=== PATIENT | female | born 1940 | race Caucasian/White ===

== ENCOUNTER 2025-06-18 18:56 | Inpatient (IN) | payer MEDICARE, BC, SELFPAY ==
--- OUTSIDE RECORDS SUMMARY | 2025-06-15 13:13 | XMS_ITS | Encounter Summary ---
Author Organization [facility] Address [address] [place] [address] Care Team Providers Care [employer] Portal Developer Name Role Phone Nieves Bella MD Primary Care Pr ovider Reason for Visit * Reason Comments Altered Mental Status Encounter Details Date Type Department Care Team (Late st Contact Info) Description 06/15/2025 1:13 PM EST - 06/15/2025 9:31 PM EST Emergency [facility] Emergency Department [address] [place] [address] Gato Harrison MD [address] [place] [address] [phone] Vivian Lake MD [address] [place] [address] [phone] Altered mental status, unspecified altered mental status type (Primary Dx) Discharge Disposition: Prison Facility (03) Social History Tobacco Use Types Packs/Day Years Used Date Smoking Tobacco: Never Smokeless Tobacco: Never Alcohol Use Standard Drinks/Week Comments Never 0 (1 standard drink = 0.6 oz pur e alcohol) Hunger Vital Sign Answer Date Recorded Within the past 12 months, y ou worried that your food would run out before you got the money to buy more. Never true 05/06/20 25 Within the past 12 months, t he food you bought just didn't last and you didn't have money to get more. Never true 05/06/2025 [facility] Utilities Answer Date Recorded In the past 12 months has th e electric, gas, oil, or water company threatened to shut off services in your home? No 05/06/2025 Transportation Answer Date Recorded In the past 12 months, has l ack of reliable transportation kept you from medical appointments, meetings, work or from getting things needed for daily living? No 05/06/2025 Housing Answer Date Recorded Housing Risk Low 2 05/06/2025 Housing Risk Medium Not on file 05/06/2025 Housing Risk High Not on file 05/06/2025 What is your living situation today? LSSTEADY 05/06/2025 Comments No Sex and Gender Information Value Date Recorded Sex Assigned at Female 09/17/2023 11:05 AM EST Legal Sex Female 2:10 PM EDT Gender Identity Female 09/17/2023 11:20 AM EST Sexual Orientation Straight 09/17/2023 11 :20 AM EST documented as of this encounter Last Filed Vital Signs Vital Sign Reading Time Taken Comments Blood Pressure 144/66 06/15/2025 9:10 PM EST Pulse 69 06/15/2025 9:10 PM EST Temperature 36.6 C (97.8 F) 06/15/2025 9:10 PM EST Respiratory Rate 14 06/15/2025 9:10 PM EST Oxygen Saturation 99% 06/15/2025 9:10 PM EST Inhaled Oxygen Concentration - - Weight - - Height - - Body Mass Index - - documented in this encounter Discharge Instructions * Discharge Instructions* Vivian Lake MD - 06/15/2025 8:36 PM EST You were seen in the emergency department because of agitation and aggressive behavior. There was concern that you had a urinary tract infection but our test here show you do not have a urinary tractinfection. You were given olanzapine 5 mg to help you calm down and allowed you to cooperate much more freely. Follow- up with your rehab facility as discussed. Continue with your current medications. Consider olanzapine 5 mg p.o. for agitation. documented in this encounter Medications at Time of Discharge aspirin 81 mg capsule Take 1 tablet by mouth every 24 hours. atorvastatin (LIPITOR) 40 mg tablet Take 1 tablet by mouth once a day. carbidopa-levodop a (SINEMET) 25-100 mg tablet Take 2 tablets by mouth 3 times a day. carbidopa-levodop a ER/CR (SINEMET ER/CR) 25-100 mg tablet Take 1 tablet by mouth daily. 04/14/2025 cyanocobalamin (VITAMIN B12) 1,000 mcg tablet Take 500 mcg by mouth daily. 03/31/2025 famotidine (PEPCID) 20 mg tablet Take 20 mg by mouth daily. 03/31/2025 gabapentin (NEURONTIN) 100 mg capsule Take 100 mg by mouth 3 times daily. 05/04/2025 levETIRAcetam (KEPPRA) 500 mg tablet Take 500 mg by mouth 2 times daily. 03/31/2025 levothyroxine (SYNTHROID, LEVOTHROID) 50 mcg tablet Take 1 tablet by mouth once a day. meloxicam (MOBIC) 15 mg tablet Take 15 mg by mouth daily. 05/01/2025 metoprolol succinate 25 mg capsule,sprinkle, ER 24hr 12.5 capsules every 24 hours. olmesartan (BENICAR) 20 mg tablet SMARTSI Tablet(s) By Mouth Daily omeprazole (PriLOSEC) 20 mg capsuleIndication s:Laryngopharynge al reflux (LPR) TAKE 1 CAPSULE BY MOUTH EVERY DAY 30 capsule 1 12/16/2024 Oyster Shell Calcium-Vit D3 500 mg-10 mcg (400 unit) tablet SMARTSI Tablet(s) By Mouth Twice Daily 03/31/2025 predniSONE (DELTASONE) 2.5 mg tablet Take 5 mg by mouth daily. 04/27/2025 venlafaxine XR (EFFEXOR XR) 150 mg capsule Take 1 capsule by mouth once a day. documented as of this encounter Miscellaneous Notes * ED Continuation of Care - Vivian Lake MD - 06/15/2025 8:37 PM EST ED Continuation of Care 06/15/25 8:37 PM Sign out from Dr. Gato Harrison Md Patient was left pending urinalysis for possible urinary tract infection. Patient's urinalysis showed no sign of infection. I spoke with the patient's nurse at her rehab facility and discussed the workup and how she had presented here. She had presented with agitation and aggression but calm and after a small amount of sertraline here. Patient here is now calm cooperative and willing to go back and wants to work towards finishing her hip so she can go home. RON Tequila Dalton : 1940 CSN: [id number] * Emergency Department Information Exchange - ONELIA - Onelia Interface - 06/15/2025 1:06 PM EST [facility] NOTIFICATION 06/15/2025 13:06 TEQUILA DALTON : 1940 [facility]'s patient encounter information: MRN:?[id number] Account Number:?[id number] Billing Account Number:?[id number] Criteria Met High-Utilizers: 6 ED Visits in 6 Months Security and Safety No Security Events were found. ED Care Guidelines There are currently no ED Care Guidelines for this patient. Please check your facility's medical records system. Prescription Drug Data No Prescription Drug Data was found. E.D. Visit Count (12 mo.) Facility Visits [facility] 5 [facility] 2 Total 7 Note: Visits indicate total known visits. Recent Emergency Department Visit Summary Date Facility [facility] State Type Diagnoses or Chief Complaint Jun 15, 2025 [facility] [place] 20[place] [facility] [place] Unspecified fall, initial encounter Contusion of right elbow, initial encounter Fall Arm Injury May 05, 2025 [facility] Emergency Unspecified fall, initial encounter Radiculopathy, lumbar region Syncope and collapse Fall Fall; Back Pain, Leg Pain [facility] [place] [facility] Sciatica, right side Back Pain Body pain Feb 26, 2025 [facility] Emergency Lesion of sciatic nerve, left lower limb Flank Pain Abdominal Pain Feb 25, 2025 [facility] Emergency Urinary tract infection, site not specified Altered Mental Status Confusion Jul 19, 2024 [facility] Emergency Tremors Recent Inpatient Visit Summary Date Facility [facility] Type Diagnoses or Chief Complaint May 05, 2025 [facility] Internal Medicine Unspecified fall, initial encounter Syncope and collapse Radiculopathy, lumbar region Care Team Provider Specialty Phone Fax Service Dates NIEVES BELLA MD Internal Medicine Current FELIX HDZ MD Internal Medicine Current KARL RUTH D.O. Family Medicine [facility] [place] This patient has registered at the [facility] Emergency Department For more information visit: [email or web address] PLEASE NOTE: 1. Any care recommendations and other clinical information are provided as guidelines or for historical purposes only, and providers should exercise their own clinical judgment when providing care. 2. You may only use this information for purposes of treatment, payment or health care operations activities, and subject to the limitations of applicable [employer] Policies. 3. You should consult directly with the organization that provided a care guideline or other clinical history with any questions about additional information or accuracy or completeness of information provided. ? 2024 [employer] documented in this encounter Plan of Treatment Not on file documented as of this encounter Procedures * Due to [place] state law, this organization might not be sharing negative HIV tests. Procedure Name Priority Date/Time Associated Diagnosis Comments URINALYSIS W/REFLEX TO MICROSCOPIC & CULTURE Routine 06/15/2025 7:34 PM EST MICROSCOPIC URINALYSIS ONLY Routine 06/15/2025 7:34 PM EST UA/CULTURE REFLEX Routine 06/15/2025 7:3 4 PM EST CBC AUTO DIFFERENTIAL STAT 06/15/2025 2:46 PM EST COMPREHENSIVE METABOLIC PANEL STAT 06/15/2025 2:46 PM EST documented in this encounter Results * Due to [place] state law, this organization might not be sharing negative HIV tests. * (ABNORMAL) Microscopic Urinalysis Only (06/15/2025 7:34 PM EST) WBC, Urine 0 0 - 2 /HPF [facility] 06/15/2025 8:01 PM EST [facility] RBC, Urine 2 0 - 2 /HPF [facility] 06/15/2025 8:01 PM EST [facility] Bacteria, Urine Rare(A) None /HPF /HPF [facility] 06/15/2025 8:01 PM EST [facility] Hyaline Casts, Urine 0 0 - 2 /LPF [facility] 06/15/2025 8:01 PM EST [facility] Squamous Epithelial Cells, Urine 0 /HPF [facility] 06/15/2025 8:01 PM EST [facility] Urine Urine specimen collection, clean catch / Unknown Non-Blood Collection / Unknown 06/15/2025 7:34 PM EST 06/15/2025 7:47 PM EST us Gato Harrison MD LAB URINE ORDERABLES Final Res ult [facility] [address] [place] [id number], [place] * (ABNORMAL) Urinalysis W/Reflex to Microscopic & Culture (06/15/2025 7:34 PM EST) Color, Urine Light Yellow Colorless, Light Yellow, Yellow, Dark Yellow 06/15/2025 7:51 PM EST [facility] Clarity, Urine Clear Clear 06/15/2025 7:51 PM EST [facility] Specific [place], Urine 1.015 <1.030 06/15/2025 7:51 PM EST [facility] pH, Urine 7.5 5.0 - 8.0 06/15/2025 7:51 PM EST [facility] Protein, Urine Negative Negative 06/15/2025 7:51 PM EST [facility] Glucose, Urine Negative Negative 06/15/2025 7:51 PM EST [facility] Ketones, Urine Negative Negative 06/15/2025 7:51 PM EST [facility] Bilirubin, Urine Negative Negative 06/15/2025 7:51 PM EST [facility] Blood, Urine Trace(A) Negative 06/15/2025 7:51 PM EST [facility] Nitrite, Urine Negative Negative 06/15/2025 7:51 PM EST [facility] Urobilinogen , Urine Normal Normal 06/15/2025 7:51 PM EST [facility] Leukocyte Esterase, Urine Negative Negative 06/15/2025 7:51 PM EST [facility] Urine Urine specimen collection, clean catch / Unknown Non-Blood Collection / Unknown 06/15/2025 7:34 PM EST 06/15/2025 7:47 PM EST [facility] - 06/15/2025 7:51 PM EST Some urinalysis results will not meet the criteria for reflex urine culture although certain urine values may be abnormal. Additional testing can be ordered by the provider if clinically warranted. us Gato Harrison MD LAB URINE ORDERABLES Final Res ult [facility] [address] [place] [address], [place] * (ABNORMAL) CMP - Comprehensive Metabolic Panel (06/15/2025 2:46 PM EST) NA 141 135 - 145 mmol/L 06/15/2025 3:40 PM EST [facility] K 3.3(L) 3.5 - 5.3 mmol/L 06/15/2025 3:40 PM EST [facility] Cl 100 97 - 110 mmol/L 06/15/2025 3:40 PM EST [facility] CO2 29 22 - 32 mmol/L 06/15/2025 3:40 PM EST [facility] Anion Gap 12 5 - 15 06/15/2025 3:40 PM EST [facility] Glucose 142(H) 65 - 99 mg/dL 06/15/2025 3:40 PM EST [facility] Creatinine 0.83 0.50 - 1.20 mg/dL 06/15/2025 3:40 PM EST [facility] Calcium 10.0 8.6 - 10.5 mg/dL 06/15/2025 3:40 PM EST [facility] Total Protein 6.9 6.0 - 8.0 g/dL 06/15/2025 3:40 PM EST [facility] Albumin 4.4 3.5 - 5.2 g/dL 06/15/2025 3:40 PM EST [facility] Bilirubin, Total 0.5 0.2 - 1.2 mg/dL 06/15/2025 3:40 PM EST [facility] Alkaline Phosphatase 77 35 - 129 U/L 06/15/2025 3:40 PM EST [facility] AST 24 10 - 40 U/L 06/15/2025 3:40 PM EST [facility] ALT 15 10 - 40 U/L 06/15/2025 3:40 PM EST [facility] BUN 25(H) 7 - 23 mg/dL 06/15/2025 3:40 PM EST [facility] eGFR 69 >=60 mL/min/1 .73m2 06/15/2025 3:40 PM EST [facility] Comment:The estimated glomer ular filtration rate (eGFR) is calculated using a new formula developed by the NKF-ASN task force to eliminate race-based correction factors. The new formula uses serum/plasma creatinine, age, and gender to determine eGFR. A value below 60mls/min might indicate kidney disease and will be flagged. For additional information, see [place] et al, Am J Kidney Dis. 2021;79(2):268- 288, A Unifying Approach for GFR estimation: Recommendations of the NKF-ASN Task Force on Reassessing the Inclusion of Race in Diagnosing Kidney Disease . Globulin, Total 2.5 2.1 - 4.2 g/dL 06/15/2025 3:40 PM EST [facility] A/G Ratio 1.8 1.5 - 3.0 06/15/2025 3:40 PM EST [facility] Blood Structure of peripheral vein / Unknown Venipuncture / Unknown 06/15/2025 2:46 PM EST 06/15/2025 3:06 PM EST us Gato Harrison MD LAB BLOOD ORDERABLES Final Res ult [facility] [address] [place] [address], [place] * (ABNORMAL) CBC Auto Differential (06/15/2025 2:46 PM EST) [facility] WBC 8.7 3.8 - 10.8 10*3/uL 06/15/2025 3:11 PM EST [facility] RBC 4.20 3.80 - 5.10 10*6/uL 06/15/2025 3:11 PM EST [facility] Hemoglobin 12.6 11.7 - 15.5 g/dL 06/15/2025 3:11 PM EST [facility] Hematocrit 37.7 35.0 - 45.0 % 06/15/2025 3:11 PM EST [facility] MCV 89.8 80.0 - 100.0 fL 06/15/2025 3:11 PM EST [facility] MCH 30.0 27.0 - 33.0 pg 06/15/2025 3:11 PM EST [facility] MCHC 33.4 32.0 - 36.0 g/dL 06/15/2025 3:11 PM EST [facility] RDW 14.4 11.0 - 15.0 % 06/15/2025 3:11 PM EST [facility] Platelets 232 140 - 400 10*3/uL 06/15/2025 3:11 PM EST [facility] MPV 11.1 7.5 - 12.5 fL 06/15/2025 3:11 PM EST [facility] Neutrophil % 85.0 % 06/15/2025 3:11 PM EST [facility] Immature Grans % 0.2 0.0 - 0.9 % 06/15/2025 3:11 PM EST [facility] Lymphocyte % 9.4 % 06/15/2025 3:11 PM EST [facility] Monocyte % 5.1 % 06/15/2025 3:11 PM EST [facility] Eosinophil % 0.1 % 06/15/2025 3:11 PM EST [facility] Basophil % 0.2 % 06/15/2025 3:11 PM EST [facility] Neutrophil # 7.36 1.50 - 7.80 10*3/uL 06/15/2025 3:11 PM EST [facility] Immature Grans # <0.03 <=0.03 10*3/uL 06/15/2025 3:11 PM EST [facility] Lymphocyte # 0.80(L) 0.85 - 3.90 10*3/uL 06/15/2025 3:11 PM EST [facility] Monocyte # 0.40 0.20 - 0.95 10*3/uL 06/15/2025 3:11 PM EST [facility] Eosinophil # <0.03 0.02 - 0.50 10*3/uL 06/15/2025 3:11 PM EST [facility] Basophil # <0.03 0.00 - 0.20 10*3/uL 06/15/2025 3:11 PM EST [facility] nRBC % 0.0 /100 WBCs 06/15/2025 3:11 PM EST [facility] nRBC # <0.01 <0.01 10*3/uL 06/15/2025 3:11 PM EST [facility] Blood Structure of peripheral vein / Unknown Venipuncture / Unknown 06/15/2025 2:46 PM EST 06/15/2025 3:06 PM EST Gato Harrison MD LAB BLOOD ORDERABLES Final Res ult [facility] [address] [place] [address], documented in this encounter Visit Diagnoses Diagnosis Altered mental status, unspecified altered mental status type- Primary documented in this encounter Administered Medications Inactive Administered Medications - up to 3 most recent administrations Medication Order MAR Action Action Date Dose Rate Site carbidopa-levodopa (SINEMET) 25-100 mg tablet 2 tablet 2 tablet, oral, 3 times daily, First dose on Sun06/15/25 at 1455, Until Discontinued carbidopa-levodopa ER/CR (SINEMET ER/CR) 25-100 mg 1 tablet 1 tablet, oral, Nightly, First dose on Sun06/15/25 at 2100, Until Discontinued, Do not crush or chew. Given 06/15/2025 9:05 PM EST 1 tablet OLANZapine (ZyPREXA) injection 5 mg 5 mg, intramuscular, Once, On Sun06/15/25 at 1340, 1 dose, Reconstitute with 2.1 mL of sterile water for injection. Concentration = 5 mg/mL. Given 06/15/2025 1:47 PM EST 5 mg Left Ventrogluteal OLANZapine (ZyPREXA) injection 5 mg 5 mg, intramuscular, Once, On Sun06/15/25 at 1420, 1 dose, Reconstitute with 2.1 mL of sterile water for injection. Concentration = 5 mg/mL. Given 06/15/2025 2:28 PM EST 5 mg Other sterile water injection Pyxis Override Pull Starting on Sun06/15/25 at 1340, 1 dose, Until Sun06/15/25 at 1345, Created by cabinet override Given 06/15/2025 1:45 PM EST documented in this encounter Active and Recently Administered Medications Times are shown in EST. Scheduled Medication Order 06/13/2025 06/14/2025 06/15/2025 carbidopa-levodopa (SINEMET) 25-100 mg tablet 2 tablet 2 tablet, oral, 3 times daily, First dose on Sun06/15/25 at 1455, Until Discontinued 1746 (Not Given - Pr ovider: Tammy Khan RN - Reason: Patient/family refused)2100 (Due) carbidopa-levodopa ER/CR (SINEMET ER/CR) 25-100 mg 1 tablet 1 tablet, oral, Nightly, First dose on Sun06/15/25 at 2100, Until Discontinued, Do not crush or chew. 2104 (Given - Provid er: Priti Batista RN) OLANZapine (ZyPREXA) injection 5 mg (COMPLETED) 5 mg, intramuscular, Once, On Sun06/15/25 at 1340, 1 dose, Reconstitute with 2.1 mL of sterile water for injection. Concentration = 5 mg/mL. 1347 (Given - Provid er: Sonia Cat RN - Comment: Given by Denice LEIVA) OLANZapine (ZyPREXA) injection 5 mg (COMPLETED) 5 mg, intramuscular, Once, On Sun06/15/25 at 1420, 1 dose, Reconstitute with 2.1 mL of sterile water for injection. Concentration = 5 mg/mL. 1428 (Given - Provid er: Sonia Cat RN - Comment: R dorsigluteal muscle.) No Frequency Medication Order 06/13/2025 06/14/2025 06/15/2025 sterile water injection Pyxis Override Pull (COMPLETED) Starting on Sun06/15/25 at 1340, 1 dose, Until Sun06/15/25 at 1345, Created by cabinet override 1345 (Given - Provid er: Tammy Khan RN) documented in this encounter Care Teams [employer] Portal Developer Relationship Specialty Start Date End Date Nieves Bella MD [address] [place] [id number] PCP - General Internal Medicine 09/17/23 documented as of this encounter
--- OUTSIDE RECORDS SUMMARY | 2025-06-16 19:24 | XMS_ITS | Encounter Summary ---
Author Organization [facility] Address [address] [place] [address] Care Team Providers Care Fur Stylist Name Role Phone Nieves Bella MD Primary Care Pr ovider Reason for Visit * Reason Comments Mental Health Problem Encounter Details Date Type Department Care Team (Late st Contact Info) Description 06/16/2025 7:24 PM EST - 06/18/2025 5:13 PM EST Emergency [facility] Emergency Department [address] [place] [address] Trent Warner MD [address] [place] [id number] Collette Brantley DO [address] [place] [phone] Billy Edouard DO [address] [place] [address] Niya Mace MD [address] [place] [phone] Jad Echols MD [address] [place] [address] [phone] Torrey Contreras MD [address] [place] [address] [phone] Discharge Disposition: Short Term/Acute Care [facility] (02) Social History Tobacco Use Types Packs/Day Years [...] money to get more. Never true 05/06/2025 [facility] Utilities Answer Date Recorded In the [...] Sign Reading Time Taken Comments Blood Pressure 146/61 06/18/2025 5:07 PM EST Pulse 65 06/18/2025 5:07 PM EST Temperature 36.8 C (98.2 F) 06/18/2025 5:07 PM EST Respiratory Rate 18 06/18/2025 5:07 PM EST Oxygen Saturation 100% 06/18/2025 5:07 PM EST Inhaled Oxygen Concentration - - Weight 47.6 kg (105 lb) 06/16/2025 8:05 PM EST Height 149.9 cm (4' 11 ) 06/16/2025 8:05 PM EST Body Mass Index 21.21 06/16/2025 8:05 PM EST documented in this encounter Medications at Time of Discharge amLODIPine (NORVASC) 5 mg tablet Take 0.5 tablets (2.5 mg total) by mouth once a day. 15 tablet 05/08/2025 aspirin 81 mg capsule Take 1 tablet [...] a day. documented as of this encounter ED Notes * Trent Warner MD - 06/16/2025 7:23 PM EST 84 y.o. female with presenting to the ED for evaluation of mental status changes Chief Complaint Patient presents with Mental Health Problem 84-year-old female patient who presents with agitation, aggressive behavior, was seen at the ER yesterday, for similar, discharged on as needed dosing of Zyprexa, but stated paranoia, concerned aboutbeing poisoned, would not take the medication, so she was referred to the emergency department for additional evaluation. The patient herself declares no complaints. History provided by: Patient and EMS personnel History limited by: Dementia Past Medical History: Diagnosis Date Brain aneurysm (HCC) Hypertension Myocardial infarction Parkinson disease Past Surgical History: Procedure Laterality Date BACK SURGERY CARDIAC SURGERY No family history on file. Social History Tobacco Use Smoking status: Never Smokeless tobacco: Never Vaping Use Vaping status: Never Used Substance Use Topics Alcohol use: Never Drug use: Never Vitals: 06/16/25 19306/16/252004 BP: 133/57 BP Location: Left arm Patient Position: Lying Pulse: 67 Resp: 16 Temp: 37 ??C (98.6 ??F) TempSrc: Oral SpO2: 98% Weight: 47.6 kg (105 lb) Height: 1.499 m (4' 11 ) Physical Exam Vitals and nursing note reviewed. Constitutional: Appearance: Normal appearance. Comments: Somnolent, does awaken to voice HENT: Head: Normocephalic and atraumatic. Right Ear: External ear normal. Left Ear: External ear normal. Nose: Nose normal. Mouth/Throat: Mouth: Mucous membranes are dry. Pharynx: Oropharynx is clear. Eyes: Extraocular Movements: Extraocular movements intact. Conjunctiva/sclera: Conjunctivae normal. Pupils: Pupils are equal, round, and reactive to light. Cardiovascular: Rate and Rhythm: Normal rate and regular rhythm. Pulses: Normal pulses. Heart sounds: Normal heart sounds. Pulmonary: Effort: Pulmonary effort is normal. No respiratory distress. Breath sounds: Normal breath sounds. No wheezing, rhonchi or rales. Abdominal: General: Abdomen is flat. There is no distension. Tenderness: There is no abdominal tenderness. Musculoskeletal: General: No swelling or tenderness. Normal range of motion. Cervical back: Normal range of motion and neck supple. Skin: General: Skin is warm and dry. Capillary Refill: Capillary refill takes less than 2 seconds. Coloration: Skin is not jaundiced. Neurological: Mental Status: Mental status is at baseline. Psychiatric: Behavior: Behavior normal. Labs Reviewed CBC AUTO DIFFERENTIAL - Abnormal Result Value WBC 9.0 RBC 4.06 Hemoglobin 12.3 Hematocrit 37.3 MCV 91.9 MCH 30.3 MCHC 33.0 RDW 14.4 Platelets 236 MPV 11.0 Neutrophil % 85.3 Immature Grans % 0.2 Lymphocyte % 8.9 Monocyte % 5.4 Eosinophil % 0.0 Basophil % 0.2 Neutrophil # 7.68 Immature Grans # <0.03 Lymphocyte # 0.80 (*) Monocyte # 0.50 Eosinophil # <0.03 Basophil # <0.03 nRBC % 0.0 nRBC # <0.01 BASIC METABOLIC PANEL - Abnormal NA 142 K 4.0 Cl 103 CO2 30 BUN 30 (*) Creatinine 1.55 (*) Glucose 160 (*) Calcium 9.9 Anion Gap 9 eGFR 33 (*) RAPID COVID-19 RNA FOR SURVEILLANCE (ED ONLY) - Normal PCR, SARS CoV-2 RNA Not Detected Narrative: This test was developed, validated and its performance characteristics determined by [facility]. This test has not been cleared or approved by the U.S. Food and Drug Administration (FDA). FDA Policy for Diagnostic Tests for Coronavirus Disease-2019 during the Public Health Emergency issuedOctober 20, 2019, is followed. URINALYSIS W/REFLEX TO MICROSCOPIC & CULTURE Narrative: The following orders were created for panel order Urinalysis W/Reflex to Microscopic & Culture. Procedure Abnormality Status --------- ------ Urinalysis W/Reflex to M...[[id number]] Please view results for these tests on the individual orders. UA/CULTURE REFLEX CT Head WO Contrast Final Result No acute intracranial abnormality. If this radiology report contains a blank impression section, it is an incomplete radiology report.Please contact the interpreting radiologist or applicable radiology division as soon as possible toobtain the completed interpretation. Workstation ID: [id number] Medications lactated Ringer's (LR) bolus 1,000 mL (0 mL intravenous Stopped 06/16/252236) OLANZapine (ZyPREXA) injection 5 mg (5 mg intramuscular Given 06/16/25 3713) Assessment and Plan: 84-year-old female patient presenting with behavioral changes, was seen yesterday at this ER, sent home on Zyprexa but based on paranoia, delusions, did not take any the medications, in the emergency department today she is initially quite somnolent, but then when attempting to move became agitated. Received Zyprexa. Labs remarkable for a doubling of her creatinine, as it seems that she has actually been withholding liquid from herself because she feels that she is being poisoned at her current living facility. Given this, she will certainly benefit from likely inpatient level of care, awaiting urinalysis, providing IV hydration therapy, plan to consult [facility] and she willlikely be a geriatric psychiatric bed search. Trent Warner MD 06/16/25 9895 documented in this encounter Miscellaneous Notes * ED Continuation of Care - Trent Warner MD - 06/18/2025 12:30 PM EST ED Continuation of Care 06/18/2025 12:30 PM Sign out from Dr. Jad Echols Md Handoff Patient awaiting [facility] / placement. BMP resolved PAPI, EKG with TWI but nothing actionable. Medically clear Shift Events ED Course as of 06/18/25 1230 Lauren Jun 18, 2025 1222 Reviewed EKG - nonspecific twi inferiorly; no ischemia [JH] ED Course User Index [JH] Trent Warner MD Assessment and Plan: Medically clear for psych admit Tequila Hernandez : 1940 [facility]: [id number] * Plan of Care - AMILCAR Bae - 06/18/2025 10:18 AM EST SALES VICE PRESIDENT participated in Emergency Department/Behavioral Health rounds with [facility] team members via video conferencing. Present on the call were representatives from [facility], [facility], [facility], and [facility] care coordination and leadership. Pt's plan of care was discussed and the following is a clinical update: GPU bed search is ongoing. Shira is reviewing. Per [facility], pt's risk level in the community is mild and risk level in the hospital is negligible. SALES VICE PRESIDENT will remain available for pt support and coordination of pt's plan of care. AMILCAR Bae * ED Continuation of Care - Jad Echols MD - 06/18/2025 5:41 AM EST ED Continuation of Care 06/18/2025 5:41 AM Sign out from Dr. Niya Mace Md Assessment and Plan: This patient has had a somewhat twiddling course here in the emergency room over the arc of the day and evening shift today. The patient was given olanzapine last night and has been recurrently somnolent since that time period. The patient had relatively little oral intake overthe course of the day and evening shifts and had changes in her urine output. The patient has been putting out a small amount of much darker and more concentrated urine. She was given a liter bolus on the evening shift by Dr. Mace, but this did not improve her urine output or sensorium. I askedthat the nurses obtain a repeat BMP on the patient and provided some additional IV fluid hydration here in the emergency room, along with maintenance fluids. Nursing will also perform bladder scan toensure that the patient does not have any urine retention issues. I have ordered a repeat urine to be sent for further evaluation to ensure he does not have a burgeoning urinary tract infection that requires treatment, although her urine yesterday was relatively normal. The patient continues at this time to be a hold for [facility] psych placement. I will discuss the changes in sensorium with the daytime provider for further disposition planning. Tequila Bragaros : 1940 CSN: [id number] * ED Continuation of Care - Billy Edouard DO - 06/17/2025 4:21 PM EST ED Continuation of Care 06/17/25 4:21 PM Sign out from Dr. Collette Brantley DO MDM Patient received on sign out, awaiting crisis [facility] psych placement for behavioral health issues. Patient has already been medically cleared. Patient is currently on section 12 hold. No other acute issues signed over to me and nothing else pending at this time. No acute issues brought to my attention while under my care. Remainder of care and final disposition signed over to ED colleague Tequila M Sha : 1940 CSN: [id number] * ED Continuation of Care - Niya Mace MD - 06/17/2025 3:52 PM EST ED Continuation of Care 06/17/25 3:52 PM Sign out [address] Dr. Billy Edouard Do. 84-year-old female with history of Parkinson's, [facility], she has had increased confusion and aggressive behavior. Shealso has paranoia about being poisoned. Typically, she lives at home with her son. She is on a section 12. At time of signout, [facility] evaluation is pending. MDM 1530: Patient has been evaluated by Dorothy from [facility], who recommends [facility] admission. Patient has had no p.o. intake during my shift and very little activity. Nurse has noted that the urine is dark. Urine output is decreased. Will treat with a liter of lactated Ringer's and attempt toambulate patient. Patient signed out to Dr. Echols at 2315. Tequila López Sha : 1940 CSN: [id number] * Emergency Department Information Exchange - [facility] [place] [facility] - 06/16/2025 7:24 PM EST [facility] NOTIFICATION 06/16/2025 19:23 TEQUILA HERNANDEZ : 1940 [facility]'s patient encounter information: MRN:[id number] Account Number:?[id number] Billing Account Number:?[id number] Criteria Met High-Utilizers: 6 ED Visits in 6 Months Security and Safety No Security Events were found. ED Care Guidelines There are currently no ED Care Guidelines for this patient. Please check your facility's medical records system. Prescription Drug Data No Prescription Drug Data was found. E.D. Visit Count (12 mo.) Facility Visits [facility] 5 [facility] 3 Total 8 Note: Visits indicate total known visits. Recent Emergency Department Visit Summary Date Facility [facility] State Type Diagnoses or Chief Complaint Jun 16, 2025 [facility] [place] Emergency Altered Mental Status Jun 15, 2025 [facility] [place] Emergency Altered mental status, unspecified Altered Mental Status May 26, 2025 [facility]. [place] Emergency Unspecified fall, initial encounter Contusion of right elbow, initial encounter Fall Arm Injury May 05, 2025 [facility] Emergency Unspecified fall, initial encounter Radiculopathy, lumbar region Syncope and collapse Fall Fall; Back Pain, Leg Pain May 03, 2025 [facility] Emergency Sciatica, right side Back Pain Body pain Feb 26, 2025 [facility] Emergency Lesion of sciatic nerve, left lower limb Flank Pain Abdominal Pain Feb 25, 2025 [facility] Emergency Urinary tract infection, site not specified Altered Mental Status Confusion Jul 19, 2024 [facility] Emergency Tremors Recent Inpatient Visit Summary Date Facility [facility] State Type Diagnoses or Chief Complaint May 05, 2025 [facility] Internal Medicine Unspecified fall, initial encounter Syncope and collapse Radiculopathy, lumbar region Care Team Provider Specialty Phone Fax Service Dates NIEVES BELLA MD Internal Medicine Current FELIX HDZ MD Internal Medicine Current KARL RUTH D.O. Family Medicine Current [facility] This patient has registered at the [facility] Emergency Department For more information visit: [email or web address] PLEASE NOTE: 1. Any care recommendations and other clinical information are provided as guidelines or for historical purposes only, and providers should exercise their own clinical judgment when providing care. 2. You may only use this information for purposes of treatment, payment or health care operations activities, and subject to the limitations of applicable [employer] Policies. 3. You should consult directly with the organization that provided a care guideline or other clinical history with any questions about additional information or accuracy or completeness of information provided. ? 2024 [email or web address] documented in this encounter Plan of Treatment Not on file documented as of this encounter Procedures * Due to [place] state law, this organization might not be sharing negative HIV tests. Procedure Name Priority Date/Time Associated Diagnosis Comments URINALYSIS W/REFLEX TO MICROSCOPIC & CULTURE STAT 06/18/2025 6:15 AM EST MICROSCOPIC URINALYSIS ONLY STAT 06/18/2025 6:15 AM EST UA/CULTURE REFLEX STAT 06/18/2025 6:1 5 AM EST BASIC METABOLIC PANEL STAT 06/18/2025 5:04 AM EST BASIC METABOLIC PANEL STAT 06/17/2025 7:32 AM EST URINALYSIS W/REFLEX TO MICROSCOPIC & CULTURE Routine 06/17/2025 12:58 AM EST MICROSCOPIC URINALYSIS ONLY Routine 06/17/2025 12:58 AM EST UA/CULTURE REFLEX Routine 06/17/2025 12: [address] HEAD WO CONTRAST STAT 06/16/2025 8 :59 PM EST RAPID COVID-19 RNA FOR SURVEILLANCE (ED ONLY) STAT 06/16/2025 8:41 PM EST CBC AUTO DIFFERENTIAL STAT 06/16/2025 8:41 PM EST BASIC METABOLIC PANEL STAT 06/16/2025 8:41 PM EST documented in this encounter Results * Due to [place] state law, this organization might not be sharing negative HIV tests. * (ABNORMAL) Microscopic Urinalysis Only (06/18/2025 6:15 AM EST) WBC, Urine 3(H) 0 - 2 /HPF [facility] 06/18/2025 6:31 AM EST [facility] RBC, Urine 10(H) 0 - 2 /HPF [facility] 06/18/2025 6:31 AM EST [facility] Bacteria, Urine Occasiona l(A) None /HPF /HPF [facility] 06/18/2025 6:31 AM EST [facility] Hyaline Casts, Urine 5(H) 0 - 2 /LPF [facility] 06/18/2025 6:31 AM EST [facility] Squamous Epithelial Cells, Urine 1 /HPF [facility] 06/18/2025 6:31 AM EST [facility] Mucus, Urine Many /LPF [facility] 06/18/2025 6:31 AM EST [facility] Urine Urine specimen collection, clean catch / Unknown Non-Blood Collection / Unknown 06/18/2025 6:15 AM EST 06/18/2025 6:17 AM EST us Jad Echols MD LAB URINE ORDERABLES Final R esult [facility] [address] [place] [address], [place] * (ABNORMAL) Urinalysis W/Reflex to Microscopic & Culture (06/18/2025 6:15 AM EST) Color, Urine Yellow Colorless, Light Yellow, Yellow, Dark Yellow 06/18/2025 6:21 AM EST [facility] Clarity, Urine Slightly Cloudy(A) Clear 06/18/2025 6:21 AM EST [facility] Specific Oldhams, Urine 1.025 <1.030 06/18/2025 6:21 AM EST [facility] pH, Urine 6.0 5.0 - 8.0 06/18/2025 6:21 AM EST [facility] Protein, Urine Trace(A) Negative 06/18/2025 6:21 AM EST [facility] Glucose, Urine Negative Negative 06/18/2025 6:21 AM EST [facility] Ketones, Urine Negative Negative 06/18/2025 6:21 AM EST [facility] Bilirubin, Urine Negative Negative 06/18/2025 6:21 AM EST [facility] Blood, Urine Trace(A) Negative 06/18/2025 6:21 AM EST [facility] Nitrite, Urine Negative Negative 06/18/2025 6:21 AM EST [facility] Urobilinogen , Urine Normal Normal 06/18/2025 6:21 AM EST [facility] Leukocyte Esterase, Urine Negative Negative 06/18/2025 6:21 AM EST [facility] Urine Urine specimen collection, clean catch / Unknown Non-Blood Collection / Unknown 06/18/2025 6:15 AM EST 06/18/2025 6:17 AM EST [facility] - 06/18/2025 6:21 AM EST Some urinalysis results will not meet the criteria for reflex urine culture although certain urine values may be abnormal. Additional testing can be ordered by the provider if clinically warranted. us Jad Echols MD LAB URINE ORDERABLES Final R esult [facility] [address] [place] [address], [place] * (ABNORMAL) BMP - Basic Metabolic Panel (06/18/2025 5:04 AM EST) NA 146(H) 135 - 145 mmol/L 06/18/2025 5:57 AM EST [facility] K 3.8 3.5 - 5.3 mmol/L 06/18/2025 5:57 AM EST [facility] Cl 108 97 - 110 mmol/L 06/18/2025 5:57 AM EST [facility] CO2 31 22 - 32 mmol/L 06/18/2025 5:57 AM EST [facility] BUN 29(H) 7 - 23 mg/dL 06/18/2025 5:57 AM EST [facility] Creatinine 0.83 0.50 - 1.20 mg/dL 06/18/2025 5:57 AM EST [facility] Glucose 84 65 - 99 mg/dL 06/18/2025 5:57 AM EST [facility] Calcium 9.4 8.6 - 10.5 mg/dL 06/18/2025 5:57 AM EST [facility] Anion Gap 7 5 - 15 06/18/2025 5:57 AM EST [facility] eGFR 69 >=60 mL/min/1 .73m2 06/18/2025 5:57 AM EST [facility] Comment:The estimated glomer ular filtration rate (eGFR) is calculated using a new formula developed by the NKF-ASN task force to eliminate race-based correction factors. The new formula uses serum/plasma creatinine, age, and gender to determine eGFR. A value below 60mls/min might indicate kidney disease and will be flagged. For additional information, see Rowdy et al, Am J Kidney Dis. 2021;79(2):268- 288, A Unifying Approach for GFR estimation: Recommendations of the NKF-ASN Task Force on Reassessing the Inclusion of Race in Diagnosing Kidney Disease . Blood Structure of peripheral vein / Unknown Venipuncture / Unknown 06/18/2025 5:04 AM EST 06/18/2025 5:21 AM EST us Jad Echols MD LAB BLOOD ORDERABLES Final R esult [facility] [address] [place] [address], * (ABNORMAL) BMP - Basic Metabolic Panel (06/17/2025 7:32 AM EST) NA 146(H) 135 - 145 mmol/L 06/17/2025 8:38 AM EST [facility] K 3.4(L) 3.5 - 5.3 mmol/L 06/17/2025 8:38 AM EST [facility] Cl 109 97 - 110 mmol/L 06/17/2025 8:38 AM EST [facility] CO2 27 22 - 32 mmol/L 06/17/2025 8:38 AM EST [facility] BUN 18 7 - 23 mg/dL 06/17/2025 8:38 AM EST [facility] Creatinine 0.65 0.50 - 1.20 mg/dL 06/17/2025 8:38 AM EST [facility] Glucose 86 65 - 99 mg/dL 06/17/2025 8:38 AM EST [facility] Calcium 8.9 8.6 - 10.5 mg/dL 06/17/2025 8:38 AM EST [facility] Anion Gap 10 5 - 15 06/17/2025 8:38 AM EST [facility] eGFR 86 >=60 mL/min/1 .73m2 06/17/2025 8:38 AM EST [facility] Comment:The estimated glomer ular filtration rate (eGFR) is calculated using a new formula developed by the NKF-ASN task force to eliminate race-based correction factors. The new formula uses serum/plasma creatinine, age, and gender to determine eGFR. A value below 60mls/min might indicate kidney disease and will be flagged. For additional information, see Rowdy et al, Am J Kidney Dis. 2021;79(2):268- 288, A Unifying Approach for GFR estimation: Recommendations of the NKF-ASN Task Force on Reassessing the Inclusion of Race in Diagnosing Kidney Disease . Blood Structure of peripheral vein / Unknown Venipuncture / Unknown 06/17/2025 7:32 AM EST 06/17/2025 7:40 AM EST us Collette E Pelis DO LAB BLOOD ORDERABLES Final Resu lt [facility] [address] [place] [address], * (ABNORMAL) Microscopic Urinalysis Only (06/17/2025 12:58 AM EST) WBC, Urine 0 0 - 2 /HPF [facility] MAN[facility] 06/17/2025 1:39 AM EST [facility] RBC, Urine 3(H) 0 - 2 /HPF [facility] MANUAL 06/17/2025 1:39 AM EST [facility] Bacteria, Urine Rare(A) None /HPF /HPF [facility] MANUAL 06/17/2025 1:39 AM EST [facility] Hyaline Casts, Urine 0 0 - 2 /LPF [facility] MANUAL 06/17/2025 1:39 AM EST [facility] Squamous Epithelial Cells, Urine 1 /HPF [facility] MANUAL 06/17/2025 1:39 AM EST [facility] Urine Urine specimen collection, clean catch / Unknown Non-Blood Collection / Unknown 06/17/2025 12:58 AM EST 06/17/2025 1:21 AM EST us Trent Warner MD LAB URINE ORDERABLES Final Res ult [facility] [address] [place] [address], [place] * (ABNORMAL) Urinalysis W/Reflex to Microscopic & Culture (06/17/2025 12:58 AM EST) Color, Urine Colorless Colorless, Light Yellow, Yellow, Dark Yellow 06/17/2025 1:31 AM EST [facility] Clarity, Urine Clear Clear [facility] 06/17/2025 1:31 AM EST [facility] Specific [place], Urine 1.010 <1.030 06/17/2025 1:31 AM EST [facility] pH, Urine 7.0 5.0 - 8.0 06/17/2025 1:31 AM EST [facility] Protein, Urine Negative Negative 06/17/2025 1:31 AM EST [facility] Glucose, Urine Negative Negative 06/17/2025 1:31 AM EST [facility] Ketones, Urine Negative Negative 06/17/2025 1:31 AM EST [facility] Bilirubin, Urine Negative Negative 06/17/2025 1:31 AM EST [facility] Blood, Urine Trace(A) Negative 06/17/2025 1:31 AM EST [facility] Nitrite, Urine Negative Negative 06/17/2025 1:31 AM EST [facility] Urobilinogen, Urine Normal Normal 06/17/2025 1:31 AM EST [facility] Leukocyte Esterase, Urine Negative Negative 06/17/2025 1:31 AM EST [facility] Urine Urine specimen collection, clean catch / Unknown Non-Blood Collection / Unknown 06/17/2025 12:58 AM EST 06/17/2025 1:21 AM EST Narrative [facility] - 06/17/2025 1:31 AM EST Some urinalysis results will not meet the criteria for reflex urine culture although certain urine values may be abnormal. Additional testing can be ordered by the provider if clinically warranted. us Trent Warner MD LAB URINE ORDERABLES Final Res ult [facility] [address] [place] [address], [place] * CT Head WO Contrast (06/16/2025 8:59 PM EST) Anatomical Region Laterality Modality Head and Neck Computed Tomogra phy 06/16/2025 9:01 PM EST Impressions 06/16/2025 9:02 PM EST No acute intracranial abnormality. If this radiology report contains a blank impression section, it is an incomplete radiology report. Please contact the interpreting radiologist or applicable radiology division as soon as possible to obtain the completed interpretation. Workstation ID: [id number] Narrative 06/16/2025 9:02 PM EST COMPARISON: 05/26/2025. FINDINGS: 3D volume-rendered reconstructions were performed under my concurrent supervision at the acquisition workstation. There is no shift of midline structures. Chronic periventricular white matter changes and diffuse volume loss are stable. The brain parenchyma is otherwise normal. There are no focal mass lesions or abnormal intra or extra-axial fluid collections. The paranasal sinuses and mastoid air cells are well developed and well-aerated without focal mass lesion or air-fluid levels. Resulting Agency Comment [id number] Procedure Note Danielito Lindquist MD - 06/16/2025 COMPARISON: 05/26/2025. FINDINGS: 3D volume-rendered reconstructions were performed under my concurrentsupervision at the acquisition workstation. There is no shift of midline structures. Chronic periventricular whitematter changes and diffuse volume loss are stable. The brain parenchymais otherwise normal. There are no focal mass lesions or abnormal intra orextra-axial fluid collections. The paranasal sinuses and mastoid air cells are well developed andwell-aerated without focal mass lesion or air-fluid levels. IMPRESSION: No acute intracranial abnormality. If this radiology report contains a blank impression section, it is anincomplete radiology report. Please contact the interpreting radiologistor applicable radiology division as soon as possible to obtain thecompleted interpretation. Workstation ID: [id number] Trent Warner MD IMG CT PROCEDURES Final Result * Rapid COVID-19 for Surveillance - Psych/Admission (06/16/2025 8:41 PM EST) Pathologist [facility] PCR, SARS CoV-2 RNA Not Detected Not Detected [employer] 06/16/2025 9:23 PM EST [facility] Comment:A Not Detected (Nega tive) test result is indicative of the absence of SARS-CoV-2 RNA at the level of LoD (Limit of Detection). A negative result does not rule out the possibility of COVID-19 and should not be used as the sole basis for treatment or patient management decisions. If COVID-19 is still suspected, based on exposure history together with other clinical findings, re-testing should be considered. Swab Specimen from nasopharyngeal structure / Unknown Non-Blood Collection / Unknown 06/16/2025 8:41 PM EST 06/16/2025 8:49 PM EST Narrative [facility] - 06/16/2025 9:23 PM EST This test was developed, validated and its performance characteristics determined by [facility] Clinical Labs. This test has not been cleared or approved by the U.S. Food and Drug Administration (FDA). FDA Policy for Diagnostic Tests for Coronavirus Disease-2019 during the Public Health Emergency issued October 20, 2019, is followed. Trent Warner MD LAB BODY FLUIDS AND STOOLS ORD ERABLES Final Result [facility] [address] [place] [address], [place] * (ABNORMAL) BMP - Basic Metabolic Panel (06/16/2025 8:41 PM EST) NA 142 135 - 145 mmol/L 06/16/2025 9:33 PM EST [facility] K 4.0 3.5 - 5.3 mmol/L 06/16/2025 9:33 PM EST [facility] Cl 103 97 - 110 mmol/L 06/16/2025 9:33 PM EST [facility] CO2 30 22 - 32 mmol/L 06/16/2025 9:33 PM EST [facility] BUN 30(H) 7 - 23 mg/dL 06/16/2025 9:33 PM EST [facility] Creatinine 1.55(H) 0.50 - 1.20 mg/dL 06/16/2025 9:33 PM EST [facility] Glucose 160(H) 65 - 99 mg/dL 06/16/2025 9:33 PM EST [facility] Calcium 9.9 8.6 - 10.5 mg/dL 06/16/2025 9:33 PM EST [facility] Anion Gap 9 5 - 15 06/16/2025 9:33 PM EST [facility] eGFR 33(L) >=60 mL/min/1 .73m2 06/16/2025 9:33 PM EST [facility] Comment:The estimated glomer ular filtration rate (eGFR) is calculated using a new formula developed by the NKF-ASN task force to eliminate race-based correction factors. The new formula uses serum/plasma creatinine, age, and gender to determine eGFR. A value below 60mls/min might indicate kidney disease and will be flagged. For additional information, see Rowdy et al, Am J Kidney Dis. 2021;79(2):268- 288, A Unifying Approach for GFR estimation: Recommendations of the NKF-ASN Task Force on Reassessing the Inclusion of Race in Diagnosing Kidney Disease . Blood Structure of peripheral vein / Unknown Venipuncture / Unknown 06/16/2025 8:41 PM EST 06/16/2025 8:49 PM EST us Trent Warner MD LAB BLOOD ORDERABLES Final Res ult [facility] [address] [place] [address], [place] * (ABNORMAL) CBC Auto Differential (06/16/2025 8:41 PM EST) WBC 9.0 3.8 - 10.8 10*3/uL 06/16/2025 8:53 PM EST [facility] RBC 4.06 3.80 - 5.10 10*6/uL 06/16/2025 8:53 PM EST [facility] Hemoglobin 12.3 11.7 - 15.5 g/dL 06/16/2025 8:53 PM EST [facility] Hematocrit 37.3 35.0 - 45.0 % 06/16/2025 8:53 PM EST [facility] MCV 91.9 80.0 - 100.0 fL 06/16/2025 8:53 PM EST [facility] MCH 30.3 27.0 - 33.0 pg 06/16/2025 8:53 PM EST [facility] MCHC 33.0 32.0 - 36.0 g/dL 06/16/2025 8:53 PM EST [facility] RDW 14.4 11.0 - 15.0 % 06/16/2025 8:53 PM EST [facility] Platelets 236 140 - 400 10*3/uL 06/16/2025 8:53 PM EST [facility] MPV 11.0 7.5 - 12.5 fL 06/16/2025 8:53 PM EST [facility] Neutrophil % 85.3 % 06/16/2025 8:53 PM EST [facility] Immature Grans % 0.2 0.0 - 0.9 % 06/16/2025 8:53 PM EST [facility] Lymphocyte % 8.9 % 06/16/2025 8:53 PM EST [facility] Monocyte % 5.4 % 06/16/2025 8:53 PM EST [facility] Eosinophil % 0.0 % 06/16/2025 8:53 PM EST [facility] Basophil % 0.2 % 06/16/2025 8:53 PM EST [facility] Neutrophil # 7.68 1.50 - 7.80 10*3/uL 06/16/2025 8:53 PM EST [facility] Immature Grans # <0.03 <=0.03 10*3/uL 06/16/2025 8:53 PM EST [facility] Lymphocyte # 0.80(L) 0.85 - 3.90 10*3/uL 06/16/2025 8:53 PM EST [facility] Monocyte # 0.50 0.20 - 0.95 10*3/uL 06/16/2025 8:53 PM EST [facility] Eosinophil # <0.03 0.02 - 0.50 10*3/uL 06/16/2025 8:53 PM EST [facility] Basophil # <0.03 0.00 - 0.20 10*3/uL 06/16/2025 8:53 PM EST [facility] nRBC % 0.0 /100 WBCs 06/16/2025 8:53 PM EST [facility] nRBC # <0.01 <0.01 10*3/uL 06/16/2025 8:53 PM EST [facility] Blood Structure of peripheral vein / Unknown Venipuncture / Unknown 06/16/2025 8:41 PM EST 06/16/2025 8:49 PM EST us Trent Warner MD LAB BLOOD ORDERABLES Final Res ult [facility] [address] [place] [address], documented in this encounter Visit Diagnoses Not on filedocumented in this encounter Administered Medications Active Administered Medications - up to 3 most recent administrations Medication Order MAR Action Action Date Dose Rate Site amLODIPine (NORVASC) tablet 2.5 mg 2.5 mg, oral, Daily, First dose on Sun06/17/25 at 0900, Until Discontinued, Hold for SBP less than 100 mmHg. Given 06/18/2025 9:30 AM EST 2.5 mg Given 06/17/2025 9:09 AM EST 2.5 mg aspirin EC tablet 81 mg 81 mg, oral, Daily, First dose on Sun06/17/25 at 0900, Until Discontinued, Do not crush. Given 06/18/2025 9:30 AM EST 8 1 mg Given 06/17/2025 9:09 AM EST 81 mg atorvastatin (LIPITOR) tablet 40 mg 40 mg, oral, Daily, First dose on Sun06/17/25 at 0900, Until Discontinued Given 06/18/2025 9:30 AM EST 40 mg Given 06/17/2025 9:09 AM EST 40 mg carbidopa-levodopa (SINEMET) 25-100 mg tablet 2 tablet 2 tablet, oral, 3 times daily, First dose (after last modification) on Sun06/17/25 at 0900, Until Discontinued Given 06/17/2025 9:09 AM EST 2 tablets carbidopa-levodopa ER/CR (SINEMET ER/CR) 25-100 mg 1 tablet 1 tablet, oral, Nightly, First dose (after last modification) on Sun06/16/25 at 2345, Until Discontinued, Do not crush or chew. Given 06/17/2025 1:01 AM EST 1 tablet cephalexin (KEFLEX) capsule 500 mg 500 mg, oral, Every 12 hours scheduled, First dose on Lauren 06/18/25 at 1055, 5 doses, Last dose on 06/20/25 at 0900, Reason for Therapy: Bacterial Infection Suspected, Indication: Urinary Tract Infection cyanocobalamin (VITAMIN B12) tablet 500 mcg 500 mcg, oral, Daily, First dose on Sun06/17/25 at 0900, Until Discontinued Given 06/18/2025 9:30 AM EST 500 mcg Given 06/17/2025 9:09 AM EST 500 mcg famotidine (PEPCID) tablet 20 mg 20 mg, oral, Daily, First dose on Sun06/17/25 at 0900, Until Discontinued Given 06/18/2025 9:30 AM EST 20 mg Given 06/17/2025 9:08 AM EST 20 mg gabapentin (NEURONTIN) capsule 100 mg 100 mg, oral, Every 8 hours scheduled, First dose on Sun06/16/25 at 2345, Until Discontinued, Give 2 hour before or after Mg+, Al-based antacids. Given 06/18/2025 9:30 AM EST 100 mg Given 06/17/2025 9:09 AM EST 100 mg Given 06/17/2025 1:01 AM EST 100 mg levETIRAcetam (KEPPRA) tablet 500 mg 500 mg, oral, Every 12 hours scheduled, First dose on Sun06/16/25 at 2345, Until Discontinued Given 06/18/2025 9:30 AM EST 500 mg Given 06/17/2025 9:09 AM EST 500 mg Given 06/17/2025 1:02 AM EST 500 mg levothyroxine (SYNTHROID, LEVOTHROID) tablet 50 mcg 50 mcg, oral, Daily, First dose on Sun06/17/25 at 0900, Until Discontinued Given 06/18/2025 9:30 AM EST 50 mcg Given 06/17/2025 9:09 AM EST 50 mcg metoprolol tartrate (LOPRESSOR) tablet 12.5 mg 12.5 mg, oral, Every 12 hours scheduled, First dose on Sun06/16/25 at 2345, Until Discontinued Given 06/18/2025 9:30 AM EST 12.5 mg Given 06/17/2025 9:08 AM EST 12.5 mg Given 06/17/2025 1:02 AM EST 12.[address] (PROTONIX) tablet 20 mg 20 mg, oral, Daily, First dose on Sun06/17/25 at 0900, Until Discontinued, Do not crush. Given 06/17/2025 9:09 AM EST 2 0 mg predniSONE (DELTASONE) tablet 5 mg 5 mg, oral, Daily, First dose on Sun06/17/25 at 0900, Until Discontinued Given 06/18/2025 9:30 AM EST 5 mg Given 06/17/2025 9:08 AM EST 5 mg sodium chloride 0.9% (NS) premix infusion intravenous, at 150 mL/hr, Continuous, Starting on Sun06/18/25 at 0500, Until Discontinued valsartan (DIOVAN) tablet 80 mg 80 mg, oral, Daily, First dose on Sun06/17/25 at 0900, Until Discontinued, Hold for SBP less than 100 mmHg. Given 06/18/2025 9:30 AM EST 80 mg Given 06/17/2025 9:08 AM EST 80 mg venlafaxine XR (EFFEXOR XR) capsule 150 mg 150 mg, oral, Daily, First dose on Sun06/17/25 at 0900, Until Discontinued, Do not crush. Given 06/18/2025 9:32 AM EST 150 mg Given 06/17/2025 9:09 AM EST 150 mg Inactive Administered Medications - up to 3 most recent administrations Medication Order MAR Action Action Date Dose Rate Site lactated Ringer's (LR) bolus 1,000 mL 1,000 mL, intravenous, Once, On Sun06/16/25 at 2030, 1 dose New Bag/Syringe 06/16/2025 8:30 PM EST 1,000 mL lactated Ringer's (LR) bolus 1,000 mL 1,000 mL, intravenous, Once, On Sun06/17/25 at 2210, 1 dose, Reason for giving less than 30ml/kg actual body weight? Not Sepsis New Bag/Syringe 06/17/2025 10:11 PM EST 1,000 mL OLANZapine (ZyPREXA) injection 5 mg 5 mg, intramuscular, Once, On Sun06/16/25 at 2240, 1 dose, Reconstitute with 2.1 mL of sterile water for injection. Concentration = 5 mg/mL. Given 06/16/2025 10:44 PM EST 5 mg Left Thigh sodium chloride 0.9% (NS) bolus 1,000 mL 1,000 mL, intravenous, Once, On Lauren 06/18/25 at 0500, 1 dose, Reason for giving less than 30ml/kg actual body weight? Not Sepsis New Bag/Syringe 06/18/2025 5:00 AM EST 1,000 mL documented in this encounter Active and Recently Administered Medications Times are shown in EST. Scheduled Medication Order 06/16/2025 06/17/2025 06/18/2025 amLODIPine (NORVASC) tablet 2.5 mg 2.5 mg, oral, Daily, First dose on Sun06/17/25 at 0900, Until Discontinued, Hold for SBP less than 100 mmHg. 09 (Given - Provider: Leatha Barrett RN) 09 (Given - Provider: Robyn Wasserman RN) aspirin EC tablet 81 mg 81 mg, oral, Daily, First dose on Sun06/17/25 at 0900, Until Discontinued, Do not crush. 09 (Given - Provider: Leatha Barrett RN) 0930 (Given - Provider: Robyn Wasserman RN) atorvastatin (LIPITOR) tablet 40 mg 40 mg, oral, Daily, First dose on Sun06/17/25 at 0900, Until Discontinued 908 (Given - Provider: Leatha Barrett RN) 0930 (Given - Provider: Robyn Wasserman RN) carbidopa-levodopa (SINEMET) 25-100 mg tablet 2 tablet 2 tablet, oral, 3 times daily, First dose (after last modification) on Sun06/17/25 at 0900, Until Discontinued 908 (Given - Provider: Leatha Barrett RN)1354 (Not Given - Provider: Leatha Barrett RN - Reason: Other - See Comment - Comment: pt sleeping, not easily arousable at this time.)1700 (Not Given - Provider: Leatha Barrett RN - Reason: Other - See Comment - Comment: pt asleep) 0900 (Not Given - Provider: Robyn Wasserman RN - Reason: Other - See Comment - Comment: cannot crushe med Dr. Warner updated)1300 (Not Given - Provider: Robyn Wasserman RN - Reason: Other - See Comment - Comment: pt sleeping)1700 (Due) carbidopa-levodopa ER/CR (SINEMET ER/CR) 25-100 mg 1 tablet 1 tablet, oral, Nightly, First dose (after last modification) on Sun06/16/25 at 2345, Until Discontinued, Do not crush or chew. 0101 (Given - Provider: Rayna Bonilla, ABBIE)2099 (Not Given - Provider: Rayna Bonilla RN - Reason: See Provider Order - Comment: Not given d/t pt sleeping in between care. Not following direction even when offered ice cream or applesauce.) 2099 (Due) cephalexin (KEFLEX) capsule 500 mg 500 mg, oral, Every 12 hours scheduled, First dose on Lauren 06/18/25 at 1055, 5 doses, Last dose on 06/20/25 at 0900, Reason for Therapy: Bacterial Infection Suspected, Indication: Urinary Tract Infection 1128 (Not Given - Provider: Robyn Wasserman RN - Reason: Patient/family refused - Comment: educated pt AB for UTI - multi attempts to med pt refused closed lips and didn't open mouth)2099 (Due) cyanocobalamin (VITAMIN B12) tablet 500 mcg 500 mcg, oral, Daily, First dose on Sun06/17/25 at 0900, Until Discontinued 09 (Given - Provider: Leatha Barrett RN) 929 (Given - Provider: Robyn Wasserman RN) famotidine (PEPCID) tablet 20 mg 20 mg, oral, Daily, First dose on Sun06/17/25 at 0900, Until Discontinued 09 (Given - Provider: Leatha Barrett RN) 929 (Given - Provider: Robyn Wasserman RN) gabapentin (NEURONTIN) capsule 100 mg 100 mg, oral, Every 8 hours scheduled, First dose on Sun06/16/25 at 2345, Until Discontinued, Give 2 hour before or after Mg+, Al-based antacids. 010 (Given - Provider: Rayna Bonilla RN)0909 (Given - Provider: Leatha Barrett RN)1354 (Not Given - Provider: Leatha Barrett RN - Reason: Other - See Comment - Comment: pt sleeping, not easily arousable at this time. medication was placed in ice cream for easy swallowing however patient not awake enough)2199 (Not Given - Provider: Rayna Bonilla RN - Reason: Other - See Comment - Comment: Not given d/t pt sleeping in between care. Not following direction even when offered ice cream or applesauce.) 09 (Given - Provider: Robyn Wasserman RN)1400 (Not Given - Provider: Robyn Wassermna RN - Reason: Other - See Comment - Comment: pt sleeping)2199 (Due) lactated Ringer's (LR) bolus 1,000 mL (COMPLETED) 1,000 mL, intravenous, Once, On Sun06/16/25 at 2030, 1 dose 2030 (New Bag/Syringe - Provider: Rayna Bonilla RN - Comment: Uhnable to scan)2236 (Stopped - Provider: Mariza Mccann RN) lactated Ringer's (LR) bolus 1,000 mL (COMPLETED) 1,000 mL, intravenous, Once, On Sun06/17/25 at 2210, 1 dose, Reason for giving less than 30ml/kg actual body weight? Not Sepsis 2210 (New Bag/Syringe - Provider: Rayna Bonilla RN) 0000 (Stopped - Provider: Rayna Bonilla RN) levETIRAcetam (KEPPRA) tablet 500 mg 500 mg, oral, Every 12 hours scheduled, First dose on Sun06/16/25 at 2345, Until Discontinued 010 (Given - Provider: Rayna Bonilla RN)09 (Given - Provider: Leatha Barrett RN)2100 (Not Given - Provider: Rayna Bonilla RN - Reason: Other - See Comment - Comment: Not given d/t pt sleeping in between care. Not following direction even when offered ice cream or applesauce.) 929 (Given - Provider: Robyn Wasserman RN)2100 (Due) levothyroxine (SYNTHROID, LEVOTHROID) tablet 50 mcg 50 mcg, oral, Daily, First dose on Sun06/17/25 at 0900, Until Discontinued 908 (Given - Provider: Leatha Barrett RN) 30 (Given - Provider: Robyn Wasserman, ABBIE) metoprolol tartrate (LOPRESSOR) tablet 12.5 mg 12.5 mg, oral, Every 12 hours scheduled, First dose on Sun06/16/25 at 2345, Until Discontinued 010 (Given - Provider: Rayna Bonilla RN)09 (Given - Provider: Leatha Barrett RN)2100 (Not Given - Provider: Rayna Bonilla RN - Reason: Other - See Comment - Comment: Not given d/t pt sleeping in between care. Not following direction even when offered ice cream or applesauce.) 929 (Given - Provider: Robyn Wasserman RN)2100 (Due) OLANZapine (ZyPREXA) injection 5 mg (COMPLETED) 5 mg, intramuscular, Once, On Sun06/16/25 at 2240, 1 dose, Reconstitute with 2.1 mL of sterile water for injection. Concentration = 5 mg/mL. 2244 (Given - Provider: Rayna Bonilla RN) pantoprazole DR (PROTONIX) tablet 20 mg 20 mg, oral, Daily, First dose on Sun06/17/25 at 0900, Until Discontinued, Do not crush. 908 (Given - Provider: Leatha Barrett RN) 0900 (Not Given - Provider: Robyn Wasserman RN - Reason: Other - See Comment - Comment: unable to crush) predniSONE (DELTASONE) tablet 5 mg 5 mg, oral, Daily, First dose on Sun06/17/25 at 0900, Until Discontinued 907 (Given - Provider: Leatha Barrett RN) 929 (Given - Provider: Robyn Wasserman RN) sodium chloride 0.9% (NS) bolus 1,000 mL (COMPLETED) 1,000 mL, intravenous, Once, On Sun06/18/25 at 0500, 1 dose, Reason for giving less than 30ml/kg actual body weight? Not Sepsis 0500 (New Bag/Syringe - Provider: Rayna Bonilla RN)0930 (Stopped - Provider: Robyn Wasserman RN) valsartan (DIOVAN) tablet 80 mg 80 mg, oral, Daily, First dose on Sun06/17/25 at 0900, Until Discontinued, Hold for SBP less than 100 mmHg. 907 (Given - Provider: Leatha Barrett RN) 929 (Given - Provider: Robyn Wasserman RN) venlafaxine XR (EFFEXOR XR) capsule 150 mg 150 mg, oral, Daily, First dose on Sun06/17/25 at 0900, Until Discontinued, Do not crush. 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
--- OUTSIDE RECORDS SUMMARY | 2025-06-18 19:03 | XMS_ITS | Clinical Summary ---
Author Organization [facility] Address [address] [place] [address] Care Team Providers Care Chemical Mixer Name Role Phone Abhilash Bella MD Primary Care Pr ovider Allergies No known active allergies Medications omeprazole (PriLOSEC) 20 mg capsuleIndicati ons:Laryngophar yngeal reflux (LPR) TAKE 1 CAPSULE BY MOUTH EVERY DAY 30 capsule 1 12/16/2024 Active aspirin 81 mg capsule Take 1 tablet by mouth every 24 hours. Active metoprolol succinate 25 mg capsule,sprinkl e,ER 24hr 12.5 capsules every 24 hours. Active atorvastatin (LIPITOR) 40 mg tablet Take 1 tablet by mouth once a day. Active carbidopa-levod opa (SINEMET) 25-100 mg tablet Take 2 tablets by mouth 3 times a day. Active carbidopa-levod opa ER/CR (SINEMET ER/CR) 25-100 mg tablet Take 1 tablet by mouth daily. 04/14/2025 Active levothyroxine (SYNTHROID, LEVOTHROID) 50 mcg tablet Take 1 tablet by mouth once a day. Active meloxicam (MOBIC) 15 mg tablet Take 15 mg by mouth daily. 05/01/2025 Active levETIRAcetam (KEPPRA) 500 mg tablet Take 500 mg by mouth 2 times daily. 03/31/2025 Active predniSONE (DELTASONE) 2.5 mg tablet Take 5 mg by mouth daily. 04/27/2025 Active Oyster Shell Calcium-Vit D3 500 mg-10 mcg (400 unit) tablet SMARTSI Tablet(s) By Mouth Twice Daily 03/31/2025 Active cyanocobalamin (VITAMIN B12) 1,000 mcg tablet Take 500 mcg by mouth daily. 03/31/2025 Active famotidine (PEPCID) 20 mg tablet Take 20 mg by mouth daily. 03/31/2025 Active gabapentin (NEURONTIN) 100 mg capsule Take 100 mg by mouth 3 times daily. 05/04/2025 Active olmesartan (BENICAR) 20 mg tablet SMARTSI Tablet(s) By Mouth Daily Active venlafaxine XR (EFFEXOR XR) 150 mg capsule Take 1 capsule by mouth once a day. Active amLODIPine (NORVASC) 5 mg tablet Take 0.5 tablets (2.5 mg total) by mouth once a day. 15 tablet 05/08/2025 Active Active Problems Problem Noted Date Diagnosed Date Pain 05/03/2025 Resolved Problems Problem Noted Date Diagnosed Date Resolved Date Unwitnessed fall 05/06/2025 05/08/2025 Fall, initial encounter 05/06/202510/2024 Encounters Date Type Department Care Team Description 06/16/2025 7:24 PM EST - 06/18/2025 5:13 PM EST Emergency [facility] Emergency Department [address] [place] [address] Trent Warner MD Pelis, Megan E, DO Feibish, Gordon, DO Galletta, Gayle M., MD Vacik, Jonathan D, MD Hill, Torrey Oneill MD Discharge Disposition: Short Term/Acute [facility] () 06/15/2025 1:13 PM EST - 06/15/2025 9:31 PM EST Emergency [facility] Emergency Department [address] [place] [address] Gato Harrison MD Gaspari, Romolo J., MD Altered mental status, unspecified altered mental status type (Primary Dx) Discharge Disposition: Retirement Facility (03) 05/26/2025 8:21 AM EDT - 05/26/2025 12:12 PM EDT Emergency [facility] Emergency Department [address] [place] [address] Trent Warner MD Fall, initial encounter (Primary Dx); Contusion of right elbow, initial encounter Discharge Disposition: Home or Self Care (01) 05/08/2025 Lab Requisition [facility] [address] [place] [address] Shanae Hahn NP 05/05/2025 10:26 PM EDT - 05/08/2025 6:42 PM EDT Hospital Encounter [facility] [address] [place] [address] Susan Schwartz MD [place], Chalita Nicole, MD Omer Adam Omer, Mohamed, MD Fall, initial encounter (Primary Dx); Lumbar radiculopathy; Syncope and collapse Discharge Disposition: Inpatient Rehab Facility (IRF) (62) 05/03/2025 9:36 AM EDT - 05/03/2025 2:35 PM EDT Emergency [facility] Emergency Department [address] [place] [address] Luis Angel Sharp MD Sciatica of right side (Primary Dx) Discharge Disposition: Home or Self Care () from Last 3 Months Immunizations Immunization Administration Dates Next Due Influenza, Trivalent, Adjuva nted, PF (FLUAD) 05/08/2025(Deferred: Patient Refused) Social History Tobacco Use Types Packs/Day Years [...] money to get more. Never true 05/06/2025 [facility] Utilities Answer Date Recorded In the past 12 months has e electric, gas, oil, or water [employer] threatened to shut off services in your [...] Orientation Straight 09/17/2023 11 :20 AM EST Last Filed Vital Signs Vital Sign Reading [...] Mass Index 21.21 06/16/2025 8:05 PM EST Plan of Treatment Health Maintenance Due Date Last Done Comments Medicare AWV 1940 Alcohol/Substance Use Screening 08/06/2024 Depression Screening and Follow-Up 08/06/2024 Health Care Proxy Review 08/06/2024 Influenza Vaccine (#1) 2025 , 04/26/2023, 04/26/2023, Additional history exists COVID-19 Vaccine ( season) 2025 11/22/2021, 06/27/2021, 10/19/2020, Additional history exists Social Drivers of Health Annual Screening 05/06/2026 05/06/2025 Basic Metabolic Panel 06/18/2026 06/18/2025 , 06/17/2025, 06/16/2025, Additional history exists Fall Risk Screening 06/18/2026 06/18/2025 DTaP,Tdap,and Td Vaccines (3 - Td or Tdap) 07/28/2032 07/28/2022, 07/28/2022 Osteoporosis Screening Completed , 04/10/2023, 10/13/2021, Additional history exists Pneumococcal Vaccine: 50+ Years Completed 09/10/2023 RSV Vaccine (60+ years old and patients) Completed 09/21/2023 Zoster Vaccines Completed 11/20/2023, 09/21/2023 Hepatitis B Vaccines Aged Out No long er eligible based on patient's age to complete this topic Procedures * Due to [place] state law, this organization might not be sharing negative HIV tests. Procedure Name Priority Date/Time Associated Diagnosis Comments MICROSCOPIC URINALYSIS ONLY STAT 06/18/2025 6:15 AM EST UA/CULTURE REFLEX STAT 06/18/2025 6:1 5 AM EST URINALYSIS W/REFLEX TO MICROSCOPIC & CULTURE STAT 06/18/2025 6:15 AM EST BASIC METABOLIC PANEL STAT 06/18/2025 5:04 AM EST BASIC METABOLIC PANEL STAT 06/17/2025 7:32 AM EST MICROSCOPIC URINALYSIS ONLY Routine 06/17/2025 12:58 AM EST UA/CULTURE REFLEX Routine 06/17/2025 12: 58 AM EST URINALYSIS W/REFLEX TO MICROSCOPIC & CULTURE Routine 06/17/2025 12:[address] HEAD WO CONTRAST STAT 06/16/2025 8 :59 PM EST RAPID COVID-19 RNA FOR SURVEILLANCE (ED ONLY) STAT 06/16/2025 8:41 PM EST BASIC METABOLIC PANEL STAT 06/16/2025 8:41 PM EST CBC AUTO DIFFERENTIAL STAT 06/16/2025 8:41 PM EST MICROSCOPIC URINALYSIS ONLY Routine 06/15/2025 7:34 PM EST UA/CULTURE REFLEX Routine 06/15/2025 7:3 4 PM EST URINALYSIS W/REFLEX TO MICROSCOPIC & CULTURE Routine 06/15/2025 7:34 PM EST COMPREHENSIVE METABOLIC PANEL STAT 06/15/2025 2:46 PM EST CBC AUTO DIFFERENTIAL STAT 06/15/2025 2:46 PM EST XR FOREARM 2 VW RIGHT STAT 05/26/2025 9:32 AM EDT XR ELBOW 3+ VW RIGHT STAT 05/26/2025 9:31 AM EDT XR HUMERUS RIGHT 2+ VW STAT 05/26/2025 9:31 AM EDT XR SHOULDER 2+ VW RIGHT STAT 05/26/2025 9:[address] CERVICAL SPINE WO CONTRAST STAT 05/26/2025 9:[address] HEAD WO CONTRAST STAT 05/26/2025 9 :22 AM EDT BASIC METABOLIC PANEL Routine 05/21/2025 7:10 AM EDT CBC AUTO DIFFERENTIAL Routine 05/21/2025 7:10 AM EDT BASIC METABOLIC PANEL Routine 05/18/2025 7:05 AM EDT CBC AUTO DIFFERENTIAL Routine 05/18/2025 7:05 AM EDT BASIC METABOLIC PANEL Routine 05/14/2025 8:15 AM EDT CBC AUTO DIFFERENTIAL Routine 05/14/2025 8:15 AM EDT BASIC METABOLIC PANEL Routine 05/11/2025 6:05 AM EDT CBC AUTO DIFFERENTIAL Routine 05/11/2025 6:05 AM EDT ALBUMIN Routine 05/09/2025 11:29 AM EDT BASIC METABOLIC PANEL Routine 05/09/2025 11:29 AM EDT CBC AUTO DIFFERENTIAL Routine 05/09/2025 11:29 AM EDT CBC AUTO DIFFERENTIAL Routine 05/08/2025 8:46 AM EDT BASIC METABOLIC PANEL Routine 05/08/2025 8:46 AM EDT MRI LUMBAR SPINE WO CONTRAST STAT 05/07/2025 12:30 PM EDT PHOSPHORUS Routine 05/07/2025 5:15 AM EDT MAGNESIUM Routine 05/07/2025 5:15 AM EDT CBC AUTO DIFFERENTIAL Routine 05/07/2025 5:15 AM EDT BASIC METABOLIC PANEL Routine 05/07/2025 5:15 AM EDT TRANSTHORACIC ECHO (TTE) COMPLETE STAT 05/06/2025 7:49 AM EDT POCT GLUCOSE Routine 05/06/2025 6:31 AM EDT PHOSPHORUS Routine 05/06/2025 4:57 AM EDT MAGNESIUM Routine 05/06/2025 4:57 AM EDT BASIC METABOLIC PANEL Routine 05/06/2025 4:57 AM EDT CBC Routine 05/06/2025 4:57 AM EDT TROPONIN T HIGH SENSITIVITY STAT 05/06/2025 3:14 AM EDT XR HIP RIGHT 2+ VW W PELVIS STAT 05/06/2025 12:[address] CERVICAL SPINE WO CONTRAST STAT 05/06/2025 12:[address] HEAD WO CONTRAST STAT 05/06/2025 1 2:29 AM EDT ECG 12-LEAD STAT 05/05/2025 11:58 PM EDT TROPONIN T HIGH SENSITIVITY STAT Add-on 05/05/2025 11:53 PM EDT MAGNESIUM STAT 05/05/2025 11:53 PM EDT BASIC METABOLIC PANEL STAT 05/05/2025 11:53 PM EDT CBC AUTO DIFFERENTIAL STAT 05/05/2025 11:53 PM EDT MICROSCOPIC URINALYSIS ONLY Routine 05/03/2025 12:44 PM EDT UA/CULTURE REFLEX Routine 05/03/2025 12: 44 PM EDT URINALYSIS W/REFLEX TO MICROSCOPIC & CULTURE Routine 05/03/2025 12:[address] BONY PELVIS W/O CONTRAST STAT 05/03/2025 11:[address] LUMBAR SPINE WO CONTRAST STAT 05/03/2025 11:20 AM EDT from Last 3 Months Results * Due to [place] state law, this organization might not be sharing negative HIV tests. * (ABNORMAL) Microscopic Urinalysis Only (06/18/2025 6:15 AM EST) Only the most recent of4 resultswithin the time period is included. WBC, Urine 3(H) 0 - 2 /HPF [facility] MANUAL 06/18/2025 6:31 AM EST [facility] RBC, Urine 10(H) 0 - 2 /HPF [facility] MANUAL 06/18/2025 6:31 AM EST [facility] Bacteria, Urine Occasiona l(A) None /HPF /HPF [facility] MANUAL 06/18/2025 6:31 AM EST [facility] Hyaline Casts, Urine 5(H) 0 - 2 /LPF [facility] MANUAL 06/18/2025 6:31 AM EST [facility] Squamous Epithelial Cells, Urine 1 /HPF [facility] MANUAL 06/18/2025 6:31 AM EST [facility] Mucus, Urine Many /LPF [facility] MANUAL 06/18/2025 6:31 AM EST [facility] Urine Urine specimen collection, clean catch / Unknown Non-Blood Collection / Unknown 06/18/2025 6:15 AM EST 06/18/2025 6:17 AM EST us Jad cEhols MD LAB URINE ORDERABLES Final R esult [facility] [address] [place] [address], [place] * (ABNORMAL) Urinalysis W/Reflex to Microscopic & Culture (06/18/2025 6:15 AM EST) Only the most recent of4 resultswithin the time period is included. Color, Urine Yellow Colorless, Light Yellow, Yellow, Dark Yellow 06/18/2025 6:21 AM EST [facility] Clarity, Urine Slightly Cloudy(A) Clear 06/18/2025 6:21 AM EST [facility] Specific [place], Urine 1.025 <1.030 06/18/2025 6:21 AM EST [facility] pH, Urine 6.0 5.0 - 8.0 06/18/2025 6:21 AM EST [facility] Protein, Urine Trace(A) Negative 06/18/2025 6:21 AM EST [facility] Glucose, Urine Negative Negative 06/18/2025 6:21 AM EST [facility] Ketones, Urine Negative Negative 06/18/2025 6:21 AM EST [facility] Bilirubin, Urine Negative Negative 06/18/2025 6:21 AM EST [facility] Blood, Urine Trace(A) Negative 06/18/2025 6:21 AM EST [facility] Nitrite, Urine Negative Negative 06/18/2025 6:21 AM EST [facility] Urobilinogen , Urine Normal Normal 06/18/2025 6:21 AM EST [facility] Leukocyte Esterase, Urine Negative Negative 06/18/2025 6:21 AM EST [facility] Urine Urine specimen collection, clean catch / Unknown Non-Blood Collection / Unknown 06/18/2025 6:15 AM EST 06/18/2025 6:17 AM EST [facility] - 06/18/2025 6:21 AM EST Some urinalysis results will not meet the criteria for reflex urine culture although certain urine values may be abnormal. Additional testing can be ordered by the provider if clinically warranted. us Jad Echols MD LAB URINE ORDERABLES Final R esult [facility] [address] [place] [address], [place] * (ABNORMAL) BMP - Basic Metabolic Panel (06/18/2025 5:04 AM EST) Only the most recent of12 resultswithin the time period is included. NA 146(H) 135 - 145 mmol/L 06/18/2025 5:57 AM EST [facility] K 3.8 3.5 - 5.3 mmol/L 06/18/2025 5:57 AM EST [facility] Cl 108 97 - 110 mmol/L 06/18/2025 5:57 AM EST [facility] CO2 31 22 - 32 mmol/L 06/18/2025 5:57 AM EST [facility] BUN 29(H) 7 - 23 mg/dL 06/18/2025 5:57 AM EST [facility] Creatinine 0.83 0.50 - 1.20 mg/dL 06/18/2025 5:57 AM EST [facility] Glucose 84 65 - 99 mg/dL 06/18/2025 5:57 AM EST [facility] Calcium 9.4 8.6 - 10.5 mg/dL 06/18/2025 5:57 AM EST [facility] Anion Gap 7 5 - 15 06/18/2025 5:57 AM EST [facility] eGFR 69 >=60 mL/min/1 .73m2 06/18/2025 5:57 AM EST [facility] Comment:The estimated glomer ular filtration rate (eGFR) is calculated using a new formula developed by the NKF-ASN task force to eliminate race-based correction factors. The new formula uses serum/plasma creatinine, age, and gender to determine eGFR. A value below 60mls/min might indicate kidney disease and will be flagged. For additional information, see Rowdy zuniga al, Am J Kidney Dis. 2021;79(2):268- 288, A Unifying Approach for GFR estimation: Recommendations of the NKF-ASN Task Force on Reassessing the Inclusion of Race in Diagnosing Kidney Disease . Blood Structure of peripheral vein / Unknown Venipuncture / Unknown 06/18/2025 5:04 AM EST 06/18/2025 5:21 AM EST us Jad Echols MD LAB BLOOD ORDERABLES Final R esult [facility] [address] [place] [address], [place] * CT Head WO Contrast (06/16/2025 8:59 PM EST) Only the most recent of3 resultswithin the time period is included. Anatomical Region Laterality Modality Head and Neck Computed Tomogra phy 06/16/2025 9:01 PM EST Impressions 06/16/2025 9:02 PM EST No acute intracranial abnormality. If this radiology report contains a blank impression section, it is an incomplete radiology report. Please contact the interpreting radiologist or applicable radiology division as soon as possible to obtain the completed interpretation. Workstation ID: [id number] Narrative 06/16/2025 9:02 PM EST COMPARISON: 05/26/2025. [...] lesion or air-fluid levels. Resulting Agency Comment [id number] Procedure Note Danielito Lindquist MD - 06/16/2025 [...] possible to obtain thecompleted interpretation. Workstation ID: [id number] us Trent Warner MD IMG CT PROCEDURES Final Result * Rapid COVID-19 for Surveillance - Psych/Admission (06/16/2025 8:41 PM EST) Pathologist [facility] PCR, SARS CoV-2 RNA Not Detected Not Detected CEPHEID GENEXPERT 06/16/2025 9:23 PM EST [facility] Comment:A Not Detected (Nega tive) test [...] PM EST 06/16/2025 8:49 PM EST Narrative [facility] - 06/16/2025 9:23 PM EST This test was developed, validated and its performance characteristics determined by [facility] Clinical Labs. This test has not been cleared or approved by the U.S. Food and Drug Administration (FDA). FDA Policy for Diagnostic Tests for Coronavirus Disease-2019 during the Public Health Emergency issued October 20, 2019, is followed. us Trent Warner MD LAB BODY FLUIDS AND STOOLS ORD ERABLES Final Result [facility] [address] [place] [address], [place] * (ABNORMAL) CBC Auto Differential (06/16/2025 8:41 PM EST) Only the most recent of10 resultswithin the time period is included. [facility] WBC 9.0 3.8 - 10.8 10*3/uL 06/16/2025 [...] 06/16/2025 8:53 PM EST [facility] MPV 11.0 7.5 - 12.5 fL [...] 06/16/2025 8:53 PM EST [facility] Eosinophil % 0.0 % 06/16/2025 8:53 PM EST [facility] Basophil % 0.2 % 06/16/2025 8:53 PM EST [facility] Neutrophil # 7.68 1.50 - 7.80 10*3/uL 06/16/2025 8:53 PM EST [facility] Immature Grans # <0.03 <=0.03 10*3/uL 06/16/2025 8:53 PM EST [facility] Lymphocyte # 0.80(L) 0.85 - 3.90 10*3/uL 06/16/2025 8:53 PM EST [facility] Monocyte # 0.50 0.20 - 0.95 10*3/uL 06/16/2025 8:53 PM EST [facility] Eosinophil # <0.03 0.02 - 0.50 10*3/uL 06/16/2025 8:53 PM EST [facility] Basophil # <0.03 0.00 - 0.20 10*3/uL 06/16/2025 8:53 PM EST [facility] nRBC % 0.0 /100 WBCs 06/16/2025 8:53 PM EST [facility] nRBC # <0.01 <0.01 10*3/uL 06/16/2025 8:53 PM EST [facility] Blood Structure of peripheral vein / Unknown Venipuncture / Unknown 06/16/2025 8:41 PM EST 06/16/2025 8:49 PM EST us Trent Warner MD LAB BLOOD ORDERABLES Final Res ult [facility] [address] [place] [address], * (ABNORMAL) CMP - Comprehensive Metabolic Panel (06/15/2025 2:46 PM EST) NA 141 135 - 145 mmol/L 06/15/2025 3:40 PM EST [facility] K 3.3(L) 3.5 - 5.3 mmol/L 06/15/2025 3:40 PM EST [facility] Cl 100 97 - 110 mmol/L 06/15/2025 3:40 PM EST [facility] CO2 29 22 - 32 mmol/L 06/15/2025 3:40 PM EST [facility] Anion Gap 12 5 - 15 06/15/2025 3:40 PM EST [facility] Glucose 142(H) 65 - 99 mg/dL 06/15/2025 3:40 PM EST [facility] Creatinine 0.83 0.50 - 1.20 mg/dL 06/15/2025 3:40 PM EST [facility] Calcium 10.0 8.6 - 10.5 mg/dL 06/15/2025 3:40 PM EST [facility] Total Protein 6.9 6.0 - 8.0 g/dL 06/15/2025 3:40 PM EST [facility] Albumin 4.4 3.5 - 5.2 g/dL 06/15/2025 3:40 PM EST [facility] Bilirubin, Total 0.5 0.2 - 1.2 mg/dL 06/15/2025 3:40 PM EST [facility] Alkaline Phosphatase 77 35 - 129 U/L 06/15/2025 3:40 PM EST [facility] AST 24 10 - 40 U/L 06/15/2025 3:40 PM EST [facility] ALT 15 10 - 40 U/L 06/15/2025 3:40 PM EST [facility] BUN 25(H) 7 - 23 mg/dL 06/15/2025 3:40 PM EST [facility] eGFR 69 >=60 mL/min/1 .73m2 06/15/2025 3:40 PM EST [facility] Comment:The estimated glomer ular [...] - 4.2 g/dL 06/15/2025 3:40 PM EST [facility] A/G Ratio 1.8 1.5 - 3.0 06/15/2025 3:40 PM EST [facility] Blood Structure of peripheral vein / Unknown Venipuncture / Unknown 06/15/2025 2:46 PM EST 06/15/2025 3:06 PM EST us Gato Harrison MD LAB BLOOD ORDERABLES Final Res ult [facility] [address] [place] [address], * XR Forearm 2 vw Right (05/26/2025 9:32 AM EDT) Anatomical Region Laterality Modality Upper Extremities, Forearm Right Compu eri Radiography 05/26/2025 10:4 2 AM EDT Impressions 05/26/2025 10:45 AM EDT No evidence of an acute fracture or traumatic malalignment. If this radiology report contains a blank impression section, it is an incomplete radiology report. Please contact the interpreting radiologist or applicable radiology division as soon as possible to obtain the completed interpretation. Workstation ID: [id number] Narrative 05/26/2025 10:45 AM EDT REASON FOR EXAM: Fall COMPARISON: None: FINDINGS: The bones appear demineralized. There is no evidence of an acute fracture or traumatic malalignment involving the shoulder, humerus, elbow, or forearm. There is an old healed fracture deformity of the proximal humerus. 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 No appreciable elbow joint effusion. Mild osteoarthritis throughout the wrist. Resulting Agency Comment [id number] Procedure Note Fredi Bray MD - 05/26/2025 REASON FOR EXAM: Fall COMPARISON: None: FINDINGS: The bones appear demineralized. There is no evidence of an acute fractureor traumatic malalignment involving the shoulder, humerus, elbow, orforearm. There is an old healed fracture deformity of the proximalhumerus. There is moderate acromioclavicular and glenohumeralosteoarthritis. 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 No appreciable elbowjoint effusion. Mild osteoarthritis throughout the wrist. IMPRESSION: No evidence of an acute fracture or traumatic malalignment. If this radiology report contains a blank impression section, it is anincomplete radiology report. Please contact the interpreting radiologistor applicable radiology division as soon as possible to obtain thecompleted interpretation. Workstation ID: [id number] us Trent Warner MD IMG XR PROCEDURES Final Result * XR Elbow 3+ vw Right (05/26/2025 9:31 AM EDT) Anatomical Region Laterality Modality Upper Extremities, Elbow Right Compute d Radiography 05/26/2025 10:4 2 AM EDT Impressions 05/26/2025 10:45 AM EDT No evidence of an acute fracture or traumatic malalignment. If this radiology report contains a blank impression section, it is an incomplete radiology report. Please contact the interpreting radiologist or applicable radiology division as soon as possible to obtain the completed interpretation. Workstation ID: [id number] Narrative 05/26/2025 10:45 AM EDT REASON FOR EXAM: Fall COMPARISON: None: FINDINGS: The bones appear demineralized. There is no evidence of an acute fracture or traumatic malalignment involving the shoulder, humerus, elbow, or forearm. There is an old healed fracture deformity of the proximal humerus. 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 No appreciable elbow joint effusion. Mild osteoarthritis throughout the wrist. Resulting Agency Comment [id number] Procedure Note Fredi Bray MD - 05/26/2025 REASON FOR EXAM: Fall COMPARISON: None: FINDINGS: The bones appear demineralized. There is no evidence of an acute fractureor traumatic malalignment involving the shoulder, humerus, elbow, orforearm. There is an old healed fracture deformity of the proximalhumerus. There is moderate acromioclavicular and glenohumeralosteoarthritis. 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 No appreciable elbowjoint effusion. Mild osteoarthritis throughout the wrist. IMPRESSION: No evidence of an acute fracture or traumatic malalignment. If this radiology report contains a blank impression section, it is anincomplete radiology report. Please contact the interpreting radiologistor applicable radiology division as soon as possible to obtain thecompleted interpretation. Workstation ID: [id number] us Trent Warner MD IMG XR PROCEDURES Final Result * XR Humerus Right 2+ View (05/26/2025 9:31 AM EDT) Anatomical Region Laterality Modality Upper Extremities, Humerus Right Compu eri Radiography 05/26/2025 10:4 2 AM EDT Impressions 05/26/2025 10:45 AM EDT No evidence of an acute fracture or traumatic malalignment. If this radiology report contains a blank impression section, it is an incomplete radiology report. Please contact the interpreting radiologist or applicable radiology division as soon as possible to obtain the completed interpretation. Workstation ID: [id number] Narrative 05/26/2025 10:45 AM EDT REASON FOR EXAM: Fall COMPARISON: None: FINDINGS: The bones appear demineralized. There is no evidence of an acute fracture or traumatic malalignment involving the shoulder, humerus, elbow, or forearm. There is an old healed fracture deformity of the proximal humerus. 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 No appreciable elbow joint effusion. Mild osteoarthritis throughout the wrist. Resulting Agency Comment [id number] Procedure Note Fredi Bray MD - 05/26/2025 REASON FOR EXAM: Fall COMPARISON: None: FINDINGS: The bones appear demineralized. There is no evidence of an acute fractureor traumatic malalignment involving the shoulder, humerus, elbow, orforearm. There is an old healed fracture deformity of the proximalhumerus. There is moderate acromioclavicular and glenohumeralosteoarthritis. 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 No appreciable elbowjoint effusion. Mild osteoarthritis throughout the wrist. IMPRESSION: No evidence of an acute fracture or traumatic malalignment. If this radiology report contains a blank impression section, it is anincomplete radiology report. Please contact the interpreting radiologistor applicable radiology division as soon as possible to obtain thecompleted interpretation. Workstation ID: [id number] us Trent Warner MD IMG XR PROCEDURES Final Result * XR Shoulder 2+ vw Right (05/26/2025 9:31 AM EDT) Anatomical Region Laterality Modality Upper Extremities, Shoulder Right Comp uted Radiography 05/26/2025 10:4 2 AM EDT Impressions 05/26/2025 10:45 AM EDT No evidence of an acute fracture or traumatic malalignment. If this radiology report contains a blank impression section, it is an incomplete radiology report. Please contact the interpreting radiologist or applicable radiology division as soon as possible to obtain the completed interpretation. Workstation ID: [id number] Narrative 05/26/2025 10:45 AM EDT REASON FOR EXAM: Fall COMPARISON: None: FINDINGS: The bones appear demineralized. There is no evidence of an acute fracture or traumatic malalignment involving the shoulder, humerus, elbow, or forearm. There is an old healed fracture deformity of the proximal humerus. 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 No appreciable elbow joint effusion. Mild osteoarthritis throughout the wrist. Resulting Agency Comment [id number] Procedure Note Fredi Bray MD - 05/26/2025 REASON FOR EXAM: Fall COMPARISON: None: FINDINGS: The bones appear demineralized. There is no evidence of an acute fractureor traumatic malalignment involving the shoulder, humerus, elbow, orforearm. There is an old healed fracture deformity of the proximalhumerus. There is moderate acromioclavicular and glenohumeralosteoarthritis. 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 No appreciable elbowjoint effusion. Mild osteoarthritis throughout the wrist. IMPRESSION: No evidence of an acute fracture or traumatic malalignment. If this radiology report contains a blank impression section, it is anincomplete radiology report. Please contact the interpreting radiologistor applicable radiology division as soon as possible to obtain thecompleted interpretation. Workstation ID: [id number] us Trent Warner MD IMG XR PROCEDURES Final Result * CT C-Spine WO Contrast (05/26/2025 9:22 AM EDT) Only the most recent of2 resultswithin the time period is included. Anatomical Region Laterality Modality Spine, C-spine Computed Tomogra phy 05/26/2025 9:26 AM EDT Impressions 05/26/2025 9:57 AM EDT 1. No evidence of acute intracranial abnormality or acute displaced calvarial fracture. 2. No evidence of acute traumatic cervical spine abnormality. INick, have reviewed the examination and concur with the findings as reported or so edited. Trainee: Sami Whipple If this radiology report contains a blank impression section, it is an incomplete radiology report. Please contact the interpreting radiologist or applicable radiology division as soon as possible to obtain the completed interpretation. Workstation ID: [id number] Narrative 05/26/2025 9:57 AM EDT EXAMINATION: CT of head without contrast. CT of the cervical spine without contrast. TECHNIQUE: CT of the head performed without intravenous contrast. Multiplanar reformats and 3D volume-rendered reconstructions were generated at the acquisition workstation, for the head. CT of the cervical spine without intravenous contrast. COMPARISON: CT head and cervical spine without contrast 05/06/2025. FINDINGS: CT HEAD: There is no evidence of acute intracranial hemorrhage or large territorial infarction. Subcortical and periventricular white matter hypodensities compatible with chronic microangiopathy. There is no mass, mass-effect, midline shift, or extra-axial collection. The ventricles and extra-axial CSF spaces are normal in size and configuration for patient age. No acute calvarial fracture. The included facial bones are intact. The included paranasal sinuses are essentially clear. The mastoid air cells are clear. The orbits are intact and symmetric with lens replacements. CT CERVICAL SPINE: No acute fracture or traumatic malalignment. Cervical vertebral body heights are maintained. Mild multilevel multifactorial degenerative changes. No high-grade osseous spinal canal or osseous neuroforaminal stenosis. No large mass or fluid collection in the prevertebral and paravertebral soft tissues. No obvious lymphadenopathy. The thyroid gland is unremarkable. Mild biapical scarring of the included lung apices. Included portions of the airways are clear. Resulting Agency Comment [id number] Procedure Note Nick Palomino MD - 05/26/2025 EXAMINATION: CT of head without contrast. CT of the cervical spine without contrast. TECHNIQUE: CT of the head performed without intravenous contrast. Multiplanarreformats and 3D volume-rendered reconstructions were generated at the[employer] workstation, for the head. CT of the cervical spine without intravenous contrast. COMPARISON: CT head and cervical spine without contrast 05/06/2025. FINDINGS: CT HEAD: There is no evidence of acute intracranial hemorrhage or large territorialinfarction. Subcortical and periventricular white matter hypodensitiescompatible with chronic microangiopathy. There is no mass, mass-effect, midline shift, or extra-axial collection. The ventricles and extra-axial CSF spaces are normal in size andconfiguration for patient age. No acute calvarial fracture. The included facial bones are intact. Theincluded paranasal sinuses are essentially clear. The mastoid air cellsare clear. The orbits are intact and symmetric with lens replacements. CT CERVICAL SPINE: No acute fracture or traumatic malalignment. Cervical vertebral bodyheights are maintained. Mild multilevel multifactorial degenerativechanges. No high-grade osseous spinal canal or osseous neuroforaminalstenosis. No large mass or fluid collection in the prevertebral and paravertebralsoft tissues. No obvious lymphadenopathy. The thyroid gland isunremarkable. Mild biapical scarring of the included lung apices. Includedportions of the airways are clear. IMPRESSION: 1. No evidence of acute intracranial abnormality or acute displacedcalvarial fracture. 2. No evidence of acute traumatic cervical spine abnormality. I, Nick Palomino, have reviewed the examination and concur with thefindings as reported or so edited. Trainee: Sami Whipple If this radiology report contains a blank impression section, it is anincomplete radiology report. Please contact the interpreting radiologistor applicable radiology division as soon as possible to obtain thecompleted interpretation. Workstation ID: [id number] us Trent Warner MD IMG CT PROCEDURES Final Result * Albumin (05/09/2025 11:29 AM EDT) Albumin 4.4 3.5 - 5.0 g/dL 05/09/2025 1:40 PM EDT [facility] Blood Structure of peripheral vein / Unknown Venipuncture / Unknown 05/09/2025 11:29 AM EDT 05/09/2025 11:29 AM EDT Narrative [facility] - 05/09/2025 1:40 PM EDT NUR1\S\103\S\A\S\0156\S\S\BED\S\0156 NUR1\S\103\S\A\S\0156\S\S\BED\S\0156 Shanae Hahn NP LAB BLOOD ORDERABLES Final Resul t [facility] [address] [place] [address] [address] [place] [address], * MRI Lumbar Spine without Contrast (05/07/2025 12:30 PM EDT) Anatomical Region Laterality Modality Spine, L-spine Magnetic Resonan ce 05/07/2025 11:5 0 AM EDT Impressions 05/07/2025 11:06 PM EDT 1. 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 It is most notable at L2-3 where there is a right subarticular disc protrusion, migration. 2. No evidence of acute compression fracture or suspicious intraosseous lesion. If this radiology report contains a blank impression section, it is an incomplete radiology report. Please contact the interpreting radiologist or applicable radiology division as soon as possible to obtain the completed interpretation. Workstation ID: [id number] Narrative 05/07/2025 11:06 PM EDT EXAMINATION: MRI of lumbar spine without contrast TECHNIQUE: Multiplanar and multisequence MR imaging of lumbar spine performed at high magnetic field strength without contrast per department protocol. CLINICAL HISTORY: Lumbar radiculopathy, no red flags, no prior management. COMPARISON: CT 05/03/2025 FINDINGS: Limitations of the exam include the following: * No diagnostic coronal sequence. * No axial fluid sensitive sequence. Within limitations: Numbering: This report assumes five nonrib-bearing lumbar-type vertebrae. L5 is identified by the iliolumbar ligament and lumbosacral angle. Consistent numbering compared previous CT. Postsurgical: None appreciated. Alignment: Anatomic. Bones: Vertebral body heights are within normal limits. Age-appropriate marrow signal. No suspicious intramedullary lesion. Endplate degenerative irregularity throughout the lumbar spine is Modic 2 endplate marrow changes most prominent at L4-5. Interspinous hypertrophy with facet and throughout the lumbar spine which can be seen with Baastrop's. Developmental stenosis: Absent. Sacroiliac joints: Incompletely imaged. Mild bilateral degenerative arthropathy. Nerves: The conus medullaris terminates at T12. The visualized spinal cord signal is intact. T11-T12: Imaged on sagittal sequences only. Disc desiccation and disc space height loss. No significant spinal canal or neuroforaminal stenosis. T12-L1: Imaged on sagittal sequences only. Disc desiccation and disc space height loss. No significant spinal canal or neuroforaminal stenosis. L1-L2: Intervertebral disc: Disc desiccation mild height loss. Circumferential disc bulge Facet joints: Mild bilateral facet degenerative arthropathy ligament flavum thickening Spinal canal: No stenosis. Neuroforamina: Mild bilateral narrowing. L2-L3: Intervertebral disc: Disc desiccation moderate height loss. Sequential disc bulge with anterior lateral disc osteophyte. Superimposed small right subarticular protrusion with 5 mm caudal migration to the L3 pedicular level. Facet joints: Mild left greater than right degenerative arthropathy Spinal canal: Mild central stenosis. Effacement of the right lateral recess with encroachment on the coursing right L3 nerve root. Neuroforamina: Moderate right and mild left narrowing. L3-L4: Intervertebral disc: Disc desiccation moderate height loss. Diffuse disc bulge. Small left paracentral disc protrusion. Facet joints: Mild bilateral facet degenerative arthropathy. Spinal canal: No stenosis. Neuroforamina: Moderate right and mild left narrowing. L4-L5: Intervertebral disc: Disc desiccation. Moderate height loss. Sequential disc bulge. Facet joints: Mild bilateral degenerative arthropathy. Spinal canal: No stenosis. Neuroforamina: Moderate bilateral narrowing. L5-S1: Intervertebral disc: Disc desiccation moderate height loss. Sequential disc bulge. Facet joints: Moderate bilateral degenerative arthropathy. Spinal canal: No stenosis. Neuroforamina: Moderate right and severe left narrowing. Abdomen/Retroperitoneum: Partially imaged structures are unremarkable in appearance. Paraspinal muscles and soft tissues: Moderate bilateral fatty muscle atrophy. Resulting Agency Comment [id number] Procedure Note Lucas Shipley, DO - 05/07/2025 EXAMINATION: MRI of lumbar spine without contrast TECHNIQUE: Multiplanar and multisequence MR imaging of lumbar spine performed at highmagnetic field strength without contrast per department protocol. CLINICAL HISTORY: Lumbar radiculopathy, no red flags, no prior management. COMPARISON: CT 05/03/2025 FINDINGS: Limitations of the exam include the following: * No diagnostic coronal sequence. * No axial fluid sensitive sequence. Within limitations: Numbering: This report assumes five nonrib-bearing lumbar-type vertebrae.L5 is identified by the iliolumbar ligament and lumbosacral angle.Consistent numbering compared previous CT. Postsurgical: None appreciated. Alignment: Anatomic. Bones: Vertebral body heights are within normal limits. Age-appropriatemarrow signal. No suspicious intramedullary lesion. Endplate degenerativeirregularity throughout the lumbar spine is Modic 2 endplate marrowchanges most prominent at L4-5. Interspinous hypertrophy with facet andthroughout the lumbar spine which can be seen with Baastrop's. Developmental stenosis: Absent. Sacroiliac joints: Incompletely imaged. Mild bilateral degenerativearthropathy. Nerves: The conus medullaris terminates at T12. The visualized spinalcord signal is intact. T11-T12: Imaged on sagittal sequences only. Disc desiccation and disc space heightloss. No significant spinal canal or neuroforaminal stenosis. T12-L1: Imaged on sagittal sequences only. Disc desiccation and disc space heightloss. No significant spinal canal or neuroforaminal stenosis. L1-L2: Intervertebral disc: Disc desiccation mild height loss. Circumferentialdisc bulge Facet joints: Mild bilateral facet degenerative arthropathy ligamentflavum thickening Spinal canal: No stenosis. Neuroforamina: Mild bilateral narrowing. L2-L3: Intervertebral disc: Disc desiccation moderate height loss. Sequentialdisc bulge with anterior lateral disc osteophyte. Superimposed small rightsubarticular protrusion with 5 mm caudal migration to the L3 pedicularlevel. Facet joints: Mild left greater than right degenerative arthropathy Spinal canal: Mild central stenosis. Effacement of the right lateralrecess with encroachment on the coursing right L3 nerve root. Neuroforamina: Moderate right and mild left narrowing. L3-L4: Intervertebral disc: Disc desiccation moderate height loss. Diffuse discbulge. Small left paracentral disc protrusion. Facet joints: Mild bilateral facet degenerative arthropathy. Spinal canal: No stenosis. Neuroforamina: Moderate right and mild left narrowing. L4-L5: Intervertebral disc: Disc desiccation. Moderate height loss. Sequentialdisc bulge. Facet joints: Mild bilateral degenerative arthropathy. Spinal canal: No stenosis. Neuroforamina: Moderate bilateral narrowing. L5-S1: Intervertebral disc: Disc desiccation moderate height loss. Sequentialdisc bulge. Facet joints: Moderate bilateral degenerative arthropathy. Spinal canal: No stenosis. Neuroforamina: Moderate right and severe left narrowing. Abdomen/Retroperitoneum: Partially imaged structures are unremarkable inappearance. Paraspinal muscles and soft tissues: Moderate bilateral fatty muscleatrophy. IMPRESSION: 1. Multilevel multifactorial degenerative changes of the lumbar spinewith very degrees of spinal canal stenosis and foraminal narrowing asdetailed above. It is most notable at L2-3 where there is a rightsubarticular disc protrusion, migration. 2. No evidence of acute compression fracture or suspicious intraosseouslesion. If this radiology report contains a blank impression section, it is anincomplete radiology report. Please contact the interpreting radiologistor applicable radiology division as soon as possible to obtain thecompleted interpretation. Workstation ID: [id number] Soo Newberry MD IMG MRI PROCEDURES Fin al Result * Phosphorus (05/07/2025 5:15 AM EDT) Only the most recent of2 resultswithin the time period is included. Phosphorus 3.5 2.5 - 4.5 mg/dL 05/07/2025 5:55 AM EDT [facility] Blood Structure of peripheral vein / Unknown Venipuncture / Unknown 05/07/2025 5:15 AM EDT 05/07/2025 5:17 AM EDT Soo Newberry MD LAB BLOOD ORDERABLES F inal Result Performing Organization Address [facility] de Phone Number [facility] [address] [place] [address], * Magnesium (05/07/2025 5:15 AM EDT) Only the most recent of3 resultswithin the time period is included. MG 2.1 1.6 - 2.4 mg/dL 05/07/2025 5:55 AM EDT [facility] Blood Structure of peripheral vein / Unknown Venipuncture / Unknown 05/07/2025 5:15 AM EDT 05/07/2025 5:17 AM EDT Soo Newberry MD LAB BLOOD ORDERABLES F inal Result Performing Organization Address [facility] [place] [address], * TRANSTHORACIC ECHO (TTE) COMPLETE (05/06/2025 7:49 AM EDT) BSA 1.42 m2 LVIDD 4.2 cm LVIDS 2.7 cm IVS 0.8 cm LVOT diameter 1.9 cm LVOT area 2.83 cm2 Relative Wall Thickness 0.37 PW 0.8 cm LV Mass Index 72 g/m2 MV Peak E Barney 0.64 m/s MV avg E/e' 10.19 MV Peak A Barney 1.00 m/s TR pk barney 2.4 m/s E/A ratio 0.60 Lateral e' 0.07 m/s E wave deceleration time 214.8 msec Septal e' 0.06 m/s MV E/E' Tissue Velocity Lateral 9.47 LA Volume Index 49 mL/m2 MV E/e' septal 11.04 LA volume 65 mL LVOT peak barney 0.83 m/s LVOT stroke volume 58 cm3 LV stroke vol index 41.1 mL/m2 RV diastolic basal diam 3.1 cm TAPSE 2.1 cm LA size 2.8 cm RA 2D single-plane vol 36 mL RA vol index 25.30 mL/m2 AV peak gradient 6 mmHg Ao peak barney 1.2 m/s LVOT peak VTI 20.74 cm AV area pk barney 1.9 cm2 AV Doppler barney index pk barney 0.67 TR PEAK GRAD 23.0 mmHg Sinus 2.9 cm Ascending aorta 2.7 cm Aortic Root Z-score -0.35 Ao-asc Z score -0.72 IVC proximal 1.8 cm Dummy BSA 1.41 LV ED Post Wall 0.80 LV ES Dimension 2.70 LV ED Dimension 4.20 Aortic Valve Diam 1.9 cm EF 2D 68 % TV est pulmonary artery pressure 26 mmHg RIGHT ATRIAL PRESSURE 3 mmHg Estimated r vent sys pressure by tricuspid regurg jet 26 mmHg Anatomical Region Laterality Modality Heart Echocardiography Narrative 05/06/2025 1:03 PM EDT 1. Normal biventricular size and systolic function. 2. Dilated left atrium. 3. No hemodynamically significant valvular disease. No prior echocardiogram report available. Left Ventricle The left ventricle size is normal. Normal left ventricular wall thickness. Left ventricular mass index is normal. Normal left ventricular wall motion. Normal left ventricular systolic function with estimated LVEF 68%. Unable to assess left ventricular diastolic function due to conflicting data. Right Ventricle Right ventricle size is normal. Normal right ventricular systolic function. TAPSE is normal (>=1.7 cm). Tissue Doppler peak systolic velocity is normal (>9.5 cm/s). TAPSE is 2.1 cm. Left Atrium Left atrium is severely dilated. Left atrium volume index is 49 mL/m2. Right Atrium Right atrium is normal in size. IVC/SVC IVC diameter is less than or equal to 21 mm and decreases greater than 50% during inspiration; therefore the estimated right atrial pressure is normal (~3 mmHg). Mitral Valve Mildly thickened mitral leaflets. Mild mitral annular calcification. Trace mitral regurgitation. No mitral stenosis. Tricuspid Valve Tricuspid valve structure is normal. Mild tricuspid regurgitation. No tricuspid stenosis. Aortic Valve There is a trileaflet aortic valve. Mild aortic valve cusp thickening. [id number] aortic regurgitation. No aortic stenosis. Pulmonic Valve No pulmonic regurgitation. No pulmonic stenosis. Ascending Aorta The sinuses of Valsalva and ascending aorta are normal. Pericardium No pericardial effusion. Pulmonary Artery Pulmonary artery systolic pressure is normal. Estimated pulmonary artery pressure is 26 mmHg. Atrial Septum No interatrial shunt detected by color flow Doppler. Ventricular Septum Ventricular septum is intact. Study Details A complete echo was performed using 2D imaging, color flow Doppler and complete spectral Doppler. Overall the study quality was adequate. The study was technically difficult. Wall Scoring Baseline Score Index: 1.00 The left ventricular wall motion is normal. Jose Case MD CV ECHO PROCEDURES Final Result * POCT Glucose, interfaced (05/06/2025 6:31 AM EDT) [facility] Glucose, POCT 83 70 - 99 mg/dL 05/06/2025 6:43 AM EDT [facility] Comment:Glucometer point of care testing platforms using capillary blood are not approved for use in critically ill patients. Blood 05/06/2025 6:31 AM EDT 05/06/2025 6:43 AM EDT Jose Case MD LAB POCT ORDERABLES - DEVICE Final Result [facility] [address] [place] [address], * CBC (05/06/2025 4:57 AM EDT) WBC 7.2 3.8 - 10.8 10*3/uL 05/06/2025 5:16 AM EDT [facility] RBC 4.10 3.80 - 5.10 10*6/uL 05/06/2025 5:16 AM EDT [facility] Hemoglobin 12.0 11.7 - 15.5 g/dL 05/06/2025 5:16 AM EDT [facility] Hematocrit 36.4 35.0 - 45.0 % 05/06/2025 5:16 AM EDT [facility] MCV 88.8 80.0 - 100.0 fL 05/06/2025 5:16 AM EDT [facility] MCH 29.3 27.0 - 33.0 pg 05/06/2025 5:16 AM EDT [facility] MCHC 33.0 32.0 - 36.0 g/dL 05/06/2025 5:16 AM EDT [facility] RDW 14.0 11.0 - 15.0 % 05/06/2025 5:16 AM EDT [facility] Platelets 268 140 - 400 10*3/uL 05/06/2025 5:16 AM EDT [facility] MPV 10.1 7.5 - 12.5 fL 05/06/2025 5:16 AM EDT [facility] Blood Structure of peripheral vein / Unknown Venipuncture / Unknown 05/06/2025 4:57 AM EDT 05/06/2025 4:59 AM EDT us Jose Case MD LAB BLOOD ORDERABLE S Final Result [facility] [address] [place] [address], [place] * (ABNORMAL) Repeat Troponin #1 (05/06/2025 3:14 AM EDT) Only the most recent of2 resultswithin the time period is included. Troponin T High Sensitivity 17(H) <=13 ng/L 05/06/2025 4:01 AM EDT [facility] Comment: Gp-Btvellro-O level of 52 ng/L or higher at 0-hour at presentation is recommended by the ESC 0/1-hour algorithm for identifying patients at high risk for ruling in acute myocardial infarction (AMI) in the appropriate clinical context. Repeat troponin testing 1-3 hours after the initial sample may be helpful in assessing for ongoing myocardial injury. Troponin elevations can be seen in several other non-infarct conditions, and the change (delta) should be evaluated in line with the 4th [place] Definition of AMI. Troponin baseline and serial elevation for a significant delta should be interpreted with clinical presentation, history, signs and symptoms, ECG, and biomarker concentrations. For inpatient setting: Value <12ng/L is considered negative for all genders. 0-1hr: A delta change of <3 will be considered negative/flat if chest pain onset >3 hours 0-3hr: A delta change of <7 will be considered negative/flat Blood Structure of peripheral vein / Unknown Venipuncture / Unknown 05/06/2025 3:14 AM EDT 05/06/2025 3:34 AM EDT us Susan Schwartz MD LAB BLOOD ORDERABLES Final Resul t [facility] [address] [place] [address], [place] * XR Hip Right 2+ vw W Pelvis (05/06/2025 12:36 AM EDT) Anatomical Region Laterality Modality Body, Pelvis, Hip Right Computed Radio graphy 05/06/2025 12:3 9 AM EDT Impressions 05/06/2025 12:40 AM EDT No acute traumatic injury to the pelvis or right hip. If this radiology report contains a blank impression section, it is an incomplete radiology report. Please contact the interpreting radiologist or applicable radiology division as soon as possible to obtain the completed interpretation. Workstation ID: [id number] Narrative 05/06/2025 12:40 AM EDT COMPARISON: 05/03/2025. FINDINGS: The cortical margins of the pelvis and sacrum are intact. The femoral heads are congruent with their respective acetabula. Resulting Agency Comment [id number] Procedure Note Danielito Lindquist MD - 05/06/2025 COMPARISON: 05/03/2025. FINDINGS: The cortical margins of the pelvis and sacrum are intact. The femoralheads are congruent with their respective acetabula. IMPRESSION: No acute traumatic injury to the pelvis or right hip. If this radiology report contains a blank impression section, it is anincomplete radiology report. Please contact the interpreting radiologistor applicable radiology division as soon as possible to obtain thecompleted interpretation. Workstation ID: [id number] Susan Schwartz MD IMG XR PROCEDURES Final Result * ECG 12 lead (05/05/2025 11:58 PM EDT) Ventricular Rate EKG 71 BPM MUSE EKG Atrial Rate 71 BPM MUSE EKG FL Interval 170 ms MUSE EKG QRS Interval 92 ms MUSE EKG QT Interval 396 ms MUSE EKG QTC Interval 430 ms MUSE EKG P [place] 79 degrees MUSE EKG R [place] 44 degrees MUSE EKG T Wave [place] 69 degrees MUSE EKG 05/05/2025 11:5 8 PM EDT 05/08/2025 6:48 PM EDT Impressions MUSE EKG - 05/08/2025 6:48 PM EDT Normal sinus rhythm Minimal voltage criteria for LVH, may be normal variant ( Sokolow-Grant ) Borderline ECG When compared with ECG of 19-Jul-2024 12:52, No significant change was found Confirmed by Brian Raya (54) on 05/08/2025 6:48:37 PM Narrative Procedure Note Brian Raya DO - 05/08/2025 IMPRESSION: Normal sinus rhythm Minimal voltage criteria for LVH, may be normal variant ( Sokolow-Grant ) Borderline ECG When compared with ECG of 19-Jul-2024 12:52, No significant change was found Confirmed by Brian Raya (54) on 05/08/2025 6:48:37 PM Susan Schwartz MD ECG ORDERABLES Final Result MUSE EKG * CT Bony Pelvis w/o Contrast (05/03/2025 11:20 AM EDT) Anatomical Region Laterality Modality Computed Tomogra phy 05/03/2025 11:2 4 AM EDT Impressions 05/03/2025 12:10 PM EDT No acute fracture or traumatic subluxation of the lumbar spine. No acute fracture or dislocation within the pelvis. I, Kadie Pires, have reviewed the examination and concur with the findings as reported or so edited. Trainee: Tita Adhikari If this radiology report contains a blank impression section, it is an incomplete radiology report. Please contact the interpreting radiologist or applicable radiology division as soon as possible to obtain the completed interpretation. Workstation ID: [id number] Up-to-date CT equipment and radiation dose reduction techniques were employed. CTDIvol: 28.7 mGy. DLP: 1239 mGy-cm. Narrative 05/03/2025 12:10 PM EDT INDICATION: Low back pain, increased fracture risk TECHNIQUE: Volumetrically acquired CT images of the lumbar spine and bony pelvis were obtained on 05/03/2025 11:07 AM without contrast.. Axial reformatted images utilizing bone and soft tissue reconstruction algorithm were obtained. Coronal and sagittal reformatted images utilizing bone reconstruction algorithm were obtained. COMPARISON: Pelvic radiograph 02/26/2025, CT bony pelvis on 04/11/2024. FINDINGS: Lumbar spine: There are 5 nonrib-bearing lumbar vertebrae. Alignment is maintained. Multilevel severe disc degeneration. Spinous processes and lateral processes are intact. Sacroiliac joints are congruent with degenerative change. 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 Both proximal femurs are intact. No acute fracture or dislocation. Pubic symphysis is congruent with mild degeneration. Soft tissues: The liver is mildly hyperdense to the spleen, nonspecific, and can be related to metallic deposition or medications. No adrenal nodule. No peripancreatic stranding. Nonaneurysmal abdominal aorta with calcified atherosclerotic plaque. Normal appendix. Nondistended bowel is without wall thickening. No renal calculi. No retroperitoneal or pelvic lymphadenopathy or free fluid. Resulting Agency Comment [id number] Procedure Note Kadie Pires MD PhD - 05/03/2025 INDICATION: Low back pain, increased fracture risk TECHNIQUE: Volumetrically acquired CT images of the lumbar spine and bonypelvis were obtained on 05/03/2025 11:07 AM without contrast.. Axialreformatted images utilizing bone and soft tissue reconstruction algorithmwere obtained. Coronal and sagittal reformatted images utilizing bonereconstruction algorithm were obtained. COMPARISON: Pelvic radiograph 02/26/2025, CT bony pelvis on 04/11/2024. FINDINGS: Lumbar spine: There are 5 nonrib-bearing lumbar vertebrae. Alignment ismaintained. Multilevel severe disc degeneration. Spinous processes andlateral processes are intact. Sacroiliac joints are congruent withdegenerative change. Bony pelvis: Both hip joints are congruent with moderate osteoarthritis.Both proximal femurs are intact. No acute fracture or dislocation. Pubicsymphysis is congruent with mild degeneration. Soft tissues: The liver is mildly hyperdense to the spleen, nonspecific,and can be related to metallic deposition or medications. No adrenalnodule. No peripancreatic stranding. Nonaneurysmal abdominal aorta withcalcified atherosclerotic plaque. Normal appendix. Nondistended bowel iswithout wall thickening. No renal calculi. No retroperitoneal or pelviclymphadenopathy or free fluid. IMPRESSION: No acute fracture or traumatic subluxation of the lumbar spine. No acutefracture or dislocation within the pelvis. I, Kadie Pires, have reviewed the examination and concur with thefindings as reported or so edited. Trainee: Tita Adhikari If this radiology report contains a blank impression section, it is anincomplete radiology report. Please contact the interpreting radiologistor applicable radiology division as soon as possible to obtain thecompleted interpretation. Workstation ID: [id number] Up-to-date CT equipment and radiation dose reduction techniques wereemployed. CTDIvol: 28.7 mGy. DLP: 1239 mGy-cm. Toby Menchaca NP IM CT PROCEDURES Final Result * CT Lumbar Spine WO Contrast (05/03/2025 11:20 AM EDT) Anatomical Region Laterality Modality Spine, L-spine Computed Tomogra phy 05/03/2025 11:2 4 AM EDT Impressions 05/03/2025 12:10 PM EDT No acute fracture or traumatic subluxation of the lumbar spine. No acute fracture or dislocation within the pelvis. I, Kadie Pires, have reviewed the examination and concur with the findings as reported or so edited. Trainee: Tita Adhikari If this radiology report contains a blank impression section, it is an incomplete radiology report. Please contact the interpreting radiologist or applicable radiology division as soon as possible to obtain the completed interpretation. Workstation ID: [id number] Up-to-date CT equipment and radiation dose reduction techniques were employed. CTDIvol: 28.7 mGy. DLP: 1239 mGy-cm. Narrative 05/03/2025 12:10 PM EDT INDICATION: Low back pain, increased fracture risk TECHNIQUE: Volumetrically acquired CT images of the lumbar spine and bony pelvis were obtained on 05/03/2025 11:07 AM without contrast.. Axial reformatted images utilizing bone and soft tissue reconstruction algorithm were obtained. Coronal and sagittal reformatted images utilizing bone reconstruction algorithm were obtained. COMPARISON: Pelvic radiograph 02/26/2025, CT bony pelvis on 04/11/2024. FINDINGS: Lumbar spine: There are 5 nonrib-bearing lumbar vertebrae. Alignment is maintained. Multilevel severe disc degeneration. Spinous processes and lateral processes are intact. Sacroiliac joints are congruent with degenerative change. 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 Both proximal femurs are intact. No acute fracture or dislocation. Pubic symphysis is congruent with mild degeneration. Soft tissues: The liver is mildly hyperdense to the spleen, nonspecific, and can be related to metallic deposition or medications. No adrenal nodule. No peripancreatic stranding. Nonaneurysmal abdominal aorta with calcified atherosclerotic plaque. Normal appendix. Nondistended bowel is without wall thickening. No renal calculi. No retroperitoneal or pelvic lymphadenopathy or free fluid. Resulting Agency Comment [id number] Procedure Note Kadie Pires MD PhD - 05/03/2025 INDICATION: Low back pain, increased fracture risk TECHNIQUE: Volumetrically acquired CT images of the lumbar spine and bonypelvis were obtained on 05/03/2025 11:07 AM without contrast.. Axialreformatted images utilizing bone and soft tissue reconstruction algorithmwere obtained. Coronal and sagittal reformatted images utilizing bonereconstruction algorithm were obtained. COMPARISON: Pelvic radiograph 02/26/2025, CT bony pelvis on 04/11/2024. FINDINGS: Lumbar spine: There are 5 nonrib-bearing lumbar vertebrae. Alignment ismaintained. Multilevel severe disc degeneration. Spinous processes andlateral processes are intact. Sacroiliac joints are congruent withdegenerative change. Bony pelvis: Both hip joints are congruent with moderate osteoarthritis.Both proximal femurs are intact. No acute fracture or dislocation. Pubicsymphysis is congruent with mild degeneration. Soft tissues: The liver is mildly hyperdense to the spleen, nonspecific,and can be related to metallic deposition or medications. No adrenalnodule. No peripancreatic stranding. Nonaneurysmal abdominal aorta withcalcified atherosclerotic plaque. Normal appendix. Nondistended bowel iswithout wall thickening. No renal calculi. No retroperitoneal or pelviclymphadenopathy or free fluid. IMPRESSION: No acute fracture or traumatic subluxation of the lumbar spine. No acutefracture or dislocation within the pelvis. I, Kadie Pires, have reviewed the examination and concur with thefindings as reported or so edited. Trainee: Tita Adhikari If this radiology report contains a blank impression section, it is anincomplete radiology report. Please contact the interpreting radiologistor applicable radiology division as soon as possible to obtain thecompleted interpretation. Workstation ID: [id number] Up-to-date CT equipment and radiation dose reduction techniques wereemployed. CTDIvol: 28.7 mGy. DLP: 1239 mGy-cm. Toby Menchaca NP IM CT PROCEDURES Final Result from Last 3 Months Insurance [facility] FEDERAL MEDICARE Advance Directives Documents on File Type Date Recorded Patient Home Health Care Respiratory Therapist Expl anation Health Care Proxy 05/27/2025 1:43 PM 10- MOLST/POLST 05/07/2025 2:45 PM 05-29-2024 MOLST/POLST 05/07/2025 2:12 PM 05-29-2024 Health Care Proxy 05/07/2025 6:13 AM 05-06 * DNR/DNI (Latest Code Status on File) Date Activated Date Inactivated Comments 05/07/2025 1:55 PM 05/08/2025 8:48 PM * Full Code Date Activated Date Inactivated Comments 05/06/2025 3:25 AM 05/07/2025 1:55 PM Care Teams Chemical Mixer Relationship Specialty Start Date End Date Abhilash Bella MD [address] [place] [id number] PCP - General Internal Medicine 09/17/23
--- OUTSIDE RECORDS SUMMARY | 2025-06-18 19:03 | XMS_ITS | Clinical Summary ---
Author Organization Roxi Bauer [facility] Address [address] [place] [id number] Care Team Providers Care Avionic Technician Name Role Phone Erick Valencia DO Primary Care Provider Medications atorvaSTATin (LIPITOR) 40 MG tablet 40 MG PO 1999 8 Active polyethylene glycol (MIRALAX) 17 gram packet 17 G PO DAILY PRN constipation 30 each 0 2 Active ketoconazole (NIZORAL) 2 % shampoo 1 APPLIC TOPICAL 3XW 2 Active calcium carbonate-vitam in D3 (CALCIUM 600 + D,3,) 600 mg-5 mcg (200 unit) cap 1 TAB PO BID 9 Active omeprazole (PriLOSEC) [address] capsule MG PO DAILY 2 Active cyanocobalamin (VITAMIN B-12) 1000 MCG tablet 2,500 MCG PO 0900 9 Active docusate sodium (COLACE) 100 MG capsule 100 MG PO BID 60 capsule 0 2 Active levothyroxine (SYNTHROID, LEVOXYL) 50 MCG tablet 50 MCG PO 0600 2 Active clopidogreL (PLAVIX) 75 mg tablet 75 MG PO 0900 8 Active famotidine (PEPCID) 40 MG tablet 40 MG PO QHS 2 Active levETIRAcetam (KEPPRA) 250 MG tablet 250 MG PO BID 8 Active folic acid (FOLVITE) 400 MCG tablet 400 MCG PO 0900 9 Active venlafaxine ER (EFFEXOR-XR) 150 MG 24 hr capsule 150 MG PO DAILY 2 Active carbidopa-levod opa (SINEMET) 25-100 mg per tablet 1.5 TAB PO TID 2 Active isosorbide mononitrate ER (IMDUR) 30 MG 24 hr tablet 90 MG PO 0900 9 Active ipratropium (ATROVENT) 42 mcg (0.06 %) nasal spray 2 SPRAY INTRANASAL BID PRN Allergy Symptoms 9 Active aspirin 81 MG EC tablet 81 MG PO DAILY 2 Active Active Problems Problem Noted Date Diagnosed Date Displaced fracture of base o f unspecified metacarpal bone, initial encounter for closed fracture 09/07/2021 Other abnormalities of gait and mobility 022 Other malaise 08/11/2021 Unsteadiness on feet 05/31/2019 Fracture of orbit, unspecifi ed, initial encounter for closed fracture 05/08/2019 Syncope and collapse 05/08/2019 Unspecified fall, initial encounter 05/08/2019 Hypo-osmolality and hyponatremia 04/10/2019 Chest pain, unspecified 04/10/2019 Overview (04/23/2024): ICD-10 Qualified Code(s): R07.9 - Chest pain, unspecified; Chest pain type - unspecified; Personal history of other di seases of the circulatory system 04/10/2019 Hyperlipidemia, unspecified 09/18/2018 Parkinson's disease 09/18/2018 Epilepsy, unspecified, not i ntractable, without status epilepticus 09/18/2018 Essential (primary) hypertension 09/18/2018 Overview (04/23/2024): ICD-10 Qualified Code(s): I10 - Essential (primary) hypertension; Hypertension type - essential hypertension; Hypertensive urgency 09/18/2018 Gastro-esophageal reflux disease without esophag itis 09/18/2018 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 09/18/2018 Chest pain, unspecified 09/18/2018 Presence of coronary angioplasty implant and gra ft 09/18/2018 Immunizations Immunization Administration Dates Next Due COVID-19 Vaccine (MODERNA) 11/22/2021,06/27/2021,10/19/2020,2020 Influenza Vaccine - HIGH DOS E (FLUZONE HD) 05/08/2022,04/12/2021,04/19/2020 Tdap Vaccine (BOOSTRIX/ADACEL) 07/28/2022 Social History Tobacco Use Types Packs/Day Years Used Date Smoking Tobacco: Never Assessed Comments Unknown Sex and Gender Information Value Date Recorded Sex Assigned at Female 11/14/2024 11:56 AM EDT Legal Sex Female 2:08 AM EST Gender Identity Female 09/04/2023 2:08 AM EST Sexual Orientation Not on file Last Filed Vital Signs Vital Sign Reading Time Taken Comments Blood Pressure - - Pulse - - Temperature - - Respiratory Rate - - Oxygen Saturation - - Inhaled Oxygen Concentration - - Weight 55.8 kg (123 lb) 10/16/2022 2:20 PM EDT Height 151.8 cm (4' 11.75 ) 10/16/2022 2:20 PM E DT Body Mass Index 24.22 10/16/2022 2:20 PM EDT Plan of Treatment Health Maintenance Due Date Last Done Comments Blood Pressure 1940 Depression Screening 1952 Medicare Initial AWV [id number] 06/06/2005 Lipid Panel 06/10/2022 06/10/2021, 05/07, 04/24/2019, Additional history exists COVID-19 Vaccine ( season) 2025 11/22/2021, 06/27/2021, 10/19/2020, Additional history exists Influenza Vaccine (#1) 2025 , 04/26/2023, 04/26/2023, Additional history exists DTaP,Tdap,and Td Vaccines (2 - Td or Tdap) 07/28/2032 07/28/2022, 07/28/2022 Osteoporosis Screening Completed 3, 04/10/2023, 10/13/2021 Pneumococcal Vaccine: 50+ Years Completed 09/10/2023 Zoster Vaccine Completed 11/20/2023, 09/21/2023 Meningococcal B Vaccines Aged Out No longer eligible based on patient's age to complete this topic Meningococcal Vaccines Aged Out No lo nger eligible based on patient's age to complete this topic Procedures Procedure Name Priority Date/Time Associated Diagnosis Comments XR DXA BONE DENSITY HIP PELVIS OR SPINE AXIAL Routine 10/13/2021 12:04 AM EST LIPID PANEL Routine 06/10/2021 10:48 AM EDT from Last 3 Months or Most Recently Relevant to Health Maintenance Results * XR DXA Bone Density Hip Pelvis or Spine Axial (10/13/2021 12:04 AM EST) Anatomical Region Laterality Modality Pelvis, Spine, Hip Radiographic Imaging 10/13/2021 12:0 4 AM EST 10/13/2021 10:40 AM EST Impressions 10/13/2021 11:16 AM EST This woman has osteoporosis on the basis of the bone density in the forearm. This pattern of findings with forearm being disproportionately lower than the other skeletal sites is occa sionally seen in patients with hyperparathyroidism. When compared to the most recent study from 12/24/2014, there has been 4% increase in the total hip bone density. This change is clinically and statistically significant. There has been 17.7% increase in the LS-spine bone density. This change is clinically and statistically significant. When compared to the baseline measurement from 10/26/2008, there has been 1.6% increase in the total hip bone density. There has been 16.9% increase in the LS- spine bone density. This change is clinically and statistically significant. The WHO defines osteoporosis as a BMD Level of 2.5 S.D., or more, lower than an ideal, young, normal BMD; and osteopenia as a BMD Level between 1 and 2.5 S.D., lower than ideal, normal BMD. Signed By: Jorge Layton on 10/13/2021 11:15 AM on [email or web address] ___ Technologist: Evelin Hernandez Dictated By : Jorge Layton MD Transcribed By : [email or web address] Signed By: <Electronically signed by Jorge Layton MD in OV> Jorge Layton MD Signed Date/Time : 10/13/211114 DD/DT : 10/13/211112 TD/TT : 10/13/215 CC : Mike Valencia DO Narrative 10/13/2021 11:16 AM EST [address] [id number] XRay Report Signed Patient : Tequila Dalton MR# : [id number] : 1940 Acct : [id number] Age/Sex : 81 / F ADM Date : 10/13/21 Loc : [facility] Attending Dr : Erick Valencia DO ER Physician: Ordering Physician : Mike Valencia DO Pat Date of Service : 10/13/21 Procedures(s) : XR bone density axial complete Accession Numbers(s) : [id number] CC : Mike Valencia DO * Reason for test: Menopause, screening for osteoporosis. Osteoporosis Type of equipment: [employer] Discovery C DXA Clinical highlights: No significant history. Technique: Axial Arthritis is noted in the spine. The quality of the scan is excellent elsewhere. Results: Lumbar spine: T = 0.8 Femoral neck: T = -1.2 Total hip: T = -0.9 One third forearm: T = -3.2 Procedure Note Jorge Layton MD - 05/06/[address] [id number] XRay Report Signed Patient : Tequila Dalton MR# : [id number] : 1940 Acct : [id number] Age/Sex : 81 / F ADM Date : 10/13/21 Loc : [facility] Attending Dr : Erick Valencia DO ER Physician: Ordering Physician : Mike Valencia DO Pat Date of Service : 10/13/21 Procedures(s) : XR bone density axial complete Accession Numbers(s) : [id number] CC : Mike Jassoadán DO Erik * Reason for test: Menopause, screening for osteoporosis. Osteoporosis Type of equipment: [employer] Discovery C DXA Clinical highlights: No significant history. Technique: Axial Arthritis is noted in the spine. The quality of the scan is excellentelsewhere. Results: Lumbar spine: T = 0.8 Femoral neck: T = -1.2 Total hip: T = -0.9 One third forearm: T = -3.2 IMPRESSION: This woman has osteoporosis on the basis of the bone densityin the forearm. This pattern of findings with forearm beingdisproportionately lower than the other skeletal sites is occa sionally seen in patients with hyperparathyroidism. When compared to the most recent study from 12/24/2014, there has been 4%increase in the total hip bone density. This change is clinically andstatistically significant. There has been 17.7% increase in the LS-spine bone density. This change is clinically andstatistically significant. When compared to the baseline measurement from 10/26/2008, there has been1.6% increase in the total hip bone density. There has been 16.9% increasein the LS-spine bone density. This change is clinically and statistically significant. The WHO defines osteoporosis as a BMD Level of 2.5 S.D., or more, lowerthan an ideal, young, normal BMD; and osteopenia as a BMD Level between 1and 2.5 S.D., lower than ideal, normal BMD. Signed By: Jorge Layton on 10/13/2021 11:15 AM on [email or web address] ___ Technologist: Evelin Hernandez Dictated By : Jorge Layton MD Transcribed By : MARKUS Signed By: <Electronically signed by Jorge Layton MD in OV> Jorge Larios MD Signed Date/Time : 10/13/211114 DD/DT : 10/13/211112 TD/TT : 10/13/211114 CC : Mike Valencia DO Erick Valencia DO IMG DIAGNOSTIC IMAGING ORDERABLES Final Result * (ABNORMAL) Lipid Panel (06/10/2021 10:48 AM EDT) Triglycerides 106 <150 mg/dL CONVE RSION FROM [facility] Cholesterol 159 <200 mg/dL CONVERS ION FROM [facility] LDL-CHOL CALC (CNV) 60 mg/dL CONVERSION FROM [facility] Comment: Reference range: >20 years of age Acceptable: <130 mg/dL Borderline: 130-159 mg/dL High: >159 mg/dL National Cholesterol Education Program Guidelines Reference range: >20 years of age Acceptable: <130 mg/dL Borderline: 130-159 mg/dL High: >159 mg/dL National Cholesterol Education Program Guidelines HDL Cholesterol 78(H) 40 - 60 mg/dL CONVERSION FROM [facility] Comment: Cardiovascular risk <40 mg/dL High risk >60 mg/dL Low risk 06/10/2021 10:4 8 AM EDT 06/10/2021 10:48 AM EDT Erick Valencia DO LAB BLOOD ORDERABLES Fi nal Result CONVERSION FROM [facility] from Last 3 Months or Most Recently Relevant to Health Maintenance Insurance MEDICARE MEDICARE Advance Directives Documents on File Type Date Recorded Patient Usability Specialist [facility] Proxy 07/28/2022 1:01 PM [place] Care Proxy Care Teams Avionic Technician Relationship Specialty Start Date End Date Erick Valencia DO [address] [place], [place] [address] [address] PCP - General 10/16/22
--- OUTSIDE RECORDS SUMMARY | 2025-06-18 19:03 | XMS_ITS | Clinical Summary ---
Author Organization [facility] [employer] Address [address] [place] [address] Care Team Providers Care Nougat Cutter Machine Name Role Phone Abhilash Bella MD Primary Care Pr ovider Immunizations Immunization Administration Dates Next Due Fluad Quadrivalent High Dose (65+ years) 023 Social History Tobacco Use Types Packs/Day Years Used Date Smoking Tobacco: Never Assessed Comments Unknown Sex and Gender Information Value Date Recorded Sex Assigned at Not on file Legal Sex Female 4:12 PM EDT Gender Identity Not on file Sexual Orientation Not on file Plan of Treatment Health Maintenance Due Date Last Done Comments Depression: Screening Annual ly using PHQ-2/9 in Adults 18 yrs or above (or HM Modifier)([facility]) 1957 SDOH Screening Reminder: Carmita murillo for all adults ([facility]) 1958 Tobacco Smoking Cessation: i n Adults excluding Women: Behavioral and Pharmacotherapy Interventions ([facility]) 1957 DTaP/Tdap/Td Vaccines ([facility]) (1 - Tdap) 1958 Pneumococcal Vaccination Scr eening: Patients 50+ yrs of age ([facility]) (1 of 1 - PCV) 1989 Zoster/Shingles Vaccine Seri es Screening: Adults aged 18+ yrs (or HM Modifiers)([facility]) (1 of 2) 1989 RSV Vaccines (1 - 1-dose 75+ series) 2014 Flu Vaccination: Ages 65+: Y early High Dose Recommended (or Modifier)([facility]) 03/06/2025 04/26/2023 COVID-19 Vaccine Screening: Initial Series and Booster Status ([facility]) (2024- season) 2025 Osteoporosis Screening to Pr event Fractures: Women aged 65 years+ ([facility]) 04/10/2025 04/10/2023 Medical Devices Not on file Insurance [facility] [employer] [facility] Care Teams Nougat Cutter Machine Relationship Specialty Start Date End Date Abhilash Bella MD [address] [place] [address] [phone] PCP - General Internal Medicine 04/26/23
--- OUTSIDE RECORDS SUMMARY | 2025-06-18 19:03 | XMS_ITS | Data Portability ---
Author Organization [facility], [employer] Address [address] [place] [address] Care Team Providers Care Last Model Maker Name Role Phone NIEVES BASHIR Primary Care Provider [phone] NIEVES BASHIR Referring Provider Assessment Encounter Date Assessment Date Assessment LastModified by Organization Details LastModified Time 03/19/2024 03/19/2024 X-Rays]: Deferred Not available 03/23/2024 14:24:49 Plan of Treatment Reminders Order Date Submit Date Provider Last Modified By Organization Details Last Modified Time Details Appointments None record ed. Lab None record ed. Referral None record ed. Procedures None record ed. Surgeries None record ed. Imaging None record ed. Medication Orders None record ed. Patient TargetsNo targets recorded. Patient Instructions Encounter Date Encounter Id Patient Instructions Last Modified By Organization Details Last Modified Time 03/19/2024 [id number] TREATMENT: Exam patient from pedal standpoint. Document findings in the medical record. Discuss with the patient proper footcare in prevention of common pedal problems. The patient has completed a history of physical form which was examined and discussed, as well as entered into the chart on this office visit. The past medical history, surgical history, medications, allergies, family and social history were reviewed. Reduce the excessively elongated, clinically apparent mycotic toenails 1-5 BL with nail clippers and electric jadon to the point of imminent bleeding but not past this point due to the risk of complications. Application of topical betadine solution to the nail plates. No dressings necessary. Non-anesthesia, slant back, partial nail avulsion performed sharply to the tolerance of the patient, Lt. hallux, BL nail border with curette of the subungal debris/callus. (-) purulent drainage expression noted. (+) nucleated callus noted within the nail groove after resection of the incurvated nail plate. (-) dressings required. X-rays deferred, 3 views total BL foot WB. X-rays were taken as diagnostic aid with regard to presenting complaint. The X-rays were visually reviewed with the patient following the x-ray exam with discussion regarding the pathology present. The diagnosis, prognosis, treatment alternatives and challenges associated with treating this problem were discussed with the patient. I explained the realistic expectations of using topical antifungals and the need for at least 12 months continuous treatment. The patient was told that taking 200 mg FLUCONAZOLE tablets for 48 weeks (1 pill weekly) is a covered therapy for toenail fungus treatment. The reported effectiveness rate is anywhere from 60-85%. I also explained that systemic antifungals work inconsistently depending on location and severity of the fungal infection. The remote possibility of liver disease developing as a result of using these systemic antifungals as well as the drug interactions was also discussed. I explained to the patient the etiology and treatment options for onychomycosis including no treatment, laser, oral and topical medications and periodic debridement. As an alternative to singular oral antifungal therapy, the patient was told that oral FLUCONAZOLE therapy (5 months) followed by 1 LASER SESSION (month 6) has proven to be the most effective treatment in reducing/curing the fungal nail bed infection associated with onychomycosis. The benefit of combination therapy treatment onychomycosis is greater efficacy with lower risk of systemic side effects. The patient was also informed that laser therapy for onychomycotic toenails is not a covered service under any insurance plans and the patient is required to pay prior to each laser session, generally $200 per session (10 toenails must be lasered--whether visually involved or not). The laser therapy is not completely pain free and requires the toenail bed to be heated to 135 degrees to have cidal effect on the fungal spores. Further, If patient has neuropathy or low pain tolerance, they are not deemed to be good candidates for laser therapy. T he patient had several questions regarding the procedure in these were answered to her satisfaction. The patient Defers therapy on this OV:. at this time. This office visit note was written (majority) in the presence of the patient employing templates and free text which may include some unintentional grammatical and context errors. Total Time spent with patient, reviewing patient documentation, and use of the EMR system: minutes. SCHEDULE: PRN. Not available 03/23/2024 14:25:40 Reason for Referral None Reported. Medical Equipment None Reported. Allergies No known drug allergies Medications Name Sig Start Date Stop Date Status Note LastModified by Organization Details LastModified Time atorvastatin 40 mg tablet TAKE 1 TABLET BY MOUTH EVERY DAY active Not Available Not Available No t Available ketoconazole 2 % shampoo APPLY TOPICALLY TO DAMP SKIN, LATHER, LEAVE ON 5 MINUTES, AND RINSE - USE TWICE A WEEK active Not Available Not Available No t Available carbidopa ER 25 mg-levodopa 100 mg tablet,extend ed release TAKE 1 TABLET BY MOUTH EVERY DAY AT BEDTIME active Not Available Not Available N ot Available levetiracetam 500 mg tablet TAKE 1 TABLET BY MOUTH TWICE A DAY active Not Available Not Available No t Available isosorbide mononitrate ER 30 mg tablet,extend ed release 24 hr TAKE 3 TABLETS BY MOUTH EVERY DAY FOR 90 DAYS active Not Available Not Available No t Available venlafaxine ER 150 mg capsule,exten ded release 24 hr TAKE 1 CAPSULE BY MOUTH EVERY DAY active Not Available Not Available No t Available clopidogrel 75 mg tablet TAKE 1 TABLET BY MOUTH EVERY DAY active Not Available Not Available No t Available amlodipine 5 mg tablet TAKE 1 TABLET (5 MG TOTAL) BY MOUTH DAILY. active Not Available Not Available No t Available amlodipine 10 mg tablet TAKE 1 TABLET BY MOUTH EVERY DAY active Not Available Not Available No t Available levothyroxine 50 mcg tablet TAKE 1 TABLET BY MOUTH EVERY DAY IN THE MORNING active Not Available Not Available No t Available hydrochloroth iazide 12.5 mg capsule TAKE 1 CAPSULE BY MOUTH EVERY DAY active Not Available Not Available No t Available nitroglycerin 0.[address] 1 TABLET UNDER THE TONGUE EVERY 5 MINUTES NEEDED FOR CHEST PAIN. active Not Available Not Available No t Available omeprazole 20 mg capsule,delay ed release TAKE 1 CAPSULE BY MOUTH TWICE A DAY active Not Available Not Available No t Available metoprolol succinate ER 25 mg tablet,extend ed release 24 hr TAKE 1/2 TABLET BY MOUTH EVERY DAY active Not Available Not Available No t Available fluocinonide 0.05 % topical solution APPLY TOPICALLY 2 TIMES A DAY TO SCALP SUNDAY THROUGH SUNDAY WEEKENDS OFF REPEAT NEEDED active Not Available Not Available No t Available carbidopa 25 mg-levodopa 100 mg tablet TAKE 2 TABLETS BY MOUTH 3 TIMES A DAY active Not Available Not Available No t Available olmesartan 40 mg tablet TAKE 1 TABLET BY MOUTH EVERY DAY active Not Available Not Available No t Available Vitals Date Recorded Body weight Body mass index (BMI) Body height Provider Name and Address Organization Details Last Updated DateTime 03/19/2024 85534.71 g 23.4 kg/m2 149.86 cm yonatan [facility] 03/19/2024 11:01:43 Social History Question Answer Notes LastModified by Organizat ion Details LastModified Time Tobacco Smoking Status Never Smoker yonatan hernandez [place] [facility]ar[facility] 03/19/2024 11:02:31 DATE LAST SEEN BY PCP 02/19/2024 [facility]ights Information not available 03/19/2024 Sex: Unknown Functional Status None recorded. Mental Status None recorded. Family History Nothing Reported Notes:heart disease, HTN, ne uro disorders Medical History Condition Response Heart Disease Y Thyroid Problems Y Hypertension Y Gynecological HistoryNo gynecological history recorded. 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 010524765 B35.1 Ingrowing great toenail 076479136 L60.0 Health Concerns Section Related Observation LastModified by Organization Detai ls LastModified Time None Recorded Concern Status LastModified by Organization Details LastModified Time None Recorded Advance Directives Directive None Recorded Payers Insurance Date Sequence Insurance Name Policy Number Policy [place] Covered Member ID [place] Member ID Guarantor Name 04/22/2024 1 [place] [employer] Tequila Dalton [id number] Tequila Dalton 04/22/2024 2 [place] [employer] [id number] Tequila Dalton [id number] Tequila Dalton 04/15/2024 2 [place] [facility] [employer] Tequila Dalton [id number] Tequila Dalton Notes Date Note Type Note Provider Name and Address Organization Details Recorded Time 03/19/20 24 text/htm l Podiatry FootReported by PatientHPIFor associated symptoms, patient reportsachingandthrobbingbut reportsno weakness,no numbness,no tingling,no swelling,no redness,no warmth,no radiation down leg, andno drainage. For location, patient reportsleft (hallux, with bl ingrown nail borders.)((+) pain noted distal aspect of the hallux, dorsal aspect of the nail plate.). For quality, patient reportsaching,throbbing, andconstant. For severity, patient reportsmild. For duration, patient reports1 yearsandcontinuous since onset. For timing, patient reportschronicandabrupt. For context, patient reportscannot identify. For alleviating factors, patient reportsremoval of shoes. For previous surgery, patient reportsnone. For prior imaging, patient reportsnone. For previous injections, patient reportsnone. For previous treatments, patient reportsnone. For aggravating factors, (any shoes with tight toebox).ROS as noted in the HPI New Pt.: Initial evaluation, CC/HPI: clinically apparent fungal toenail that are discolored in appearance, thickened in nature, and painful--Lt. hallux. The patient states that the toenails are painful in shoegear and does limit ambulation abilities-especially when the toenail get long/Thick. The patient presentation is complicated pain with ambulation that is limiting in nature with regard to shoegear. The patient has a plantar callus under the 1st MTPJ region, due to apparent hallux EXTENSUS deformity. Clayton Bhatt, NANDO [address] [facility], [place], [phone], [facility] 03/23/2024 14:26:21 OBGyn Episode No OBEpisode recorded.
--- OUTSIDE RECORDS SUMMARY | 2025-06-18 19:03 | XMS_ITS | Encounter Summary ---
Author Organization [facility] Address [address] [place] [address] Care Team Providers Care Human Resources Receptionist Name Role Phone Abhilash Bella MD Primary Care Pr ovider Encounter Details Date Type Department Care Team (Late st Contact Info) Description 05/08/2025 Lab Requisition [facility] Lab [address] [place] [address] Shanae Hahn NP [address], [place] [id number] Social History Tobacco Use Types Packs/Day Years Used Date Smoking Tobacco: Never Smokeless Tobacco: Never Hunger Vital Sign Answer Date Recorded Within the past 12 months, y ou worried that your food would run out before you got the money to buy more. Never true 05/06/20 25 Within the past 12 months, t he food you bought just didn't last and you didn't have money to get more. Never true 05/06/2025 [facility] Utilities Answer Date Recorded In the past 12 months has th [employer] electric, gas, oil, or water company threatened [...] AM EST documented as of this encounter Functional Status documented as of this encounter Plan of Treatment Not on file documented as of this encounter Procedures * Due to [place] Hyperfair law, this organization might not be sharing negative HIV tests. Procedure Name Priority Date/Time Associated Diagnosis Comments CBC AUTO DIFFERENTIAL Routine 05/21/2025 7:10 AM EDT BASIC METABOLIC PANEL Routine 05/21/2025 7:10 AM EDT CBC AUTO DIFFERENTIAL Routine 05/18/2025 7:05 AM EDT BASIC METABOLIC PANEL Routine 05/18/2025 7:05 AM EDT CBC AUTO DIFFERENTIAL Routine 05/14/2025 8:15 AM EDT BASIC METABOLIC PANEL Routine 05/14/2025 8:15 AM EDT CBC AUTO DIFFERENTIAL Routine 05/11/2025 6:05 AM EDT BASIC METABOLIC PANEL Routine 05/11/2025 6:05 AM EDT CBC AUTO DIFFERENTIAL Routine 05/09/2025 11:29 AM EDT ALBUMIN Routine 05/09/2025 11:29 AM EDT BASIC METABOLIC PANEL Routine 05/09/2025 11:29 AM EDT documented in this encounter Results * Due to [place] Hyperfair law, this organization might not be sharing negative HIV tests. * Basic Metabolic Panel (05/21/2025 7:10 AM EDT) NA 140 136 - 145 mmol/L 05/21/2025 9:39 AM EDT [facility] K 3.7 3.5 - 5.1 mmol/L 05/21/2025 9:39 AM EDT [facility] Cl 99 97 - 110 mmol/L 05/21/2025 9:39 AM EDT [facility] CO2 29 22 - 32 mmol/L 05/21/2025 9:39 AM EDT [facility] BUN 22 8 - 23 mg/dL 05/21/2025 9:39 AM EDT [facility] Creatinine 0.52 0.50 - 1.12 mg/dL 05/21/2025 9:39 AM EDT [facility] Glucose 93 60 - 99 mg/dL 05/21/2025 9:39 AM EDT [facility] Calcium 9.0 8.4 - 10.4 mg/dL 05/21/2025 9:39 AM EDT [facility] Anion Gap 16 >=0 05/21/2025 9:39 AM T [facility] eGFR >90 >=60 mL/min/1. 73m2 05/21/2025 9:39 AM T [facility] Comment:The estimated glomer ular filtration rate (eGFR) [...] peripheral vein / Unknown Venipuncture / Unknown 05/21/2025 7:10 AM EDT 05/21/2025 7:36 AM EDT [facility] - 05/21/2025 9:39 AM EDT NUR1\S\103\S\A\S\0156\S\S\BED\S\0156 us Lety Kaiser LAB BLOOD ORDERABLES Final Resul t [facility] [address] [facility] [address] [place] [address], [place] [phone] * (ABNORMAL) CBC Auto Differential (05/21/2025 7:10 AM EDT) WBC 8.0 4.8 - 10.8 10*3/uL 05/21/2025 8:59 AM EDT [facility] RBC 3.84(L) 4.20 - 5.40 10*6/uL 05/21/2025 8:59 AM EDT [facility] Hemoglobin 11.4(L) 11.7 - 15.5 g/dL 05/21/2025 8:59 AM EDT [facility] Hematocrit 34.4(L) 35.7 - 45.8 % 05/21/2025 8:59 AM EDT [facility] MCV 89.6 81.0 - 99.0 fL 05/21/2025 8:59 AM EDT [facility] MCH 29.7 26.0 - 34.0 pg 05/21/2025 8:59 AM EDT [facility] MCHC 33.1 31.0 - 36.0 g/dL 05/21/2025 8:59 AM EDT [facility] RDW 14.3 12.0 - 15.0 % 05/21/2025 8:59 AM EDT [facility] RDW Standard Deviation 46.6(H) 36.4 - 46.3 fL 05/21/2025 8:59 AM EDT [facility] Platelets 272 140 - 440 10*3/uL 05/21/2025 8:59 AM EDT [facility] MPV 11.0 9.4 - 12.3 fL 05/21/2025 8:59 AM EDT [facility] Neutrophil % 68.7 50.0 - 75.0 % 05/21/2025 8:59 AM EDT [facility] Immature Grans % 0.3 0.0 - 0.9 % 05/21/2025 8:59 AM EDT [facility] Lymphocyte % 22.9 20.0 - 44.0 % 05/21/2025 8:59 AM EDT [facility] Monocyte % 7.3 0.0 - 14.0 % 05/21/2025 8:59 AM EDT [facility] Eosinophil % 0.5 0.0 - 5.0 % 05/21/2025 8:59 AM EDT [facility] Basophil % 0.3 0.0 - 2.0 % 05/21/2025 8:59 AM EDT [facility] Neutrophil # 5.47 1.80 - 7.70 10*3/uL 05/21/2025 8:59 AM EDT [facility] Immature Grans # <0.03 0.00 - 0.03 10*3/uL 05/21/2025 8:59 AM EDT [facility] Lymphocyte # 1.80 1.00 - 4.75 10*3/uL 05/21/2025 8:59 AM EDT [facility] Monocyte # 0.60 0.00 - 0.60 10*3/uL 05/21/2025 8:59 AM EDT [facility] Eosinophil # <0.03 0.00 - 0.80 10*3/uL 05/21/2025 8:59 AM EDT [facility] Basophil # <0.03 0.00 - 0.20 10*3/uL 05/21/2025 8:59 AM EDT [facility] nRBC % 0.0 0 - 0 /100 WBCs 05/21/2025 8:59 AM EDT [facility] nRBC # <0.01 0.00 - 0.13 10*3/uL 05/21/2025 8:59 [facility] Blood Structure of peripheral vein / Unknown Venipuncture / Unknown 05/21/2025 7:10 AM EDT 05/21/2025 7:36 AM EDT us Lety Kaiser LAB BLOOD ORDERABLES Final Resul t [facility] [address] [place] [address], [place] [phone] * (ABNORMAL) Basic Metabolic Panel (05/18/2025 7:05 AM EDT) NA 141 136 - 145 mmol/L 05/18/2025 11:07 AM EDT [facility] K 4.2 3.5 - 5.1 mmol/L 05/18/2025 11:07 AM EDT [facility] Cl 98 97 - 110 mmol/L 05/18/2025 11:07 AM EDT [facility] CO2 30 22 - 32 mmol/L 05/18/2025 11:07 AM EDT [facility] BUN 13 8 - 23 mg/dL 05/18/2025 11:07 AM EDT [facility] Creatinine 0.49(L) 0.50 - 1.12 mg/dL 05/18/2025 11:07 AM EDT [facility] Glucose 145(H) 60 - 99 mg/dL 05/18/2025 11:07 AM EDT [facility] Calcium 9.3 8.4 - 10.4 mg/dL 05/18/2025 11:07 AM EDT [facility] Anion Gap 17 >=0 05/18/2025 11:07 AM EDT [facility] eGFR >90 >=60 mL/min/1. 73m2 05/18/2025 11:07 AM EDT [facility] Comment:The estimated glomer ular filtration rate (eGFR) [...] peripheral vein / Unknown Venipuncture / Unknown 05/18/2025 7:05 AM EDT 05/18/2025 8:49 AM EDT Narrative [facility] - 05/18/2025 11:07 AM EDT NUR1\S\103\S\A\S\0156\S\S\BED\S\0156 us Lety Kaiser LAB BLOOD ORDERABLES Final Resul t [facility] [address] [facility] [address] [place] [address], [place] [phone] * (ABNORMAL) CBC Auto Differential (05/18/2025 7:05 AM EDT) WBC 7.1 4.8 - 10.8 10*3/uL 05/18/2025 10:46 AM EDT [facility] RBC 4.40 4.20 - 5.40 10*6/uL 05/18/2025 10:46 AM EDT [facility] Hemoglobin 12.9 11.7 - 15.5 g/dL 05/18/2025 10:46 AM EDT [facility] Hematocrit 40.2 35.7 - 45.8 % 05/18/2025 10:46 AM EDT [facility] MCV 91.4 81.0 - 99.0 fL 05/18/2025 10:46 AM EDT [facility] MCH 29.3 26.0 - 34.0 pg 05/18/2025 10:46 AM EDT [facility] MCHC 32.1 31.0 - 36.0 g/dL 05/18/2025 10:46 AM EDT [facility] RDW 14.5 12.0 - 15.0 % 05/18/2025 10:46 AM EDT [facility] RDW Standard Deviation 49.1(H) 36.4 - 46.3 fL 05/18/2025 10:46 AM EDT [facility] Platelets 318 140 - 440 10*3/uL 05/18/2025 10:46 AM EDT [facility] MPV 11.3 9.4 - 12.3 fL 05/18/2025 10:46 AM EDT [facility] Neutrophil % 63.3 50.0 - 75.0 % 05/18/2025 10:46 AM EDT [facility] Immature Grans % 0.3 0.0 - 0.9 % 05/18/2025 10:46 AM EDT [facility] Lymphocyte % 28.5 20.0 - 44.0 % 05/18/2025 10:46 AM EDT [facility] Monocyte % 6.5 0.0 - 14.0 % 05/18/2025 10:46 AM EDT [facility] Eosinophil % 1.0 0.0 - 5.0 % 05/18/2025 10:46 AM EDT [facility] Basophil % 0.4 0.0 - 2.0 % 05/18/2025 10:46 AM EDT [facility] Neutrophil # 4.47 1.80 - 7.70 10*3/uL 05/18/2025 10:46 AM EDT [facility] Immature Grans # <0.03 0.00 - 0.03 10*3/uL 05/18/2025 10:46 AM EDT [facility] Lymphocyte # 2.00 1.00 - 4.75 10*3/uL 05/18/2025 10:46 AM EDT [facility] Monocyte # 0.50 0.00 - 0.60 10*3/uL 05/18/2025 10:46 AM EDT [facility] Eosinophil # 0.10 0.00 - 0.80 10*3/uL 05/18/2025 10:46 AM EDT [facility] Basophil # <0.03 0.00 - 0.20 10*3/uL 05/18/2025 10:46 AM EDT [facility] nRBC % 0.0 0 - 0 /100 WBCs 05/18/2025 10:46 AM EDT [facility] nRBC # <0.01 0.00 - 0.13 10*3/uL 05/18/2025 10:46 AM EDT [facility] Blood Structure of peripheral vein / Unknown Venipuncture / Unknown 05/18/2025 7:05 AM EDT 05/18/2025 8:49 AM EDT us Navidmikaela López Job LAB BLOOD ORDERABLES Final Resul t [facility] [address] [place] [id number], * (ABNORMAL) Basic Metabolic Panel (05/14/2025 8:15 AM EDT) NA 139 136 - 145 mmol/L 05/14/2025 12:03 PM EDT [facility] K 4.0 3.5 - 5.1 mmol/L 05/14/2025 12:03 PM EDT [facility] Cl 99 97 - 110 mmol/L 05/14/2025 12:03 PM EDT [facility] CO2 29 22 - 32 mmol/L 05/14/2025 12:03 PM EDT [facility] BUN 24(H) 8 - 23 mg/dL 05/14/2025 12:03 PM EDT [facility] Creatinine 0.52 0.50 - 1.12 mg/dL 05/14/2025 12:03 PM EDT [facility] Glucose 143(H) 60 - 99 mg/dL 05/14/2025 12:03 PM EDT [facility] Calcium 9.7 8.4 - 10.4 mg/dL 05/14/2025 12:03 PM EDT [facility] Anion Gap 15 >=0 05/14/2025 12:03 PM EDT [facility] eGFR >90 >=60 mL/min/1. 73m2 05/14/2025 12:03 PM EDT [facility] Comment:The estimated glomer ular filtration rate (eGFR) [...] peripheral vein / Unknown Venipuncture / Unknown 05/14/2025 8:15 AM EDT 05/14/2025 9:24 AM EDT [facility] - 05/14/2025 12:03 PM EDT NUR1\S\103\S\A\S\0156\S\S\BED\S\0156 us Lety Kaiser LAB BLOOD ORDERABLES Final Resul t [facility] [address] [place] [address] [address] [place] [address], * (ABNORMAL) CBC Auto Differential (05/14/2025 8:15 AM EDT) WBC 6.4 4.8 - 10.8 10*3/uL 05/14/2025 11:39 AM EDT [facility] RBC 4.12(L) 4.20 - 5.40 10*6/uL 05/14/2025 11:39 AM EDT [facility] Hemoglobin 12.2 11.7 - 15.5 g/dL 05/14/2025 11:39 AM EDT [facility] Hematocrit 37.3 35.7 - 45.8 % 05/14/2025 11:39 AM EDT [facility] MCV 90.5 81.0 - 99.0 fL 05/14/2025 11:39 AM EDT [facility] MCH 29.6 26.0 - 34.0 pg 05/14/2025 11:39 AM EDT [facility] MCHC 32.7 31.0 - 36.0 g/dL 05/14/2025 11:39 AM EDT [facility] RDW 14.3 12.0 - 15.0 % 05/14/2025 11:39 AM EDT [facility] RDW Standard Deviation 48.0(H) 36.4 - 46.3 fL 05/14/2025 11:39 AM EDT [facility] Platelets 309 140 - 440 10*3/uL 05/14/2025 11:39 AM EDT [facility] MPV 11.1 9.4 - 12.3 fL 05/14/2025 11:39 AM EDT [facility] Neutrophil % 62.1 50.0 - 75.0 % 05/14/2025 11:39 AM EDT [facility] Immature Grans % 0.2 0.0 - 0.9 % 05/14/2025 11:39 AM EDT [facility] Lymphocyte % 28.4 20.0 - 44.0 % 05/14/2025 11:39 AM EDT [facility] Monocyte % 7.7 0.0 - 14.0 % 05/14/2025 11:39 AM EDT [facility] Eosinophil % 1.1 0.0 - 5.0 % 05/14/2025 11:39 AM EDT [facility] Basophil % 0.5 0.0 - 2.0 % 05/14/2025 11:39 AM EDT [facility] Neutrophil # 3.96 1.80 - 7.70 10*3/uL 05/14/2025 11:39 AM EDT [facility] Immature Grans # <0.03 0.00 - 0.03 10*3/uL 05/14/2025 11:39 AM EDT [facility] Lymphocyte # 1.80 1.00 - 4.75 10*3/uL 05/14/2025 11:39 AM EDT [facility] Monocyte # 0.50 0.00 - 0.60 10*3/uL 05/14/2025 11:39 AM EDT [facility] Eosinophil # 0.10 0.00 - 0.80 10*3/uL 05/14/2025 11:39 AM EDT [facility] Basophil # <0.03 0.00 - 0.20 10*3/uL 05/14/2025 11:39 AM EDT [facility] nRBC % 0.0 0 - 0 /100 WBCs 05/14/2025 11:39 AM EDT [facility] nRBC # <0.01 0.00 - 0.13 10*3/uL 05/14/2025 11:39 AM EDT [facility] Blood Structure of peripheral vein / Unknown Venipuncture / Unknown 05/14/2025 8:15 AM EDT 05/14/2025 9:28 AM EDT us Lety Kaiser LAB BLOOD ORDERABLES Final Resul t [facility] [address] [place] [id number], [place] [phone] * (ABNORMAL) Basic Metabolic Panel (05/11/2025 6:05 AM EDT) NA 140 136 - 145 mmol/L 05/11/2025 10:38 AM EDT [facility] K 3.9 3.5 - 5.1 mmol/L 05/11/2025 10:38 AM EDT [facility] Cl 98 97 - 110 mmol/L 05/11/2025 10:38 AM EDT [facility] CO2 27 22 - 32 mmol/L 05/11/2025 10:38 AM EDT [facility] BUN 25(H) 8 - 23 mg/dL 05/11/2025 10:38 AM EDT [facility] Creatinine 0.50 0.50 - 1.12 mg/dL 05/11/2025 10:38 AM EDT [facility] Glucose 92 60 - 99 mg/dL 05/11/2025 10:38 AM EDT [facility] Calcium 9.7 8.4 - 10.4 mg/dL 05/11/2025 10:38 AM EDT [facility] Anion Gap 19 >=0 05/11/2025 10:38 AM EDT [facility] eGFR >90 >=60 mL/min/1. 73m2 05/11/2025 10:38 AM EDT [facility] Comment:The estimated glomer ular filtration rate (eGFR) [...] peripheral vein / Unknown Venipuncture / Unknown 05/11/2025 6:05 AM EDT 05/11/2025 7:45 AM EDT Narrative [facility] - 05/11/2025 10:38 AM EDT NUR1\S\103\S\A\S\0156\S\S\BED\S\0156 us Lety Kaiser LAB BLOOD ORDERABLES Final Resul t [facility] [address] [facility] [address] [place] [address], * (ABNORMAL) CBC Auto Differential (05/11/2025 6:05 AM EDT) WBC 6.6 4.8 - 10.8 10*3/uL 05/11/2025 10:09 AM EDT [facility] RBC 4.21 4.20 - 5.40 10*6/uL 05/11/2025 10:09 AM EDT [facility] Hemoglobin 12.4 11.7 - 15.5 g/dL 05/11/2025 10:09 AM EDT [facility] Hematocrit 37.2 35.7 - 45.8 % 05/11/2025 10:09 AM EDT [facility] MCV 88.4 81.0 - 99.0 fL 05/11/2025 10:09 AM EDT [facility] MCH 29.5 26.0 - 34.0 pg 05/11/2025 10:09 AM EDT [facility] MCHC 33.3 31.0 - 36.0 g/dL 05/11/2025 10:09 AM EDT [facility] RDW 14.4 12.0 - 15.0 % 05/11/2025 10:09 AM EDT [facility] RDW Standard Deviation 46.5(H) 36.4 - 46.3 fL 05/11/2025 10:09 AM EDT [facility] Platelets 292 140 - 440 10*3/uL 05/11/2025 10:09 AM EDT [facility] MPV 11.3 9.4 - 12.3 fL 05/11/2025 10:09 AM EDT [facility] Neutrophil % 60.2 50.0 - 75.0 % 05/11/2025 10:09 AM EDT [facility] Immature Grans % 0.3 0.0 - 0.9 % 05/11/2025 10:09 AM EDT [facility] Lymphocyte % 31.0 20.0 - 44.0 % 05/11/2025 10:09 AM EDT [facility] Monocyte % 7.3 0.0 - 14.0 % 05/11/2025 10:09 AM EDT [facility] Eosinophil % 0.9 0.0 - 5.0 % 05/11/2025 10:09 AM EDT [facility] Basophil % 0.3 0.0 - 2.0 % 05/11/2025 10:09 AM EDT [facility] Neutrophil # 3.98 1.80 - 7.70 10*3/uL 05/11/2025 10:09 AM EDT [facility] Immature Grans # <0.03 0.00 - 0.03 10*3/uL 05/11/2025 10:09 AM EDT [facility] Lymphocyte # 2.10 1.00 - 4.75 10*3/uL 05/11/2025 10:09 AM EDT [facility] Monocyte # 0.50 0.00 - 0.60 10*3/uL 05/11/2025 10:09 AM EDT [facility] Eosinophil # 0.10 0.00 - 0.80 10*3/uL 05/11/2025 10:09 AM EDT [facility] Basophil # <0.03 0.00 - 0.20 10*3/uL 05/11/2025 10:09 AM EDT [facility] nRBC % 0.0 0 - 0 /100 WBCs 05/11/2025 10:09 AM EDT [facility] nRBC # <0.01 0.00 - 0.13 10*3/uL 05/11/2025 10:09 AM EDT [facility] Blood Structure of peripheral vein / Unknown Venipuncture / Unknown 05/11/2025 6:05 AM EDT 05/11/2025 7:46 AM EDT us Lety Kaiser LAB BLOOD ORDERABLES Final Resul t [facility] [address] [facility] [address] [place] [address], [place] [phone] * Albumin (05/09/2025 11:29 AM EDT) Albumin 4.4 3.5 - 5.0 g/dL 05/09/2025 1:40 PM EDT [facility] Blood Structure of peripheral vein / Unknown Venipuncture / Unknown 05/09/2025 11:29 AM EDT 05/09/2025 11:29 AM EDT Narrative [facility] - 05/09/2025 1:40 PM EDT NUR1\S\103\S\A\S\0156\S\S\BED\S\0156 NUR1\S\103\S\A\S\0156\S\S\BED\S\0156 us Shanae Hahn [employer] [facility] BLOOD ORDERABLES Final Resul t [facility] [address] [place] [address], [place] [phone] * (ABNORMAL) Basic Metabolic Panel (05/09/2025 11:29 AM EDT) NA 139 136 - 145 mmol/L 05/09/2025 1:40 PM EDT [facility] K 4.4 3.5 - 5.1 mmol/L 05/09/2025 1:40 PM EDT [facility] Cl 95(L) 97 - 110 mmol/L 05/09/2025 1:40 PM EDT [facility] CO2 30 22 - 32 mmol/L 05/09/2025 1:40 PM EDT [facility] BUN 30(H) 8 - 23 mg/dL 05/09/2025 1:40 PM EDT [facility] Creatinine 0.55 0.50 - 1.12 mg/dL 05/09/2025 1:40 PM EDT [facility] Glucose 133(H) 60 - 99 mg/dL 05/09/2025 1:40 PM EDT [facility] Calcium 10.4 8.4 - 10.4 mg/dL 05/09/2025 1:40 PM EDT [facility] Anion Gap 18 >=0 05/09/2025 1:40 PM EDT [facility] eGFR 90 >=60 mL/min/1. 73m2 05/09/2025 1:40 PM EDT [facility] Comment:The estimated glomer ular filtration rate (eGFR) [...] 11:29 AM EDT 05/09/2025 11:29 AM EDT [facility] - 05/09/2025 1:40 PM EDT NUR1\S\103\S\A\S\0156\S\S\BED\S\0156 NUR1\S\103\S\A\S\0156\S\S\BED\S\0156 us Shanae Hahn [employer] LAB BLOOD ORDERABLES Final Resul t [facility] [address] [place] [id number], * (ABNORMAL) CBC Auto Differential (05/09/2025 11:29 AM EDT) WBC 8.6 4.8 - 10.8 10*3/uL 05/09/2025 2:14 PM EDT [facility] RBC 4.37 4.20 - 5.40 10*6/uL 05/09/2025 2:14 PM EDT [facility] Hemoglobin 13.1 11.7 - 15.5 g/dL 05/09/2025 2:14 PM EDT [facility] Hematocrit 39.1 35.7 - 45.8 % 05/09/2025 2:14 PM EDT [facility] MCV 89.5 81.0 - 99.0 fL 05/09/2025 2:14 PM EDT [facility] MCH 30.0 26.0 - 34.0 pg 05/09/2025 2:14 PM EDT [facility] MCHC 33.5 31.0 - 36.0 g/dL 05/09/2025 2:14 PM EDT [facility] RDW 14.4 12.0 - 15.0 % 05/09/2025 2:14 PM EDT [facility] RDW Standard Deviation 47.5(H) 36.4 - 46.3 fL 05/09/2025 2:14 PM EDT [facility] Platelets 325 140 - 440 10*3/uL 05/09/2025 2:14 PM EDT [facility] MPV 10.7 9.4 - 12.3 fL 05/09/2025 2:14 PM EDT [facility] Neutrophil % 74.6 50.0 - 75.0 % 05/09/2025 2:14 PM EDT [facility] Immature Grans % 0.4 0.0 - 0.9 % 05/09/2025 2:14 PM EDT [facility] Lymphocyte % 16.6(L) 20.0 - 44.0 % 05/09/2025 2:14 PM EDT [facility] Monocyte % 7.6 0.0 - 14.0 % 05/09/2025 2:14 PM EDT [facility] Eosinophil % 0.6 0.0 - 5.0 % 05/09/2025 2:14 PM EDT [facility] Basophil % 0.2 0.0 - 2.0 % 05/09/2025 2:14 PM EDT [facility] Neutrophil # 6.38 1.80 - 7.70 10*3/uL 05/09/2025 2:14 PM EDT [facility] Immature Grans # 0.03 0.00 - 0.03 10*3/uL 05/09/2025 2:14 PM EDT [facility] Lymphocyte # 1.40 1.00 - 4.75 10*3/uL 05/09/2025 2:14 PM EDT [facility] Monocyte # 0.70(H) 0.00 - 0.60 10*3/uL 05/09/2025 2:14 PM EDT [facility] Eosinophil # 0.10 0.00 - 0.80 10*3/uL 05/09/2025 2:14 PM EDT [facility] Basophil # <0.03 0.00 - 0.20 10*3/uL 05/09/2025 2:14 PM EDT [facility] nRBC % 0.0 0 - 0 /100 WBCs 05/09/2025 2:14 PM EDT [facility] nRBC # <0.01 0.00 - 0.13 10*3/uL 05/09/2025 2:14 PM EDT [facility] [facility] Blood Structure of peripheral vein / Unknown Venipuncture / Unknown 05/09/2025 11:29 AM EDT 05/09/2025 11:29 AM EDT Shanae Hahn G[employer] AD[employer] LAB BLOOD ORDERABLES Final Resul t Performing Organization Address City/State/[facility] Co de Phone Number [facility] [address] [id number], documented in this encounter Visit Diagnoses Not on filedocumented in this encounter Care Teams Human Resources Receptionist Relationship Specialty Start Date End Date Abhilash Bella MD [address] [place] [phone] PCP - General Internal Medicine 09/17/23 documented as of this encounter
--- OUTSIDE RECORDS SUMMARY | 2025-06-18 19:04 | XMS_ITS | Encounter Summary ---
Author Organization [facility] Address [address] [facility] [address] [place] [phone] Phone Care Team Providers Care Group Fitness Instructor Name Role Phone Abhilash Bella MD Primary Care Pr ovider Abhilash Bella MD Unavailable Encounter Details Date Type Department Care Team (Late st Contact Info) Description 11/14/2023 CRM System Generated VIRTUAL DEPARTMENT Jim Hobbs MD [address] [place] [address], [address] [place] [address] [email or web address] Social History Tobacco Use Types Packs/Day Years Used Date Smoking Tobacco: Never Passive Smoke Exposure: Never Smokeless Tobacco: Never Education Answer Date Recorded Are you interested in more education? Not on ryan e 03/13/2023 Are you concerned about learning? Not on file 03/13/2023 No 03/13/2023 No 03/13/2023 Digital Access Answer Date Recorded No 03/13/2023 No 03/13/2023 Reliable internet access at home? Not on file 03/13/2023 Device with a working camera? Not on file Comments Unknown Sex and Gender Information Value Date Recorded Sex Assigned at Not on file Legal Sex Female 5:27 AM EST Gender Identity Not on file Sexual Orientation Not on file documented as of this encounter Plan of Treatment Upcoming Encounters Date Type Department Care Team (Late st Contact Info) Description 06/26/2025 10:30 AM EST Follow-Up [facility] [address] [place] [address] Abhilash Bella MD [address] [place] [address] 06/30/2025 3:00 PM EST Follow-Up [facility] [address] [place] [address] Soila Lester, CLARISA [address] [place] [address] 09/03/2025 2:00 PM EST Office Visit [facility], [facility] [address] [facility] [address] [place] [address] Torrey Lucas MD [address] [place] [address] [address] [place] [address] documented as of this encounter Procedures Procedure Name Priority Date/Time Associated Diagnosis Comments OUTSIDE ECHO 11/14/2023 12:07 PM EDT documented in this encounter Results * Outside Echo Report Only (11/14/2023 12:07 PM EDT) 11/14/2023 4:02 PM EDT Narrative INFINITT RAD/CARD [facility] - 11/14/2023 4:02 PM EDT Summary * The LV ejection fraction is 60%. The left ventricular wall motion and systolic function are normal. Left ventricular filling pattern c/w diminished LV compliance. LV geometry demonstrates concentric hypertrophy. * Normal right ventricular size with normal function. * Trileaflet aortic valve. The aortic valve is mildly thickened * There is moderate mitral regurgitation. * Normal tricuspid valve. There is moderate tricuspid regurgitation. Moderate pulmonary HTN. Interpretation Detail Gen: Good quality images LV: The left ventricle is normal in size with normal systolic function. The LV ejection fraction is 60%. LV geometry demonstrates concentric hypertrophy. The left ventricular wall motion and systolic function are normal. The left ventricular filling pattern suggests diminished left ventricular diastolic compliance. LA: The left atrium is mildly dilated. LA M-mode: 3.80 cm. RV: The right ventricle is normal in size with normal function. RA: The right atrium is mildly dilated. MV: There is moderate mitral regurgitation. The mitral valve area is normal, MV area= 5.50 basketball scout and MV Area (p 1/2)= 5.50 basketball scout . The mitral valve is mildly thickened. There is mild mitral annular calcification. AV: The aortic valve is trileaflet. The aortic valve is mildly thickened. AV peak skrtisrh=401rx/sec. TV: The tricuspid valve is normal. There is moderate tricuspid regurgitation. PASP= 45 mmHg, RAP=5mmHg. PV: The pulmonic valve is normal. There is trace pulmonic regurgitation. Dara: There is a trivial loculated pericardial effusion around the right atrium. PA: The pulmonary artery is normal. IAS: The interatrial septum appears normal. Ao: The aorta is normal. Aortic dimensions - Sinus of Valsalva=3.10cm, Ascending=2.70cm, Arch=2.50cm, LVOT august=1.80cm. Cava: The inferior vena cava is normal. There is greater than 50% inspiratory collapse of the IVC. LV Aguilera Max Valve Velocities IVSd: 1.20cm 0.6-1.1cm AV: 133cm/sec PWd: 1.11cm 0.6-1.1cm TV: 316cm/sec LV Mass PV: 95cm/sec Linear: 162g LVOT: 82cm/sec LVMI: 111g/mA 50-95g/mA LV Diastolic Function LV Chamber E/A: 0.93 0.6-2 LVIDd: 4.10cm 3.7-5.6 cm E/e' med: 14.29 LVIDdI: 2.81cm/m2 E/e' lat: 12.50 LVIDs: 2.80cm 1.8-4.2 cm Decel: 136.00ms 168-232ms LVIDsI: 1.92cm/m2 Pulmonary RWT: 0.54 <0.42 RAP: 5mmHg PASP: 45mmHg Atria LA mmode: 3.80cm LA: 3.8cm LA length: 4.5cm Jim Hobbs M.D., [facility] Procedure Note Jim Hobbs MD - 11/14/2023 Summary * The LV ejection fraction is 60%. The left ventricular wall motion and systolic function are normal. Left ventricular filling pattern c/w diminished LV compliance. LV geometry demonstrates concentric hypertrophy. * Normal right ventricular size with normal function. * Trileaflet aortic valve. The aortic valve is mildly thickened * There is moderate mitral regurgitation. * Normal tricuspid valve. There is moderate tricuspid regurgitation. Moderate pulmonary HTN. Interpretation Detail Gen: Good quality images LV: The left ventricle is normal in size with normal systolic function. The LV ejection fraction is 60%. LV geometry demonstrates concentric hypertrophy. The left ventricular wall motion and systolic function are normal. The left ventricular filling pattern suggests diminished left ventricular diastolic compliance. LA: The left atrium is mildly dilated. LA M-mode: 3.80 cm. RV: The right ventricle is normal in size with normal function. RA: The right atrium is mildly dilated. MV: There is moderate mitral regurgitation. The mitral valve area is normal, MV area= 5.50 basketball scout and MV Area (p 1/2)= 5.50 basketball scout . The mitral valve is mildly thickened. There is mild mitral annular calcification. AV: The aortic valve is trileaflet. The aortic valve is mildly thickened. AV peak gbfiqsiy=432gx/sec. TV: The tricuspid valve is normal. There is moderate tricuspid regurgitation. PASP= 45 mmHg, RAP=5mmHg. PV: The pulmonic valve is normal. There is trace pulmonic regurgitation. Dara: There is a trivial loculated pericardial effusion around the right atrium. PA: The pulmonary artery is normal. IAS: The interatrial septum appears normal. Ao: The aorta is normal. Aortic dimensions - Sinus of Valsalva=3.10cm, Ascending=2.70cm, Arch=2.50cm, LVOT august=1.80cm. Cava: The inferior vena cava is normal. There is greater than 50% inspiratory collapse of the IVC. LV Aguilera Max Valve Velocities IVSd: 1.20cm 0.6-1.1cm AV: 133cm/sec PWd: 1.11cm 0.6-1.1cm TV: 316cm/sec LV Mass PV: 95cm/sec Linear: 162g LVOT: 82cm/sec LVMI: 111g/mA 50-95g/mA LV Diastolic Function LV Chamber E/A: 0.93 0.6-2 LVIDd: 4.10cm 3.7-5.6 cm E/e' med: 14.29 LVIDdI: 2.81cm/m2 E/e' lat: 12.50 LVIDs: 2.80cm 1.8-4.2 cm Decel: 136.00ms 168-232ms LVIDsI: 1.92cm/m2 Pulmonary RWT: 0.54 <0.42 RAP: 5mmHg PASP: 45mmHg Atria LA mmode: 3.80cm LA: 3.8cm LA length: 4.5cm Jim Hobbs M.D., [facility] Jim Hobbs MD CV ECHO ORDERABLES Final Result [facility] [place] [address] documented in this encounter Visit Diagnoses Not on filedocumented in this encounter Additional Health Concerns Assessment Noted Time PHQ-9 Depression Total Score: 0 03/28/20 1:40 PM EDT PHQ-2 Depression Total Score: 0 03/28/20 1:40 PM EDT documented as of this encounter Care Teams Group Fitness Instructor Relationship Specialty Start Date End Date Abhilash Bella MD [address] [place] [phone] [email or web address] PCP - General Internal Medicine 03/06/23 Abhilash Bella MD [address] [place] [phone] [email or web address] Insurance Assigned Provider 11/09/24 documented as of this encounter Additional Source Comments The information contained in this document represents components of the legal health record. It is not the complete legal health record.[facility]
--- OUTSIDE RECORDS SUMMARY | 2025-06-18 19:04 | XMS_ITS | Encounter Summary ---
Author Organization [facility] Address [address] [facility] [address] [place] [phone] Phone Care Team Providers Care Driver Merchandiser Name Role Phone Abhilash Bella MD Primary Care Pr ovider Abhilash Bella MD Unavailable Encounter Details Date Type Department Care Team (Late st Contact Info) Description 12/20/2023 CRM System Generated VIRTUAL DEPARTMENT Myra Lester PA-C [address] [place] [phone] Social History Tobacco Use Types Packs/Day Years [...] Info) Description 06/26/2025 10:30 AM EST Follow-Up [facility] [address] [place] [address] Abhilash Bella MD [address] [place] [address] 06/30/2025 3:00 PM EST Follow-Up [facility] [address] [place] [address] Soila Lester CNP [address] [place] [address] 09/03/2025 2:00 PM EST Office Visit [facility], [facility] [address] [facility] [address] [place] [address] Torrey Lucas MD [address] [place] [address] [address] [place] [address] documented as of this encounter Procedures Procedure Name Priority Date/Time Associated Diagnosis Comments BI MAMMOGRAM DIAGNOSTIC (RIGHT) 12/20/2023 3:40 PM EDT documented in this encounter Results * Mammogram Diagnostic (Right) (12/20/2023 3:40 PM EDT) Anatomical Region Laterality Modality Breast Right, Breast Bilateral Right B reast Diagnostic 12/20/2023 3:45 PM EDT Narrative 12/20/2023 3:47 PM EDT Impression: Stable right microcalcifications. Six-month follow-up bilateral diagnostic mammogram is recommended, which should include routine views of both breasts and magnification views of the right breast. BIRADS 3 Probably Benign. Parenchymal Pattern: Your breast Parenchymal pattern is heterogeneously dense, which may obscure small masses Follow-up recommendation: mammogram in 6 months. Per [facility] protocol, the patient was entered into a reminder system with target date for the next mammogram. The patient was sent a letter with the results of the exam and follow-up recommendation. History: Follow-up right microcalcifications. Comparison: Magnification views dated 05/24/2023. Technique: DIGITAL DIAGNOSTIC RIGHT MAMMOGRAM: Findings: Magnification views of the right breast were submitted. There is a stable group of fairly coarse calcifications in the right upper outer breast, unchanged compared to 05/24/2023. scattered coarse calcifications are seen elsewhere on the right, also stable. Vascular calcifications are also noted. Electronically signed by: Tracey Saleh MD Dictated: 12/20/2023 15:47Transcribed by: Procedure Note Tracey Saleh MD - 12/20/2023 Impression: Stable right microcalcifications. Six-month follow-up bilateraldiagnostic mammogram is recommended, which should include routine views ofboth breasts and magnification views of the right breast. BIRADS 3 Probably Benign. Parenchymal Pattern: Your breast Parenchymal pattern is heterogeneouslydense, which may obscure small masses Follow-up recommendation: mammogram in 6 months. Per [facility] protocol, the patient was enteredinto a reminder system with target date for the next mammogram. Thepatient was sent a letter with the results of the exam and follow-uprecommendation. History: Follow-up right microcalcifications. Comparison: Magnification views dated 05/24/2023. Technique: DIGITAL DIAGNOSTIC RIGHT MAMMOGRAM: Findings: Magnification views of the right breast were submitted. There is a stable group of fairly coarse calcifications in the right upperouter breast, unchanged compared to 05/24/2023. scattered coarsecalcifications are seen elsewhere on the right, also stable. Vascularcalcifications are also noted. Electronically signed by: Tracey Saleh MD Dictated: 12/20/2023 15:47Transcribed by: us Myra Lester PA-C IMG MG EXAMS Final Result documented in this encounter Visit Diagnoses Not on filedocumented in this encounter Additional Health Concerns Assessment Noted Time PHQ-9 Depression Total Score: 0 03/28/20 23 1:40 PM EDT PHQ-2 Depression Total Score: 0 03/28/20 1:40 PM EDT documented as of this encounter Care Teams Driver Merchandiser Relationship Specialty Start Date End Date Abhilash Bella MD [address] [place] [address] PCP - General Internal Medicine 03/06/23 Abhilash Bella MD [address] [place] [address] Insurance Assigned Provider 11/09/24 documented as of this encounter Additional Source Comments The information contained in this document represents components of the legal health record. It is not the complete legal health record.[facility]
--- OUTSIDE RECORDS SUMMARY | 2025-06-18 19:04 | XMS_ITS | Clinical Summary ---
Author Organization [facility] Address [address] [facility] [address] [place] [address] Phone Care Team Providers Care Assistant Director Of Security Name Role Phone Abhilash Bella MD Primary Care Pr ovider Abhilash Bella MD Unavailable Allergies No known active allergies Medications amLODIPine (NORVASC) 5 MG tablet Take 1 tablet (5 mg total) by mouth every morning. After eating breakfast 30 tablet 5 Active aspirin 81 mg chewable tablet Take 1 tablet (81 mg total) by mouth every morning. After eating breakfast 30 tablet 5 Active atorvastatin (LIPITOR) 40 MG tablet Take 1 tablet (40 mg total) by mouth nightly at bedtime. 30 tablet 5 Active calcium carbonate-vitamin D3 1,250 mg (500 mg elemental)-400 units per tablet Take 1 tablet by mouth 2 (two) times a day. At 2pm and with dinner 60 tablet 5 Active cyanocobalamin, vitamin B-12, 1000 MCG tablet Take 0.5 tablets (500 mcg total) by mouth every morning. After eating breakfast 30 tablet 5 Active docusate sodium (COLACE) 100 MG capsule Take 1 capsule (100 mg total) by mouth 3 (three) times a day as needed for mild constipation. 90 capsule 5 Active famotidine (PEPCID) 20 MG tablet Take 1 tablet (20 mg total) by mouth every evening. AT DINNER 30 tablet 5 Active fluocinonide 0.05 % external solutionIndication s:Seborrheic dermatitis Apply topically 2 (two) times a day. To scalp Sunday - weekends off repeat as needed 60 mL 5 Active hydroCHLOROthiazid e 12.5 mg capsule Take 1 capsule (12.5 mg total) by mouth every morning. After eating breakfast 30 capsule 5 Active ketoconazole (NIZORAL) 2 % shampooIndications :Seborrheic dermatitis Apply topically once a week. Apply to damp skin, lather, leave on 5 minutes, and rinse 120 mL Active levETIRAcetam (KEPPRA) 500 MG tablet Take 1 tablet (500 mg total) by mouth 2 (two) times a day. After eating breakfast and after dinner 60 tablet 5 Active levothyroxine (SYNTHROID, LEVOTHROID) 50 MCG tablet Take 1 tablet (50 mcg total) by mouth daily before breakfast. 30 tablet 5 Active metoprolol succinate (TOPROL-XL) 25 MG 24 hr tablet Take 0.5 tablets (12.5 mg total) by mouth every morning. After eating breakfast 15 tablet 5 Active nitroglycerin (NITROSTAT) 0.[address] 1 tablet (0.4 mg total) under the tongue every 5 (five) minutes as needed for chest pain. 30 tablet 5 Active olmesartan (BENICAR) 20 mg tablet Take 1 tablet (20 mg total) by mouth every morning. After eating breakfast 30 tablet 5 Active omeprazole (PRILOSEC) 20 MG capsule Take 1 capsule (20 mg total) by mouth daily. At 2pm 30 capsule 5 Active venlafaxine (EFFEXOR-XR) 150 MG 24 hr capsule Take 1 capsule (150 mg total) by mouth every morning. After eating breakfast 30 capsule 5 Active carbidopa-levodopa (SINEMET) 25-100 mg per tablet Take 2 tablets by mouth 3 (three) times a day. 180 tablet 5 Active carbidopa-levodopa (SINEMET CR) 25-100 mg per CR tablet Take 1 tablet by mouth nightly at bedtime. 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 60 tablet 1 5 Active amLODIPine (NORVASC) 2.5 MG tablet Take 1 tablet (2.5 mg total) by mouth daily. qhs 30 tablet 5 5 Active meloxicam (MOBIC) 15 MG tabletIndications: Primary osteoarthritis of both hips,Osteoarthriti s of spine with radiculopathy, lumbar region,Osteoarthri tis of sacroiliac joint Take 1 tablet (15 mg total) by mouth daily. 30 tablet 1 5 Active gabapentin (NEURONTIN) 100 MG capsule Take 1 capsule (100 mg total) by mouth 3 (three) times a day. For sciatica pain 90 capsule 3 5 Active meloxicam (MOBIC) 7.5 MG tabletIndications: Primary osteoarthritis involving multiple joints TAKE ONE TABLET BY MOUTH DAILY anti-inflamma tion and pain 30 tablet 2 5 Active Active Problems Problem Noted Date Diagnosed Date Vision changes 03/11/2025 Acute on chronic heart failu re, unspecified heart failure type 12/19/2024 Overview (05/07/2025): Images from the original note were not included. Seeing Cardio. 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 Neg RF. Neg Lyme test 07/29 Started on Prednisone. Referred to Rheum. Hip pain 04/12/2024 Overview (04/12/2024): Neg Pelvic bones CT/ X rays 04/29. ER History of seizures 02/27/2024 Overview (02/27/2024): On Keppra. Seeing Dr Waldrop Type 2 diabetes mellitus, [facility] long-term current use of insulin 09/10/2023 Overview (09/10/2023): Ha1c 6.8 Abnormal mammogram 05/25/2023 Overview (12/20/2023): 05/28: diagnostic MMG: Impression: Probably benign right breast calcification. Magnification views of the right breast in 6 months recommended. 12/27: Diag MMG Impression: Stable right microcalcifications. Six-month follow-up bilateral diagnostic mammogram is recommended, which should include routine views of both breasts and magnification views of the right breast. BIRADS 3 Probably Benign. Parkinson's disease 04/05/2023 Overview (04/05/2023): Seeing Neuro. S/P drug eluting coronary stent placement 2022 High cholesterol 04/05/2023 History of [place] (myocardial infarction) 03/28/2023 Overview (11/19/2023): 2017 s/p cardiac stenting [facility] She is a 83-year-old white female with known coronary artery disease prior PCI with ALVINO to mid and proximal LAD total of 3 stents in 2016 and redo LAD stent in 2017 unclear whether that was for ISR or a de kristie lesion. ECHO 11/27: EF 60% Other sleep apnea 03/28/2023 Overview (03/28/2023): On CPAP Cerebral aneurysm 03/28/2023 Overview (12/19/2024): Being [place] by neuro .. [place] [facility]. Having brain scans every 5 years. Last 2019 per son/Pt. Referred to Local Neurology 03/28. [employer] OF [employer]STRU[employer] Neuro eval 03/29 Head and neck CTA 07/29: Stable. ER Being monitored in [place]. Dr Miranda Benign essential hypertension 03/28/2023 Fall 03/20/2023 Overview (03/20/2023): Neg C spine CT 07/27 Cognitive impairment 03/20/2023 Overview (02/27/2024): Seeing Neuro. 07/28. Dr Waldrop Humerus fracture 03/20/2023 Overview (09/10/2023): Had PT in the past Headache 05/25/2006 Overview (03/20/2023): Neg Head CT 07/27 Hypothyroidism 05/25/2006 Overview (09/26/2014): Hypothyroidism Osteopenia 05/25/2006 Overview (04/10/2023): Osteopenia; dexa 2003 , t-score -1.9 BD 04/28 Resolved Problems Problem Noted Date Diagnosed Date Resolved Date Seborrheic dermatitis 05/31/20232023 Overview (05/31/2023): 04/19/23: Start applying topical fluocinonide 0.05% soln to scalp BID ketoconazole 2% shampoo 2-3x weekly Personal history of fall 04/05/202301/2024 Atherosclerosis of [place] co ronary artery of [place] heart without angina pectoris 04/05/2023 Overview (06/11/2024): See [place] above Encounters Date Type Department Care Team Description 06/15/[address] [phone] Abhilash Lima MD 05/07/[address] [address] Abhilash Lima MD Medication Refill 05/05/2025 1:15 PM EDT Telemedicine - audio only [address] [address] Abhilash Lima MD Sciatica, unspecified laterality (Primary Dx) 05/04/[address] [address] Abhilash Lima MD MRI/ Requested call back 05/04/2025 Telemedicine - audio only [address] [address] Abhilash Lima MD Sciatica of right side (Primary Dx) 05/04/2025 Orders Only [address] [address] Abhilash Lima MD 05/02/2025 Telemedicine - audio only [facility] [address] [place] [phone] Mariza Vogt NP Lumbar radiculopathy (Primary Dx) 05/01/2025 Telephone [facility] [address] [place] [address] Soila Lester, SENIOR BUYER Results 05/01/2025 Refill [facility] [address] [place] [address] Abhilash Lima MD Medication Refill 04/28/2025 8:45 AM EDT Telemedicine - audio only [address] [address] Abhilash Lima MD Essential hypertension (Primary Dx); Hyponatremia 04/28/2025 Orders Only [address] [address] Abhilash Lima MD Hyponatremia (Primary Dx) 04/27/2025 3:30 PM EDT Follow-Up [address] [address] Soila Lester CNP PMR (polymyalgia rheumatica) (Primary Dx); 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; Osteoarthritis of spine with radiculopathy, lumbar region; Osteoarthritis of sacroiliac joint; Primary osteoarthritis of both hips 04/27/2025 3:30 AM EDT Nurse Only [address] [address] PMR (polymyalgia rheumatica); 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; Primary osteoarthritis involving multiple joints 04/14/2025 Orders Only [address] [address] Abhilash Lima MD 04/13/[address] [address] Abhilash Lima MD Medication Refill 04/13/[address] [address] Abhilash Lima MD 04/10/2025 Orders Only [address] [address] Abhilash Lima MD PMR (polymyalgia rheumatica); 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 03/31/2025 Orders Only [address] [address] Abhilash Lima MD Seborrheic dermatitis; Primary osteoarthritis involving multiple joints 03/22/[address] [address] Emiliano Oneal MD Medication Refill 03/19/[address] [address] Soila Lester CNP Medication Refill from Last 3 Months Immunizations Immunization Administration Dates Next Due COVID-19, Unspecified Formulation 2021,06/27/2021,10/19/2020,2020 Influenza High-Dose Quadriva lent Preservative Free IM 04/26/2023 Influenza High-Dose Trivalen t Preservative Free IM 05/14/2024,05/08/2022,04/12/2021,2019 Influenza Quadrivalent Adjuv anted Preservative Free IM 04/26/2023 Influenza, Unspecified Formulation 05/08/2022,,04/19/2020 Pneumococcal conjugate PCV20 09/10/2023 RSV Vaccine (bivalent) 09/21/2023 Td, unspecified formulation 07/28/2022 Tdap 07/28/2022 Zoster recombinant 11/20/2023,09/21/2023 Social History Tobacco Use Types Packs/Day Years Used Date Smoking Tobacco: Never Passive Smoke Exposure: Never Smokeless Tobacco: Never Tobacco Cessation:Counseling Given: Not Answered Education Answer Date Recorded Are you interested [...] on file Sexual Orientation Not on file Last Filed Vital Signs Vital Sign Reading Time Taken Comments Blood Pressure 137/49 04/27/2025 3:25 PM EDT Pulse 64 04/27/2025 3:45 PM EDT Temperature 36.5 C (97.7 F) 04/27/2025 3:25 PM EDT Respiratory Rate 16 04/27/2025 3:25 PM EDT Oxygen Saturation 99% 04/27/2025 3:25 PM EDT Inhaled Oxygen Concentration - - Weight 54.5 kg (120 lb 1.6 oz) 04/27/2025 3:25 P M EDT Height 149.9 cm (4' 11 ) 04/27/2025 3:25 PM EDT Body Mass Index 24.26 04/27/2025 3:25 PM EDT Plan of Treatment Upcoming Encounters Date Type Department Care Team (Late st Contact Info) Description 06/26/2025 10:30 AM EST Follow-Up [address] [address] Abhilash Bella MD [address] [place] [phone] 06/30/2025 3:00 PM EST Follow-Up [facility] [address] [place] [address] Soila Lester, SENIOR BUYER [address] [place] [address] 09/03/2025 2:00 PM EST Office Visit [facility], [facility] [address] [phone] Torrey Lucas MD [address] [place] [phone] Health Maintenance Due Date Last Done Comments INFLUENZA VACCINE (#1) 2025 , 04/26/2023, 04/26/2023, Additional history exists COVID-19 VACCINE ( season) 2025 11/22/2021, 11/22/2021, 06/27/2021, Additional history exists DEPRESSION SCREENING 06/11/2025 06/11/2024, 03/28/20 23 HEMOGLOBIN A1C 09/11/2025 03/11/2025, 05/0 04/2025, 06/11/2024, Additional history exists BLOOD PRESSURE 10/25/2025 04/27/2025 TSH LEVEL 12/12/2025 12/12/2024, 01/2024, 02/27/2024, Additional history exists DIABETIC EYE EXAM 03/10/2026 03/10/2025, 02/27/2024 CREATININE LEVEL 04/27/2026 04/27/2025, 04/2025, 06/11/2024, Additional history exists POTASSIUM LEVEL 04/27/2026 04/27/2025, 04/2025, 06/11/2024, Additional history exists Adult Td,Tdap Booster 07/28/2032 07/28/2022, 022 OSTEOPOROSIS SCREENING INITIAL (ONE-TIME) Completed 04/10/2023, 10/13/2021 PNEUMOCOCCAL VACCINES (50+ years) Completed 09/10/2023 RSV VACCINE Completed 09/21/2023 ZOSTER VACCINES Completed 11/20/2023, 09/21/2023 HEPATITIS A VACCINES Aged Out No long er eligible based on patient's age to complete this topic HIB VACCINES Aged Out No longer eligi ble based on patient's age to complete this topic IPV VACCINES Aged Out No longer eligi ble based on patient's age to complete this topic MENINGOCOCCAL VACCINES (ACWY) Aged Out No longer eligible based on patient's age to complete this topic MENINGOCOCCAL VACCINES (B) Aged Out N o longer eligible based on patient's age to complete this topic Medical Devices Not on file Procedures Procedure Name Priority Date/Time Associated Diagnosis Comments MRI LUMBAR SPINE Routine 05/05/2025 10:3 1 AM EDT Sciatica OUTSIDE LAB Routine 05/04/2025 5:12 PM EDT BMP/RFP Routine 04/27/2025 4:18 PM EDT Primary osteoarthritis involving multiple joints HIGH SENSITIVE CRP NON CARDIO Routine 04/27/2025 4:18 PM EDT PMR (polymyalgia 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 SEDIMENTATION RATE (ESR) Routine 04/27/2025 4:18 PM EDT PMR (polymyalgia rheumatica) [facility] (current) use of systemic steroids HEMOGLOBIN A1C Routine 03/11/2025 6:31 PM EDT Type 2 diabetes mellitus without complication, without long-term current use of insulin 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 rheumatica 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 HM DIABETES EYE EXAM FOR RESULT ENTRY ONLY Routine 03/10/2025 TSH WITH REFLEX Routine 12/12/2024 9:49 AM EDT BD DXA AXIAL (SPINE) WITH HIP Routine 04/10/2023 2:36 PM EDT Osteopenia from Last 3 Months or Most Recently Relevant to Health Maintenance Results * Outside Lab (05/04/2025 5:12 PM EDT) Historical Provider MD LAB BLOOD BKR ORDERABLES Final Result * (ABNORMAL) BMP/RFP (04/27/2025 4:18 PM EDT) Sodium 130(L) 135 - 146 mEq/L [facility] [employer] [facility] Potassium 4.3 3.5 - 5.3 mEq/L [facility] Chloride 88(L) 98 - 107 mEq/L [facility] [employer] [facility] CO2 32(H) 20 - 31 mEq/L [facility] Anion Gap 10 4 - 14 [facility] Glucose 151(H) 70 - 99 mg/dL [facility] BUN 28(H) 6 - 20 mg/dL [facility] Creatinine 0.7 0.6 - 1.1 mg/dL [facility] GFR 90 >60 mL/min/1.7 3m^2 [facility] Calcium 9.7 8.4 - 10.2 mg/dL [facility] Corrected Calcium 9.4 8.4 - 10.2 mg/dL [facility] Albumin 4.4 3.3 - 4.9 g/dL [facility] Phosphorous 4.2 2.4 - 4.6 mg/dL [facility] Blood 04/27/2025 4:18 PM EDT 04/27/2025 6:21 PM EDT Narrative Resulting Agency Comment No Soila E Lester SENIOR BUYER LAB BLOOD BKR ORDERABLES Fin al Result Performing Organization Address City/[facility] Co de Phone Number [facility] [address] [facility] [address] * High Sensitive CRP Non Cardio (04/27/2025 4:18 PM EDT) [facility] High Sensitive CRP Non-Cardio 0.7 0.0 - 7.9 mg/L [facility] Blood 04/27/2025 4:18 PM EDT 04/27/2025 6:21 PM EDT Narrative Resulting Agency Comment No Soila Lester [facility] LAB BLOOD BKR ORDERABLES Fin al Result Performing Organization Address [facility] Co de Phone Number [facility] [address] [place] [address] * Sedimentation rate (ESR) (04/27/2025 4:18 PM EDT) [facility] Sed Rate 14 0 - 30 mm/hr [facility] Blood 04/27/2025 4:18 PM EDT 04/27/2025 6:21 PM EDT Narrative Resulting Agency Comment No Soila Guzman Lester [facility] LAB BLOOD BKR ORDERABLES Fin al Result Performing Organization Address [facility] Co de Phone Number [facility] [address] [facility] [address] * (ABNORMAL) Hemoglobin A1c (03/11/2025 6:31 PM EDT) [facility] % HGB A1C 7.1(H) 0.0 - 5.6 % [facility] Comment: </=5.6 - Normal 5.7 - 6.4 - Increased diabetes risk >/= 6.5 - Suggests diabetes </= 7.0 - ADA therapeutic goal when diabetes is present, this target should be relaxed for some individuals depending on age, state of health and risk for low blood sugar. Mean Glucose 150 mg/dL [facility] Blood 03/11/2025 6:31 PM EDT 03/11/2025 6:31 PM EDT Narrative Resulting Agency Comment No Emiliano Oneal MD LAB BLOOD BKR ORDERABLES Final Result Performing Organization Address [facility] Co de Phone Number [facility] [address] [place] [address] [address] * DIABETES EYE EXAM FOR RESULT ENTRY ONLY (03/10/2025) HM EYE EXAM Referred Historical Provider HEALTH MAINTENANCE Final Result * TSH with reflex (12/12/2024 9:49 AM EDT) TSH 3rd Gen 3.09 0.35 - 5.50 uIU/mL [facility] 12/12/2024 9:49 AM EDT 12/12/2024 3:34 PM EDT Narrative Resulting Agency Comment No Abhilash Bella MD LAB BLOOD BKR OR DERABLES Final Result Performing Organization Address [facility] Co de Phone Number [facility] [address] [place] [address] * DXA Spine and Hip (04/10/2023 2:36 PM EDT) Anatomical Region Laterality Modality Bone Density Bone Density 04/10/2023 2:36 PM EDT Narrative 04/10/2023 2:36 PM EDT History: Hypothyroidism. Levothyroxine 4 therapy. History of right humeral fracture Technique: BONE DENSITOMETRY: Scans of the lumbar spine and left hip were performed on a [employer] SL unit. W.H.O. Classification is based on the lowest measured density at the spine, femoral neck, or total hip. T score between -1.0 and -2.5 classified as osteopenia, and below -2.5 classified as osteoporosis. This classification has prognostic significance with respect to postmenopausal women and older men. Findings: Bone mineral density measurements and associated T and Z scores, respectively are as follows: Lumbar spine: L1-L4 BMD: 1.168 g/cm2 T-Score: 1.1 Z-Score: 3.9 Left femoral neck: BMD: 0.671 g/cm2 T-Score: -1.6 Z-Score: 0.9 Left hip total: BMD: 0.816 g/cm2 T-Score: -1.0 Z-Score: 1.2 Lowest measured bone density places the patient in the W.H.O osteopenic range. Impression: Osteopenia Ten year fracture risk Major osteoporotic fracture 14 percent Hip fracture 3.9 percent Electronically signed by: Nichole Hahn MD Dictated: 04/10/2023 14:36Transcribed by: Procedure Note Nida Hahn MD - 04/10/2023 History: Hypothyroidism. Levothyroxine 4 therapy. History of right humeral fracture Technique: BONE DENSITOMETRY: Scans of the lumbar spine and left hip were performed on a [employer] SL unit. W.H.O. Classification is based on the lowest measured density at the spine, femoral neck, or total hip. T score between -1.0 and -2.5 classified as osteopenia, and below -2.5 classified as osteoporosis. This classification has prognostic significance with respect to postmenopausal women and older men. Findings: Bone mineral density measurements and associated T and Z scores, respectively are as follows: Lumbar spine: L1-L4 BMD: 1.168 g/cm2 T-Score: 1.1 Z-Score: 3.9 Left femoral neck: BMD: 0.671 g/cm2 T-Score: -1.6 Z-Score: 0.9 Left hip total: BMD: 0.816 g/cm2 T-Score: -1.0 Z-Score: 1.2 Lowest measured bone density places the patient in the W.H.O osteopenic range. Impression: Osteopenia Ten year fracture risk Major osteoporotic fracture 14 percent Hip fracture 3.9 percent Electronically signed by: Nichole Hahn MD Dictated: 04/10/2023 14:36Transcribed by: Myra MAGDALENO BD BONE DENSITY DEXA Final Result from Last 3 Months or Most Recently Relevant to Health Maintenance Insurance MEDICARE PART A & B [facility] MEDICARE PART A & B [facility] MEDICARE PART A & B [facility] Advance Directives For more information, please contact: [phone] (9AM - 5PM [facility], Sunday-Sunday) Documents on File Type Date Recorded Patient Regulatory Coordinator Expl anation MOLST 03/10/2025 MOL Care Teams Assistant Director Of Security Relationship Specialty Start Date End Date Abhilash Bella MD [address] [place] [id number] [email or web address] PCP - General Internal Medicine 03/06/23 Abhilash Bella MD [address] [place] [phone] [email or web address] Insurance Assigned Provider 11/09/24 Additional Source Comments The information contained in this document represents components of the legal health record. It is not the complete legal health record.[facility]
--- OUTSIDE RECORDS SUMMARY | 2025-06-18 19:04 | XMS_ITS | Encounter Summary ---
Author Organization [facility] Address [address] [facility] [address] [place] [address] Phone Care Team Providers Care Armature Winder Repair Helper Name Role Phone Abhilash Bella MD Primary Care Pr ovider Abhilash Bella MD Unavailable Encounter Details Date Type Department Care Team (Late st Contact Info) Description 07/10/2024 CRM System Generated VIRTUAL DEPARTMENT Abhilash Bella MD [address] [place] [phone] Social History Tobacco Use Types Packs/Day Years [...] Info) Description 06/26/2025 10:30 AM EST Follow-Up [facility] [address] [place] [address] Abhilash Bella MD [address] [place] [address] 06/30/2025 3:00 PM EST Follow-Up [facility] [address] [place] [address] Soila Lester CNP [address] [place] [address] [email or web address] 09/03/2025 2:00 PM EST Office Visit [facility], [facility] [address] [facility] [address] [place] [address] Torrey Lucas MD [address] [place] [address] [address] [place] [address] documented as of this encounter Procedures Procedure Name Priority Date/Time Associated Diagnosis Comments BI MAMMOGRAM DIAGNOSTIC (BILATERAL) 07/10/2024 2:57 PM EST documented in this encounter Results * Mammogram Diagnostic (Bilateral) (07/10/2024 2:57 PM EST) Anatomical Region Laterality Modality Breast Left, Breast Right, Breast Bilateral Bila teral Breast Diagnostic 07/10/2024 3:16 PM EST Narrative 07/10/2024 3:16 PM EST Type:MG 3D DIAGNOSTIC MAMMO BILATERAL FOLLOW-UP [id number] Date/Time: 07/10/2024 Ordering Provider: Abhilash Bella Testing performed through, [address] [address] Impression: STABLE RIGHT BREAST CALCIFICATIONS. STABLE OVERALL BILATERAL MAMMOGRAPHIC PATTERN. RECOMMEND DIAGNOSTIC BILATERAL MAMMOGRAM WITH MAGNIFICATION VIEWS OF THE RIGHT BREAST IN 1 YEAR'S TIME. PER [facility] PR[facility], THE PATIENT WAS ENTERED INTO A REMINDER SYSTEM WITH TARGET DATE FOR THE NEXT MAMMOGRAM, AND PATIENT WAS SENT A LETTER WITH THE RESULTS OF THE EXAM WITH FOLLOW-UP RECOMMENDATION. BIRADS 2 Benign finding(s). OTHER RECOMMENDATION: diagnostic mammogram. History: Six-month follow-up of right breast calcifications. Annual examination. Comparison: Mammograms dating back to August 15, 2016 Technique: DIAGNOSTIC BILATERAL MAMMOGRAM AND TOMOGRAM Routine mammographic and tomographic imaging of both breasts, as well as magnification mammographic views of the right breast in CC and lateral projections Findings: PARENCHYMAL PATTERN The breasts are heterogeneously dense, which may obscure small masses Calcifications in question in the lateral slightly superior right breast at the middle to posterior depth have not progressed, appearing grossly stable dating back to August 19, 2019. There is no evidence of dominant mass, focal architectural distortion, skin thickening, nipple retraction, or new/progressive suspicious clustered microcalcifications. This examination was reviewed with CAD. Electronically signed by: Joe Huerta MD Dictated: 07/10/2024 15:16Transcribed by: Procedure Note Joe Huerta MD - 07/10/2024 Type:MG 3D DIAGNOSTIC MAMMO BILATERAL FOLLOW-UP [id number] Date/Time: 07/10/2024 Ordering Provider: Abhilash Bella Testing performed through, [address] [id number] Impression: STABLE RIGHT BREAST CALCIFICATIONS. STABLE OVERALL BILATERAL MAMMOGRAPHICPATTERN. RECOMMEND DIAGNOSTIC BILATERAL MAMMOGRAM WITH MAGNIFICATIONVIEWS OF THE RIGHT BREAST IN 1 YEAR'S TIME. PER [facility] PROT[facility]OL, THE PATIENT WAS ENTEREDINTO A REMINDER SYSTEM WITH TARGET DATE FOR THE NEXT MAMMOGRAM, ANDPATIENT WAS SENT A LETTER WITH THE RESULTS OF THE EXAM WITH FOLLOW-UPRECOMMENDATION. BIRADS 2 Benign finding(s). OTHER RECOMMENDATION: diagnostic mammogram. History: Six-month follow-up of right breast calcifications. Annualexamination. Comparison: Mammograms dating back to August 15, 2016 Technique: DIAGNOSTIC BILATERAL MAMMOGRAM AND TOMOGRAM Routine mammographic and tomographic imaging of both breasts, as well asmagnification mammographic views of the right breast in CC and lateralprojections Findings: PARENCHYMAL PATTERN The breasts are heterogeneously dense, which mayobscure small masses Calcifications in question in the lateral slightly superior right breastat the middle to posterior depth have not progressed, appearing grosslystable dating back to August 19, 2019. There is no evidence of dominant mass, focal architectural distortion,skin thickening, nipple retraction, or new/progressive suspiciousclustered microcalcifications. This examination was reviewed with CAD. Electronically signed by: Joe Huerta MD Dictated: 07/10/2024 15:16Transcribed by: Abhilash Bella MD IMG MG EXAMS Final Result documented in this encounter Visit Diagnoses Not on filedocumented in this encounter Additional Health Concerns Assessment Noted Time PHQ-9 Depression Total Score: 0 03/28/20 1:40 PM EDT PHQ-2 Depression Total Score: 2 06/11/20 24 12:26 PM EST documented as of this encounter Care Teams Armature Winder Repair Helper Relationship Specialty Start Date End Date Abhilash Bella MD [address] [place] [address] PCP - General Internal Medicine 03/06/23 Abhilash Bella MD [address] [place] [address] [email or web address] Insurance Assigned Provider 11/09/24 documented as of this encounter Additional Source Comments The information contained in this document represents components of the legal health record. It is not the complete legal health record.[facility]
--- OUTSIDE RECORDS SUMMARY | 2025-06-18 19:04 | XMS_ITS | Encounter Summary ---
Author Organization [facility] Address [address] [facility] [address] [place] [address] Phone Care Team Providers Care Rug Repairer Name Role Phone Abhilash Bella MD Primary Care Pr ovider Abhilash Bella MD Unavailable Encounter Details Date Type Department Care Team (Late st Contact Info) Description 06/15/2025 Telephone [facility] [address] [place] [phone] Abhilash Bella MD [address] [place] [address] Social History Tobacco Use Types Packs/Day Years [...] on file documented as of this encounter Progress Notes * Abhilash Bella MD - 06/15/2025 12:50 PM EST You could cancel the BW. I will see her as scheduled. Thanks * Miracle Lal - 06/15/2025 10:50 AM EST Son Tonny called. Pt is scheduled for fasting labs on 06/19/25 and he is wondering if pt definitelyneeds to come in because she already had some labs done at the Hospital last month. I told him I would send a message and call him back. Please advise, Thanks. [phone] - Tonny documented in this encounter Plan of Treatment Upcoming Encounters Date Type Department Care Team (Late st Contact Info) Description 06/26/2025 10:30 AM EST Follow-Up [address] [address] Abhilash Bella MD [address] [place] [address] 06/30/2025 3:00 PM EST Follow-Up [facility] [address] [place] [address] Soila Lester CNP [address] [place] [address] 09/03/2025 2:00 PM EST Office Visit [facility] [address] [facility] [address] [place] [address] Torrey Lucas MD 220 [facility] [address] [place] [address] documented as of this encounter Visit Diagnoses Not on filedocumented in this encounter Additional Health Concerns Assessment Noted Time PHQ-9 Depression Total Score: 0 03/28/20 23 1:40 PM EDT PHQ-2 Depression Total Score: 2 06/11/20 24 12:26 PM EST documented as of this encounter Care Teams Rug Repairer Relationship Specialty Start Date End Date Abhilash Bella MD [address] [place] [address] PCP - General Internal Medicine 03/06/23 Abhilash Bella MD [address] [place] [address] Insurance Assigned Provider 11/09/24 documented as of this encounter Additional Source Comments The information contained in this document represents components of the legal health record. It is not the complete legal health record.[facility]
--- OUTSIDE RECORDS SUMMARY | 2025-06-18 19:04 | XMS_ITS | Encounter Summary ---
Author Organization [facility] Address [address] [facility] [address] [place] [address] Phone Care Team Providers Care Machine Tech Name Role Phone Abhilash Bella MD Primary Care Pr ovider Abhilash Bella MD Unavailable Encounter Details Date Type Department Care Team (Late st Contact Info) Description 05/25/2023 CRM System Generated VIRTUAL DEPARTMENT Myra Lester PA-C [address] [place] [address] [email or web address] Social History Tobacco Use Types Packs/Day Years [...] Info) Description 06/26/2025 10:30 AM EST Follow-Up [facility] [address] [place] [address] Abhilash Belal MD [address] [place] [address] 06/30/2025 3:00 PM EST Follow-Up [facility] [address] [place] [address] Soila Lester CNP [address] [place] [address] 09/03/2025 2:00 PM EST Office Visit [facility], [facility] [address] [facility] [address] [place] [address] Torrey Lucas MD [address] [place] [address] [address] [place] [address] [email or web address] documented as of this encounter Procedures Procedure Name Priority Date/Time Associated Diagnosis Comments BI MAMMOGRAM DIAGNOSTIC CALL BACK (RIGHT) 05/25/2023 8:58 AM EDT documented in this encounter Results * Mammogram Diagnostic Call Back (Right) (05/25/2023 8:58 AM EDT) Anatomical Region Laterality Modality Breast Right, Breast Bilateral Right B reast Diagnostic 05/25/2023 8:58 AM EDT Narrative 05/25/2023 8:58 AM EDT History: Right breast calcification on screening exam. Comparison: 2012 to 2022 Technique: RIGHT DIGITAL DIAGNOSTIC MAMMOGRAM: Findings: A group of calcifications in the right outer central breast is slightly more numerous. No definite pleomorphism or branching. A few scattered typically benign appearing calcifications are noted elsewhere in the included portion of the right breast. Impression: Probably benign right breast calcification. Magnification views of the right breast in 6 months recommended. Findings and recommendations discussed with the patient at the time of the exam. Per [facility] protocol, the patient was entered into a reminder system with target date for the next mammogram. BIRADS 3 Probably Benign. Parenchymal Pattern Your breast Parenchymal pattern is heterogeneously dense, which may obscure small masses Other Recommendation: mammogram in 6 months.. Electronically signed by: Eli Urias MD Dictated: 05/25/2023 08:58Transcribed by: Procedure Note Eli Urias MD - 05/25/2023 History: Right breast calcification on screening exam. Comparison: 2012 to 2022 Technique: RIGHT DIGITAL DIAGNOSTIC MAMMOGRAM: Findings: A group of calcifications in the right outer central breast is slightly more numerous. No definite pleomorphism or branching. A few scattered typically benign appearing calcifications are noted elsewhere in the included portion of the right breast. Impression: Probably benign right breast calcification. Magnification views of the right breast in 6 months recommended. Findings and recommendations discussed with the patient at the time of the exam. Per [facility] protocol, the patient was entered into a reminder system with target date for the next mammogram. BIRADS 3 Probably Benign. Parenchymal Pattern Your breast Parenchymal pattern is heterogeneously dense, which may obscure small masses Other Recommendation: mammogram in 6 months.. Electronically signed by: Eli Urias MD Dictated: 05/25/2023 08:58Transcribed by: Myra Lester PA-C [facility] MG EXAMS Final Result documented in this encounter Visit Diagnoses Not on filedocumented in this encounter Additional Health Concerns Assessment Noted Time PHQ-9 Depression Total Score: 0 03/28/20 1:40 PM EDT PHQ-2 Depression Total Score: 0 03/28/20 1:40 PM EDT documented as of this encounter Care Teams Machine Tech Relationship Specialty Start Date End Date Abhilash Bella MD [address] [place] [address] [email or web address] PCP - General Internal Medicine 03/06/23 Abhilash Bella MD [address] [place] [phone] [email or web address] Insurance Assigned Provider 11/09/24 documented as of this encounter Additional Source Comments The information contained in this document represents components of the legal health record. It is not the complete legal health record.[facility]
[2025-06-18 19:50] VITALS: BP 188/78; PULSE 67; RESP 16; TEMP 36.7; O2SAT 95
[2025-06-18 19:53] VITALS: BMI 21.6
--- NOTE | 2025-06-18 20:12 | PHA.MEDREC ---
Pharmacy Consult ? Medication Reconciliation Pharmacy has reviewed the medication reconciliation complete by nursing.
[2025-06-18] MEDS: Carbidopa/Levodopa CR 25/100 TABLET.ER 1 TAB PO (21:54)
[2025-06-19 00:09] VITALS: BMI 22.5
--- NOTE | 2025-06-19 02:20 | PC.NURSE ---
Admission Note Tequila Dalton, an 84-year-old woman, was presented to [facility] ED from [facility] for increased confusion, aggressive behavior, visual hallucination, and delusional paranoia, thinking that staff were poisoning her. She was at Rehab for STR for hip pain from a fall. The patient has a past medical history of? Brain aneurysm, Hypertension, Myocardial infarction, Dementia, neurocognitive disorder, and Parkinson's disease. The patient has no psychiatric history.? Tequila arrived with EMS on a stretcher at 1930 on 06/18/25, 12B, with an admitting diagnosis of? Major Neurocognitive D/O. The patient has a copy of DNR/DNI. Provider notified; code status not updated; order stands as full-code at this time. He is alert and oriented x 2. Behaviour calm, quiet, forgetful, low voice mumbling at times, confused, angry at times, and pleasant. Thought content and process unclear. Unable to participate in the assessment. Skin was assessed and found to have multiple bruises on the bilateral hands and arms, more concentrated on the wrist. Per EMS, the patient is bed-bound, transferred directly from the stretcher to bed; however, the patient later got up and ambulated with assistance to the bathroom. Offered a walker, used a walker, and ambulated to the kitchen area.? Med-reconciliation completed/approved /MAR active. She takes her meds whole, one pill at a time with water. Per the report, the patient was not drinking and eating well and not voiding well. The Smith catheter was discontinued just before leaving the ED. The patient is incontinent of bowel and bladder. The patient had one episode of incontinence of urine. The patient's intake was 360 ml. Tequila lives with her son, Tonny Dalton, who is her invoked healthcare proxy. She is dependent on all ADL care at this time. Labs are unremarkable; UA negative. However, Keflex was started in the ED, but she refused to take it.? Tequila is too psychiatrically compromised to sign her treatment plan, safety tool, release paper, and other papers. Contraband was searched, nothing was found, and she is on a 5-minute safety check.
[2025-06-19 08:00] VITALS: BP 146/69; PULSE 61; TEMP 36.4; O2SAT 100
--- NOTE | 2025-06-19 08:18 | HO.PM.IMCN ---
History of Present Illness Data of Consult Service Date: 06/19/25 Primary Care Provider: Unknown Physician HPI Reason for consult: Medical consult 84-year-old female with past medical history of GERD, Parkinson's, hypertension, hyperlipidemia, seizure disorder, hypothyroidism, history of brain aneurysm, history of DE who presented to [facility] with increased agitation, aggression, hallucinations and paranoia. Patient was transferred from a short-term rehab to [facility] where she was residing for [facility] after a fall with hip pain. Patient presented to the ED the day before for similar complaints, sent back to rehab on Zyprexa but patient refused to take this. Her urine was negative for UTI. No leukocytosis or anemia noted, no electrolyte imbalances. Creatinine noted to be 1.55 due to patient not drinking due to being felt that she was being poisoned. She was given IV fluids and her creatinine improved to 0.65. She had a CT on 06/16 which revealed no acute intracranial abnormalities. On exam she is nonverbal. Has not taken her medications. Spoke with son who reconciled medications with this program writer. Review of Systems Review of Systems: Limited due to cognition PMFSH Social History Household Members: None Housing: Apartment Do you presently have visiting nurse or other home services: No Patient Tobacco Use Status: Never used Tobacco Second Hand Smoke Exposure: No Currently Displaying Signs/Symptoms of Drug Intoxication Withdrawal: No Have you been hit, kicked, punched, or otherwise hurt by someone within the past year? If so, by whom?: No Do you feel safe in your current relationship?: No Is there a partner from a previous relationship who is making you feel unsafe now?: No Are you made to feel afraid or neglected: No Advance Directives: No Advance Directives Information Provided: No Do you have thoughts of harming others: None Do you have a plan to hurt others: No Plan Recently lost weight without trying: Yes How much weight loss: Unsure Eating poorly because of decreased appetite: No Nutrition screen score: 4 Nutrition Risks: Poor intake 0-25% >4 days Patient : No : No Poor oral hygiene: No Meds Allergies Allergy/AdvReac Type Severity Reaction Status Date / Time No Known Allergies Allergy Verified 06/18/25 19:01 Active Medications: Current Medications Acetaminophen (Acetaminophen 325 Mg Tablet) 650 mg PO Q6H PRN PRN Reason: Headache/Pain, Scale 1-10 Al Hydroxide/Mg Hydroxide (Magnesium Hydrox/Alum Hydrox 30 Ml Oral.Susp) 30 ml PO Q6H PRN PRN Reason: Heartburn/Nausea Amlodipine Besylate (Amlodipine Besylate 5 Mg Tablet) 5 mg PO DAILY [facility]; Protocol Atorvastatin Calcium (Atorvastatin Calcium 40 Mg Tablet) 40 mg PO BEDTIME [facility] Last Admin: 06/18/25 21:55 Dose: 40 mg Carbidopa/Levodopa (Carbidopa/Levodopa Cr 25/100 Tablet.Er) 1 tab PO BEDTIME [facility] Last Admin: 06/18/25 21:54 Dose: 1 tab Hydrochlorothiazide (Hydrochlorothiazide 12.5 Mg Tablet) 12.5 mg PO DAILY [facility]; Protocol Levetiracetam (Levetiracetam 500 Mg Tablet) 500 mg PO BID [facility] Last Admin: 06/18/25 21:54 Dose: 500 mg Levothyroxine Sodium (Levothyroxine Sodium 50 Mcg Tablet) 50 mcg PO DAILY@0600 [facility] Last Admin: 06/19/25 07:06 Dose: Not Given Magnesium Hydroxide (Milk Of Magnesia 30 Ml Oral.Susp) 30 ml PO DAILY PRN PRN Reason: Constipation Metoprolol Succinate (Metoprolol Succinate Er 12.5 Mg Halftab.Er.24h) 12.5 mg PO DAILY [facility]; Protocol Naproxen (Naproxen 250 Mg Tablet) 250 mg PO BID [facility] Last Admin: 06/18/25 21:55 Dose: 250 mg Nicotine Polacrilex (Nicotine Polacrilex 2 Mg Gum) 4 mg BUCCAL Q2H PRN PRN Reason: Nicotine Cravings Olanzapine (Olanzapine 2.5 Mg Tablet) 2.5 mg PO TID PRN PRN Reason: agitation Prednisone (Prednisone 5 Mg Tablet) 5 mg PO DAILY [facility] Trazodone HCl (Trazodone Hcl 50 Mg Tablet) 50 mg PO BEDTIME MRX1 PRN PRN Reason: Insomnia Valsartan (Valsartan 80 Mg Tablet) 80 mg PO DAILY [facility]; Protocol Venlafaxine HCl (Venlafaxine Hcl Er 150 Mg Cap.Er.24h) 150 mg PO DAILY [facility] Home Medications ?Medication ?Instructions ?Recorded ?Confirmed ?Last Taken ?Type amlodipine 5 mg tablet 5 mg PO QAM blood pressure 06/18/25 06/18/25 Unknown History atorvastatin 40 mg tablet 40 mg PO BEDTIME cholesterol 06/18/25 06/18/25 Unknown History carbidopa ER 25 mg-levodopa 100 mg 1 tab PO BEDTIME 06/18/25 06/18/25 Unknown History tablet,extended release hydrochlorothiazide 12.5 mg capsule 12.5 mg PO QAM 06/18/25 06/18/25 Unknown History levetiracetam 500 mg tablet 500 mg PO BID seizures 06/18/25 06/18/25 Unknown History levothyroxine 50 mcg tablet 50 mcg PO QAM disorder of thyroid 06/18/25 06/18/25 Unknown History gland meloxicam 7.5 mg tablet 7.5 mg PO DAILY 06/18/25 06/18/25 Unknown History metoprolol succinate 25 mg 12.5 mg PO QAM blood pressure 06/18/25 06/18/25 Unknown History tablet,extended release 24 hr olmesartan 20 mg tablet 20 mg PO DAILY blood pressure 06/18/25 06/18/25 Unknown History prednisone 2.5 mg tablet 5 mg PO DAILY 06/18/25 06/18/25 Unknown History venlafaxine 150 mg 150 mg PO QAM depressive disorder 06/18/25 06/18/25 Unknown History capsule,extended release 24 hr aspirin 81 mg tablet 81 mg PO DAILY 06/19/25 06/19/25 Unknown History calcium 500 mg (as 1 tab PO BID 06/19/25 06/19/25 Unknown History carbonate)-vitamin D3 10 mcg (400 unit) tablet (Oyster Shell Calcium-Vitamin D3) carbidopa 25 mg-levodopa 100 mg 2 tab PO TID 06/19/25 06/19/25 Unknown History tablet cyanocobalamin (vitamin B-12) 500 500 mcg PO QAM 06/19/25 06/19/25 Unknown History mcg tablet docusate sodium 100 mg capsule 100 mg PO TID PRN constipation 06/19/25 06/19/25 Unknown History famotidine 20 mg tablet 20 mg PO QPM acid reflux 06/19/25 06/19/25 Unknown History nitroglycerin 0.4 mg sublingual 0.5 mg sublingual Q5M PRN Chest 06/19/25 06/19/25 Unknown History tablet Pain Physical Exam Vital Signs and Narrative: Vital Signs: Last Vital Signs Temp 97.5 F 06/19/25 08:00 Pulse 61 06/19/25 08:00 Resp 16 06/18/25 19:50 BP 146/69 H 06/19/25 08:00 Pulse Ox 100 06/19/25 08:00 O2 Del Method Room Air 06/19/25 08:00 BMI result Body Mass Index 22.5 Alert, nonverbal. Looking at you but unable to answer. Tremors noted to head. Neuro: CN II-X11 intact, no deficits, visual acuity intact EYES: PERRLA, EOM intact ENT: Hearing intact, MMM Cardiac: S1 S2 RRR, No ectopy Pulmonary: Lungs clear to auscultation, No increased WOB. Abdominal: BS active in all 4 quadrants, no guarding or tenderness MSK: Strength 5/5 upper and lower extremities : Deferred Extremities: No edema in lower extremities Psych: Catatonic Skin: Warm and dry, Intact Assessment and Plan (1) Parkinsons disease: Status: Acute (2) HTN (hypertension): Status: Acute (3) HLD (hyperlipidemia): Status: Acute (4) Hypothyroidism: Status: Acute Plan 84-year-old female with past medical history as listed below presented to the emergency department from a SNF with increased agitation, aggression hallucinations and paranoia. She is now admitted here for stabilization. Agitation/aggression Admitted from SNF after short-term rehab for a fall Treatment per psychiatric team Parkinson's Sinemet 25/100mg 2 tabs t.i.d. and 1 tab extended release at bedtime Encouraged medication compliance GERD Continue Pepcid at HS HTN/HLD Continue Diovan, Norvasc. DC hydrochlorothiazide due to increased fall risk. Restart if blood pressure continues to be elevated Chronic arthritis pain Patient is followed outpatient MD who prescribed prednisone 5 mg daily. Patient has been tapered down and subsequently ordered to continue 5 mg daily with the eventual plan to wean to 2.5 daily per son's report. Tylenol as needed for pain Naprosyn DC due to increased bleeding risk Recent short-term rehab stay for hip pain, plans to discharge to son's home with services prior to this admission Seizure disorder No recent seizures Continuing Keppra daily Hypothyroidism Continue levothyroxine 50 mcg daily Labs pending History of DE Continue daily aspirin and beta lionel History of brain aneurysm Recent head CT negative for any acute intracranial abnormalities. Thank you for allowing me to participate in the care of this patient. Will follow with you, please notify medical provider with any changes in condition or concerns.
--- NOTE | 2025-06-19 09:08 | HO.PSYADMNOT ---
HPI Date of Service: 06/19/25 Chief Complaint: decompensation Sources of Information: patient interviewed, chart reviewed and crisis/core team assessment reviewed HPI Subjective Notes: Rizzo Warning and Section 12B Narrative: Mrs. Dalton is an 85 year-old woman with hx of dementia, Parkinsons who was brought from [facility] where she was receiving STR to [facility] due to increase combative behaviors, increase aggression and paranoid delusions thinking staff was poisoning her. Pertinent labs completed in the ED include CBC mostly unremarkable, CMP without electrolyte abnormalities, BUN 30, Cr 1.55, creatinine clearance 33. UA not consistent with UTI. Pt seen in the ED. She presents very sleepy mid day. She was difficult to arouse. She had declined all medications. Pending collateral information from son, Tonny ([phone]). Medical Evaluation Reviewed: Yes [facility] Family History: unknown Substance History: none Diagnostics Vital Signs (24Hr): Vital Signs - 24 hr 06/18/25 19:50 06/19/25 08:00 Temperature 98.1 F 97.5 F Pulse Rate 67 61 Respiratory Rate 16 Blood Pressure 188/78 H 146/69 H Pulse Oximetry 95 100 Oxygen Delivery Method Room Air Room Air BMI result Body Mass Index 22.5 Labs 06/20/25 07:49 Meds/Allergies Meds Home Medications ?Medication ?Instructions ?Recorded ?Confirmed ?Type amlodipine 5 mg tablet 5 mg PO QAM blood pressure 06/18/25 06/18/25 History atorvastatin 40 mg tablet 40 mg PO BEDTIME cholesterol 06/18/25 06/18/25 History carbidopa ER 25 mg-levodopa 100 mg 1 tab PO BEDTIME 06/18/25 06/18/25 History tablet,extended release hydrochlorothiazide 12.5 mg capsule 12.5 mg PO QAM 06/18/25 06/18/25 History levetiracetam 500 mg tablet 500 mg PO BID seizures 06/18/25 06/18/25 History levothyroxine 50 mcg tablet 50 mcg PO QAM disorder of thyroid 06/18/25 06/18/25 History gland meloxicam 7.5 mg tablet 7.5 mg PO DAILY 06/18/25 06/18/25 History metoprolol succinate 25 mg 12.5 mg PO QAM blood pressure 06/18/25 06/18/25 History tablet,extended release 24 hr olmesartan 20 mg tablet 20 mg PO DAILY blood pressure 06/18/25 06/18/25 History prednisone 2.5 mg tablet 5 mg PO DAILY 06/18/25 06/18/25 History venlafaxine 150 mg 150 mg PO QAM depressive disorder 06/18/25 06/18/25 History capsule,extended release 24 hr aspirin 81 mg tablet 81 mg PO DAILY 06/19/25 06/19/25 History calcium 500 mg (as 1 tab PO BID 06/19/25 06/19/25 History carbonate)-vitamin D3 10 mcg (400 unit) tablet (Oyster Shell Calcium-Vitamin D3) carbidopa 25 mg-levodopa 100 mg 2 tab PO TID 06/19/25 06/19/25 History tablet cyanocobalamin (vitamin B-12) 500 500 mcg PO QAM 06/19/25 06/19/25 History mcg tablet docusate sodium 100 mg capsule 100 mg PO TID PRN constipation 06/19/25 06/19/25 History famotidine 20 mg tablet 20 mg PO QPM acid reflux 06/19/25 06/19/25 History nitroglycerin 0.4 mg sublingual 0.5 mg sublingual Q5M PRN Chest 06/19/25 06/19/25 History tablet Pain Allergies Allergies Allergy/AdvReac Type Severity Reaction Status Date / Time No Known Allergies Allergy Verified 06/18/25 19:01 Mental Status Exam Mental Status Exam Narrative: Appearance: wearing hospital gown, thin, fair hygiene, in NAD Behavior: difficulty engaging. somewhat sleepy Minimally verbal. Assessment & Plan Assessment & Plan (1) Major neurocognitive disorder due to multiple etiologies with behavioral disturbance: Status: Acute Code(s): F02.818 - Dementia in other diseases classified elsewhere, unspecified severity, with other behavioral disturbance Plan Mrs. Dalton is an 85 year-old woman with hx of dementia, Parkisons's who was brought from [facility] due to increase combative behaviors, increase paranoid ideas thinking staff at [facility] were trying to poison her. On the unit, pt continues to decline medications. Seemed somewhat somnolent. Later in evening more combative. PLAN 1. admit to S1, sect 12b 2. continue current medication. avoid high potency antipsychotics due to underlying Parkinson's disease 3. obtain collateral information. 4. aftercare plan Patient educated on: diagnosis and medication risk/benefits Reason for continued inpatient stay Substantial Risk for: harm to others and inability to function Statement Statement: I have reviewed the history and physical and performed a pertinent examination on my patient. No changes have occurred unless specified. If the History and Physical was not performed prior to admission, the Hospitalist's service will be consulted for completing the admission physical. Time Spent With Patient Time: Total time managing care of this patient today ____ minutes.
[2025-06-19 20:00] VITALS: BP 165/75; PULSE 103; RESP 18; TEMP 36.8; O2SAT 98
[2025-06-19] MEDS: Calcium + Vitamin D 250 MG TABLET 500 MG PO (20:49)
[2025-06-19] MEDS: Carbidopa/Levodopa CR 25/100 TABLET.ER 1 TAB PO (20:50)
[2025-06-20 08:00] VITALS: BP 187/80; TEMP 37.1
[2025-06-20 09:23] LABS: Alanine Aminotransferase < 6 U/L (0-31); Albumin Level 4.4 g/dL (3.5-5.0); Alkaline Phosphatase 78 U/L (39-117); Anion Gap 21 (12-20); Aspartate Amino Transferase 49 U/L (5-31); Blood Urea Nitrogen 23 mg/dL (9-16); Calcium 9.8 mg/dL (8.4-10.2); Carbon Dioxide 21 mmol/L (22-29); Chloride 106 mmol/L (96-108); Cholesterol 200 mg/dL (<200); Creatinine Clr Calc Pharmacy 33.2; Estimated Glomerular Filt Rate > 60; HDL Cholesterol 82 mg/dL (>40); Potassium 4.5 mmol/L (3.3-5.1); Sodium 143 mmol/L (135-145); Total Protein 7.9 g/dL (6.5-8.0); Triglycerides 108 mg/dL (<150)
[2025-06-20] MEDS: Venlafaxine HCl ER 150 MG CAP.ER.24H PO (09:26)
[2025-06-20] MEDS: Calcium + Vitamin D 250 MG TABLET 500 MG PO ×2 (09:26→20:28)
[2025-06-20] MEDS: Metoprolol Succinate ER 12.5 MG HALFTAB.ER.24H PO (09:27)
--- NOTE | 2025-06-20 09:27 | P.PNPSI_ITS ---
Subjective Subjective Date of Service: 06/20/25 Reason For Visit: decompensation Interim History: Patient seen. Discussed with nursing. 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 Mood and anxiety have been OK . She is having some leg pain. Chronic. Difficulty getting out of bed and needs assistance. Was feeling dizzy when she got up. Appetite and sleep are good. Denies SI. Review of Systems Review of Systems Limited due to cognition Mental Status Exam Mental Status Exam Narrative: General appearance: Hospital gown Good hygiene.? Eye contact: WNL. Musculoskeletal: Wheelchair Manner/behavior: cooperative and not guarded Speech:? Fluent, with normal rate, tone and volume. Language: No receptive or expressive language impairment? Mood: It's OK. Affect: constricted range, congruent to mood and without lability? Thought process/associations: Linear with no flight of ideas or loose associations.?? Thought content:?No delusions or paranoia.?? Hallucinations: No auditory, visual or other hallucinations Suicidality/self-destructive behavior: none, future oriented, hopeful.? ? Homicidally/violence: none.? Reliability: impaired.? ? Judgment: impaired.? ? Insight: impaired Cognition: Alert. Disoriented to time place and situation. Attention normal.? Impulse control and emotional regulation: impaired. Intelligence estimate: average.? Diagnostics Vital Signs (24Hr): Vital Signs - 24 hr 06/19/25 20:00 Temperature 98.2 F Pulse Rate 103 H Respiratory Rate 18 Blood Pressure 165/75 H Pulse Oximetry 98 Oxygen Delivery Method Room Air BMI result Body Mass Index 22.5 Labs 06/20/25 07:49 Labs: Laboratory Results - last 48 hr 06/20/25 07:49 Sodium 143 Potassium 4.5 Chloride 106 Carbon Dioxide 21 L Anion Gap 21 H BUN 23 H Creatinine 0.83 Estim Creat Clear Calc 33.2 Estimated GFR > 60 Random Glucose 112 Estimat Average Glucose 137 Hemoglobin A1c % 6.4 H Calcium 9.8 Total Bilirubin 1.1 H AST 49 H ALT < 6 Alkaline Phosphatase 78 Total Protein 7.9 Albumin 4.4 Triglycerides 108 Cholesterol 200 H LDL Cholesterol, Calc 97 HDL Cholesterol 82 Medications Medications Current Medications Acetaminophen (Acetaminophen 325 Mg Tablet) 650 mg PO Q6H PRN PRN Reason: Headache/Pain, Scale 1-10 Al Hydroxide/Mg Hydroxide (Magnesium Hydrox/Alum Hydrox 30 Ml Oral.Susp) 30 ml PO Q6H PRN PRN Reason: Heartburn/Nausea Amlodipine Besylate (Amlodipine Besylate 5 Mg Tablet) 5 mg PO DAILY [facility]; Protocol Last Admin: 06/19/25 12:25 Dose: Not Given Aspirin (Aspirin 81 Mg Tab.Chew) 81 mg PO DAILY [facility] Atorvastatin Calcium (Atorvastatin Calcium 40 Mg Tablet) 40 mg PO BEDTIME [facility] Last Admin: 06/19/25 20:50 Dose: 40 mg Calcium Carbonate/Cholecalciferol (Calcium + Vitamin D 250 Mg Tablet) 500 mg PO BID [facility] Last Admin: 06/19/25 20:49 Dose: 500 mg Carbidopa/Levodopa (Carbidopa/Levodopa Cr 25/100 Tablet.Er) 1 tab PO BEDTIME [facility] Last Admin: 06/19/25 20:50 Dose: 1 tab Carbidopa/Levodopa (Carbidopa/Levodopa 25/100 Tablet) 2 tab PO TID@0700,1200,1700 [facility] Cyanocobalamin (Cyanocobalamin (Vitamin B-12) 500 Mcg Tablet) 500 mcg PO DAILY [facility] Docusate Sodium (Docusate Sodium 100 Mg Capsule) 100 mg PO TID PRN PRN Reason: Constipation Famotidine (Famotidine 20 Mg Tablet) 20 mg PO BEDTIME [facility] Last Admin: 06/19/25 20:50 Dose: 20 mg Levetiracetam (Levetiracetam 500 Mg Tablet) 500 mg PO BID [facility] Last Admin: 06/19/25 20:49 Dose: 500 mg Levothyroxine Sodium (Levothyroxine Sodium 50 Mcg Tablet) 50 mcg PO DAILY@0600 [facility] Last Admin: 06/20/25 06:45 Dose: 50 mcg Magnesium Hydroxide (Milk Of Magnesia 30 Ml Oral.Susp) 30 ml PO DAILY PRN PRN Reason: Constipation Metoprolol Succinate (Metoprolol Succinate Er 12.5 Mg Halftab.Er.24h) 12.5 mg PO DAILY [facility]; Protocol Last Admin: 06/19/25 12:26 Dose: Not Given Nicotine Polacrilex (Nicotine Polacrilex 2 Mg Gum) 4 mg BUCCAL Q2H PRN PRN Reason: Nicotine Cravings Nitroglycerin (Nitroglycerin 0.4 Mg Tab.Subl) 0.5 mg SUBLINGUAL Q5M PRN PRN Reason: Chest Pain Olanzapine (Olanzapine 2.5 Mg Tablet) 2.5 mg PO TID PRN PRN Reason: agitation Prednisone (Prednisone 5 Mg Tablet) 5 mg PO DAILY [facility] Last Admin: 06/19/25 12:27 Dose: Not Given Trazodone HCl (Trazodone Hcl 50 Mg Tablet) 50 mg PO BEDTIME MRX1 PRN PRN Reason: Insomnia Valsartan (Valsartan 80 Mg Tablet) 80 mg PO DAILY [facility]; Protocol Last Admin: 06/19/25 12:28 Dose: Not Given Venlafaxine HCl (Venlafaxine Hcl Er 150 Mg Cap.Er.24h) 150 mg PO DAILY [facility] Last Admin: 06/19/25 12:29 Dose: Not Given Allergies Allergies Allergy/AdvReac Type Severity Reaction Status Date / Time No Known Allergies Allergy Verified 06/18/25 19:01 Assessment & Plan Assessment & Plan (1) Parkinsons disease: Status: Acute Code(s): G20 - Parkinson's disease (2) HTN (hypertension): Status: Acute Code(s): I10 - Essential (primary) hypertension (3) HLD (hyperlipidemia): Status: Acute Code(s): E78.5 - Hyperlipidemia, unspecified (4) Hypothyroidism: Status: Acute Code(s): E03.9 - Hypothyroidism, unspecified Plan 84-year-old female with past medical history of GERD, Parkinson's, hypertension, hyperlipidemia, seizure disorder, hypothyroidism, history of brain aneurysm, history of [place] who presented to [facility] with increased agitation, aggression, hallucinations and paranoia. Patient was transferred from a short- term rehab to [facility] where she was residing for STR after a fall with hip pain. Patient presented to the ED the day before for similar complaints, sent back to rehab on Zyprexa but patient refused to take this. Her urine was negative for UTI. No leukocytosis or anemia noted, no electrolyte imbalances. Creatinine noted to be 1.55 due to patient not drinking due to being felt that she was being poisoned. She was given IV fluids and her creatinine improved to 0.65. She had a CT on 06/16 which revealed no acute intracranial abnormalities. Agitation/aggression Admitted from SNF after short-term rehab for a fall Treatment per psychiatric team Parkinson's Sinemet 25/100mg 2 tabs t.i.d. and 1 tab extended release at bedtime Encouraged medication compliance GERD Continue Pepcid at HS HTN/HLD Continue Diovan, Norvasc. DC hydrochlorothiazide due to increased fall risk. Restart if blood pressure continues to be elevated Chronic arthritis pain Patient is followed outpatient MD who prescribed prednisone 5 mg daily. Patient has been tapered down and subsequently ordered to continue 5 mg daily with the eventual plan to wean to 2.5 daily per son's report. Tylenol as needed for pain Naprosyn DC due to increased bleeding risk Recent short-term rehab stay for hip pain, plans to discharge to son's home with services prior to this admission Seizure disorder No recent seizures Continuing Keppra daily Hypothyroidism Continue levothyroxine 50 mcg daily Labs pending History of [place] Continue daily aspirin and beta lionel History of brain aneurysm Recent head CT negative for any acute intracranial abnormalities. 06/20: continue current management and treatment plan. Reason for continued inpatient stay Substantial Risk for: inability to function, rapid decompensation and med/psych decompensation Time Spent With Patient Time: Total time managing care of this patient today ____ minutes.
--- NOTE | 2025-06-20 17:25 | P.PNPSI_ITS ---
Subjective Subjective Date of Service: 06/20/25 Reason For Visit: decompensation Interim History: Patient reports she is feeling well. She is anxious and pleasant with this examiner. She remains confused. She is having some visual hallucinations. She has a 1:1. She has been calm and non-combative but irritable with redirection. Denies SI. Mental Status Exam Mental Status Exam Narrative: General appearance: casually appropriate dress. Good hygiene.? Eye contact: WNL. Musculoskeletal: Anxious Manner/behavior: cooperative Speech:? soft Language: No receptive or expressive language impairment? Mood: It's OK Affect: constricted range, anxious, congruent to mood and without lability? Thought process/associations: poverty of thought? Thought content:?anxious Hallucinations: visual ? Suicidality/self-destructive behavior: none, future oriented, hopeful.? ? Homicidally/violence: none.? Reliability: poor.? ? Judgment: impaired.? ? Insight: impaired Cognition: disoriented Attention, concentration and fund of knowledge are poor Impulse control and emotional regulation: impaired Intelligence estimate: average.? Diagnostics Vital Signs (24Hr): Vital Signs - 24 hr 06/19/25 20:00 06/20/25 08:00 Temperature 98.2 F 98.8 F Pulse Rate 103 H Respiratory Rate 18 Blood Pressure 165/75 H 187/80 H Pulse Oximetry 98 Oxygen Delivery Method Room Air BMI result Body Mass Index 22.5 Labs 06/20/25 07:49 Labs: Laboratory Results - last 48 hr 06/20/25 07:49 Sodium 143 Potassium 4.5 Chloride 106 Carbon Dioxide 21 L Anion Gap 21 H BUN 23 H Creatinine 0.83 Estim Creat Clear Calc 33.2 Estimated GFR > 60 Random Glucose 112 Estimat Average Glucose 137 Hemoglobin A1c % 6.4 H Calcium 9.8 Total Bilirubin 1.1 H AST 49 H ALT < 6 Alkaline Phosphatase 78 Total Protein 7.9 Albumin 4.4 Triglycerides 108 Cholesterol 200 H LDL Cholesterol, Calc 97 HDL Cholesterol 82 TSH 3.44 Medications Medications Current Medications Acetaminophen (Acetaminophen 325 Mg Tablet) 650 mg PO Q6H PRN PRN Reason: Headache/Pain, Scale 1-10 Al Hydroxide/Mg Hydroxide (Magnesium Hydrox/Alum Hydrox 30 Ml Oral.Susp) 30 ml PO Q6H PRN PRN Reason: Heartburn/Nausea Amlodipine Besylate (Amlodipine Besylate 5 Mg Tablet) 5 mg PO DAILY [facility]; Protocol Last Admin: 06/20/25 09:27 Dose: 5 mg Aspirin (Aspirin 81 Mg Tab.Chew) 81 mg PO DAILY [facility] Last Admin: 06/20/25 09:27 Dose: 81 mg Atorvastatin Calcium (Atorvastatin Calcium 40 Mg Tablet) 40 mg PO BEDTIME [facility] Last Admin: 06/19/25 20:50 Dose: 40 mg Calcium Carbonate/Cholecalciferol (Calcium + Vitamin D 250 Mg Tablet) 500 mg PO BID [facility] Last Admin: 06/20/25 09:26 Dose: 500 mg Carbidopa/Levodopa (Carbidopa/Levodopa Cr 25/100 Tablet.Er) 1 tab PO BEDTIME [facility] Last Admin: 06/19/25 20:50 Dose: 1 tab Carbidopa/Levodopa (Carbidopa/Levodopa 25/100 Tablet) 2 tab PO TID@0700,1200,1700 [facility] Last Admin: 06/20/25 16:53 Dose: 2 tab Cyanocobalamin (Cyanocobalamin (Vitamin B-12) 500 Mcg Tablet) 500 mcg PO DAILY [facility] Last Admin: 06/20/25 09:27 Dose: 500 mcg Docusate Sodium (Docusate Sodium 100 Mg Capsule) 100 mg PO TID PRN PRN Reason: Constipation Famotidine (Famotidine 20 Mg Tablet) 20 mg PO BEDTIME [facility] Last Admin: 06/19/25 20:50 Dose: 20 mg Levetiracetam (Levetiracetam 500 Mg Tablet) 500 mg PO BID [facility] Last Admin: 06/20/25 09:26 Dose: 500 mg Levothyroxine Sodium (Levothyroxine Sodium 50 Mcg Tablet) 50 mcg PO DAILY@0600 [facility] Last Admin: 06/20/25 06:45 Dose: 50 mcg Magnesium Hydroxide (Milk Of Magnesia 30 Ml Oral.Susp) 30 ml PO DAILY PRN PRN Reason: Constipation Metoprolol Succinate (Metoprolol Succinate Er 12.5 Mg Halftab.Er.24h) 12.5 mg PO DAILY [facility]; Protocol Last Admin: 06/20/25 09:27 Dose: 12.5 mg Nicotine Polacrilex (Nicotine Polacrilex 2 Mg Gum) 4 mg BUCCAL Q2H PRN PRN Reason: Nicotine Cravings Nitroglycerin (Nitroglycerin 0.4 Mg Tab.Subl) 0.5 mg SUBLINGUAL Q5M PRN PRN Reason: Chest Pain Olanzapine (Olanzapine 2.5 Mg Tablet) 2.5 mg PO TID PRN PRN Reason: agitation Prednisone (Prednisone 5 Mg Tablet) 5 mg PO DAILY [facility] Last Admin: 06/20/25 09:27 Dose: 5 mg Trazodone HCl (Trazodone Hcl 50 Mg Tablet) 50 mg PO BEDTIME MRX1 PRN PRN Reason: Insomnia Valsartan (Valsartan 80 Mg Tablet) 80 mg PO DAILY [facility]; Protocol Last Admin: 06/20/25 09:27 Dose: 80 mg Venlafaxine HCl (Venlafaxine Hcl Er 150 Mg Cap.Er.24h) 150 mg PO DAILY [facility] Last Admin: 06/20/25 09:26 Dose: 150 mg Allergies Allergies Allergy/AdvReac Type Severity Reaction Status Date / Time No Known Allergies Allergy Verified 06/18/25 19:01 Assessment & Plan Assessment & Plan (1) Parkinsons disease: Status: Acute Code(s): G20 - Parkinson's disease (2) HTN (hypertension): Status: Acute Code(s): I10 - Essential (primary) hypertension (3) HLD (hyperlipidemia): Status: Acute Code(s): E78.5 - Hyperlipidemia, unspecified (4) Hypothyroidism: Status: Acute Code(s): E03.9 - Hypothyroidism, unspecified Plan 84-year-old female with past medical history of GERD, Parkinson's, hypertension, hyperlipidemia, seizure disorder, hypothyroidism, history of brain aneurysm, history of [place] who presented to [facility] with increased agitation, aggression, hallucinations and paranoia. Patient was transferred from a short- term rehab to [facility] where she was residing for [facility] after a fall with hip pain. Patient presented to the ED the day before for similar complaints, sent back to rehab on Zyprexa but patient refused to take this. Her urine was negative for UTI. No leukocytosis or anemia noted, no electrolyte imbalances. Creatinine noted to be 1.55 due to patient not drinking due to being felt that she was being poisoned. She was given IV fluids and her creatinine improved to 0.65. She had a CT on 06/16 which revealed no acute intracranial abnormalities. Agitation/aggression Admitted from SNF after short-term rehab for a fall Treatment per psychiatric team Parkinson's Sinemet 25/100mg 2 tabs t.i.d. and 1 tab extended release at bedtime Encouraged medication compliance GERD Continue Pepcid at HS HTN/HLD Continue Stephani Zayas. DC hydrochlorothiazide due to increased fall risk. Restart if blood pressure continues to be elevated Chronic arthritis pain Patient is followed outpatient MD who prescribed prednisone 5 mg daily. Patient has been tapered down and subsequently ordered to continue 5 mg daily with the eventual plan to wean to 2.5 daily per son's report. Tylenol as needed for pain Naprosyn DC due to increased bleeding risk Recent short-term rehab stay for hip pain, plans to discharge to son's home with services prior to this admission Seizure disorder No recent seizures Continuing Keppra daily Hypothyroidism Continue levothyroxine 50 mcg daily Labs pending History of [place] Continue daily aspirin and beta lionel History of brain aneurysm Recent head CT negative for any acute intracranial abnormalities. 06/20: continue current management and treatment plan. Reason for continued inpatient stay Substantial Risk for: inability to function and rapid decompensation Time Spent With Patient Time: Total time managing care of this patient today ____ minutes.
[2025-06-20 20:00] VITALS: BP 160/77; PULSE 85; RESP 18; TEMP 36.9; O2SAT 95
[2025-06-20] MEDS: Carbidopa/Levodopa CR 25/100 TABLET.ER 1 TAB PO (20:28)
[2025-06-21 08:00] VITALS: BP 152/63; PULSE 89
[2025-06-21] MEDS: Venlafaxine HCl ER 150 MG CAP.ER.24H PO (09:13)
[2025-06-21] MEDS: Metoprolol Succinate ER 12.5 MG HALFTAB.ER.24H PO (09:13)
--- NOTE | 2025-06-21 12:24 | P.PNPSI_ITS ---
Subjective Subjective Date of Service: 06/21/25 Reason For Visit: decompensation Interim History: Patient today is different than yesterday. She is anxious, paranoid, agitated. She barricaded herself in her room. Says they want to steal my things. They want me to do the things they want me to do. She remains confused. She has a 1:1. She took Zyprexa PRN earlier but continues paranoid and anxious. Attempted to give her Seroquel dose 25 mg but patient refused. Denies SI. Mental Status Exam Mental Status Exam Narrative: General appearance: casually appropriate dress. Good hygiene.? Eye contact: WNL. Musculoskeletal: Anxious Manner/behavior: uncooperative Speech:? soft Language: No receptive or expressive language impairment? Mood: leave me alone Affect: anxious, labile, apprehensive, afraid. Thought process/associations: poverty of thought? Thought content:?anxious Hallucinations: visual ? Suicidality/self-destructive behavior: Started saying she wants to hurt herself? Homicidally/violence: threatening.? Reliability: poor.? ? Judgment: impaired.? ? Insight: impaired Cognition: disoriented Attention, concentration and fund of knowledge are poor Impulse control and emotional regulation: impaired Intelligence estimate: average.? Diagnostics Vital Signs (24Hr): Vital Signs - 24 hr 06/20/25 20:00 06/21/25 08:00 Temperature 98.5 F Pulse Rate 85 89 Respiratory Rate 18 Blood Pressure 160/77 H 152/63 H Pulse Oximetry 95 Oxygen Delivery Method Room Air BMI result Body Mass Index 22.5 Labs 06/20/25 07:49 Labs: Laboratory Results - last 48 hr 06/20/25 07:49 Sodium 143 Potassium 4.5 Chloride 106 Carbon Dioxide 21 L Anion Gap 21 H BUN 23 H Creatinine 0.83 Estim Creat Clear Calc 33.2 Estimated GFR > 60 Random Glucose 112 Estimat Average Glucose 137 Hemoglobin A1c % 6.4 H Calcium 9.8 Total Bilirubin 1.1 H AST 49 H ALT < 6 Alkaline Phosphatase 78 Total Protein 7.9 Albumin 4.4 Triglycerides 108 Cholesterol 200 H LDL Cholesterol, Calc 97 HDL Cholesterol 82 TSH 3.44 Medications Medications Current Medications Acetaminophen (Acetaminophen 325 Mg Tablet) 650 mg PO Q6H PRN PRN Reason: Headache/Pain, Scale 1-10 Al Hydroxide/Mg Hydroxide (Magnesium Hydrox/Alum Hydrox 30 Ml Oral.Susp) 30 ml PO Q6H PRN PRN Reason: Heartburn/Nausea Amlodipine Besylate (Amlodipine Besylate 5 Mg Tablet) 5 mg PO DAILY [facility]; Protocol Last Admin: 06/21/25 09:12 Dose: 5 mg Aspirin (Aspirin 81 Mg Tab.Chew) 81 mg PO DAILY [facility] Last Admin: 06/21/25 09:12 Dose: 81 mg Atorvastatin Calcium (Atorvastatin Calcium 40 Mg Tablet) 40 mg PO BEDTIME [facility] Last Admin: 06/20/25 20:28 Dose: 40 mg Calcium Carbonate/Cholecalciferol (Calcium + Vitamin D 250 Mg Tablet) 500 mg PO BID [facility] Last Admin: 06/21/25 09:21 Dose: Not Given Carbidopa/Levodopa (Carbidopa/Levodopa Cr 25/100 Tablet.Er) 1 tab PO BEDTIME [facility] Last Admin: 06/20/25 20:28 Dose: 1 tab Carbidopa/Levodopa (Carbidopa/Levodopa 25/100 Tablet) 2 tab PO TID@0700,1200,1700 [facility] Last Admin: 06/21/25 11:47 Dose: 2 tab Cyanocobalamin (Cyanocobalamin (Vitamin B-12) 500 Mcg Tablet) 500 mcg PO DAILY [facility] Last Admin: 06/21/25 09:21 Dose: Not Given Docusate Sodium (Docusate Sodium 100 Mg Capsule) 100 mg PO TID PRN PRN Reason: Constipation Famotidine (Famotidine 20 Mg Tablet) 20 mg PO BEDTIME [facility] Last Admin: 06/20/25 20:28 Dose: 20 mg Levetiracetam (Levetiracetam 500 Mg Tablet) 500 mg PO BID [facility] Last Admin: 06/21/25 09:12 Dose: 500 mg Levothyroxine Sodium (Levothyroxine Sodium 50 Mcg Tablet) 50 mcg PO DAILY@0600 [facility] Last Admin: 06/21/25 06:12 Dose: 50 mcg Magnesium Hydroxide (Milk Of Magnesia 30 Ml Oral.Susp) 30 ml PO DAILY PRN PRN Reason: Constipation Metoprolol Succinate (Metoprolol Succinate Er 12.5 Mg Halftab.Er.24h) 12.5 mg PO DAILY [facility]; Protocol Last Admin: 06/21/25 09:13 Dose: 12.5 mg Nicotine Polacrilex (Nicotine Polacrilex 2 Mg Gum) 4 mg BUCCAL Q2H PRN PRN Reason: Nicotine Cravings Nitroglycerin (Nitroglycerin 0.4 Mg Tab.Subl) 0.5 mg SUBLINGUAL Q5M PRN PRN Reason: Chest Pain Olanzapine (Olanzapine 2.5 Mg Tablet) 2.5 mg PO TID PRN PRN Reason: agitation Last Admin: 06/21/25 11:47 Dose: 2.5 mg Prednisone (Prednisone 5 Mg Tablet) 5 mg PO DAILY [facility] Last Admin: 06/21/25 09:12 Dose: 5 mg Trazodone HCl (Trazodone Hcl 50 Mg Tablet) 50 mg PO BEDTIME MRX1 PRN PRN Reason: Insomnia Last Admin: 06/20/25 22:36 Dose: 50 mg Valsartan (Valsartan 80 Mg Tablet) 80 mg PO DAILY [facility]; Protocol Last Admin: 06/21/25 09:13 Dose: 80 mg Venlafaxine HCl (Venlafaxine Hcl Er 150 Mg Cap.Er.24h) 150 mg PO DAILY [facility] Last Admin: 06/21/25 09:13 Dose: 150 mg Allergies Allergies Allergy/AdvReac Type Severity Reaction Status Date / Time No Known Allergies Allergy Verified 06/18/25 19:01 Assessment & Plan Assessment & Plan (1) Parkinsons disease: Status: Acute Code(s): G20 - Parkinson's disease (2) HTN (hypertension): Status: Acute Code(s): I10 - Essential (primary) hypertension (3) HLD (hyperlipidemia): Status: Acute Code(s): E78.5 - Hyperlipidemia, unspecified (4) Hypothyroidism: Status: Acute Code(s): E03.9 - Hypothyroidism, unspecified Plan 84-year-old female with past medical history of GERD, Parkinson's, hypertension, hyperlipidemia, seizure disorder, hypothyroidism, history of brain aneurysm, history of PA who presented to [facility] with increased agitation, aggression, hallucinations and paranoia. Patient was transferred from a short- term rehab to [facility] where she was residing for [facility] after a fall with hip pain. Patient presented to the ED the day before for similar complaints, sent back to rehab on Zyprexa but patient refused to take this. Her urine was negative for UTI. No leukocytosis or anemia noted, no electrolyte imbalances. Creatinine noted to be 1.55 due to patient not drinking due to being felt that she was being poisoned. She was given IV fluids and her creatinine improved to 0.65. She had a CT on 06/16 which revealed no acute intracranial abnormalities. Agitation/aggression Admitted from SNF after short-term rehab for a fall Treatment per psychiatric team Parkinson's Sinemet 25/100mg 2 tabs t.i.d. and 1 tab extended release at bedtime Encouraged medication compliance GERD Continue Pepcid at HS HTN/HLD Continue Stephani Zayas. DC hydrochlorothiazide due to increased fall risk. Restart if blood pressure continues to be elevated Chronic arthritis pain Patient is followed outpatient MD who prescribed prednisone 5 mg daily. Patient has been tapered down and subsequently ordered to continue 5 mg daily with the eventual plan to wean to 2.5 daily per son's report. Tylenol as needed for pain Naprosyn DC due to increased bleeding risk Recent short-term rehab stay for hip pain, plans to discharge to son's home with services prior to this admission Seizure disorder No recent seizures Continuing Keppra daily Hypothyroidism Continue levothyroxine 50 mcg daily Labs pending History of PA Continue daily aspirin and beta lionel History of brain aneurysm Recent head CT negative for any acute intracranial abnormalities. 06/20: continue current management and treatment plan. 06/21: Continue 1:1. Attempt Seroquel in place of Zyprexa. Reason for continued inpatient stay Substantial Risk for: inability to function and rapid decompensation Time Spent With Patient Time: Total time managing care of this patient today ____ minutes.
[2025-06-21 20:00] VITALS: BP 145/66; PULSE 65; RESP 16; TEMP 36.3; O2SAT 98
[2025-06-22 08:00] VITALS: BP 158/92; PULSE 63; RESP 14; TEMP 36.9; O2SAT 97
--- NOTE | 2025-06-22 08:53 | HO.HCP ---
Health Care Proxy Invocation Health Care Proxy Declaration: Farida Bedolla , on the date cited below, have determined that, Tequila Dalton_, lacks the capacity to make or communicate, informed health care decision. This determination is made in accordance with accepted standards of medical judgment and pursuant to M[place] c. 201[place], the [place] Health Care Proxy Law. The cause, nature, extent and probable duration of the patient's inapacity are described below: Cause:inability to retain new information, not oriented to place, month, year nor situation Nature:major neurocognitive disorder Extent:affecting every aspect of functioning Probable Duration of Patient's Incapacity: not expected to be regained.
[2025-06-22] MEDS: Metoprolol Succinate ER 12.5 MG HALFTAB.ER.24H PO (08:56)
[2025-06-22] MEDS: Venlafaxine HCl ER 150 MG CAP.ER.24H PO (08:57)
[2025-06-22] MEDS: Calcium + Vitamin D 250 MG TABLET 500 MG PO ×2 (08:57→20:52)
--- NOTE | 2025-06-22 10:22 | P.PNPSI_ITS ---
Subjective Subjective Date of Service: 06/22/25 Reason For Visit: decompensation Subjective Notes: Conditional Voluntary Healthcare Proxy: Yes Interim History: Pt slept through the night. She is in bed, more alert and has taken medications this morning. Pt thinks she is at rehab for physical therapy. She is able to tell month and year. She appears less suspicious and paranoid. Spoke with her son Tonny, who is HCP, who reports pt increasingly more confused and combative. Tonny reports plan is for pt to return back home with him. we will have family meeting soon. Mental Status Exam Mental Status Exam Narrative: Appearance:thin, wearing hospital gown, fair hygiene, in NAD Behavior: calmer Psychomotor: no agitation or retardation noted. Speech: mostly clear, normal rate/rhythm, soft volume, spontaneous TP: linear TC: feeling tired Mood: okay Affect: constricted. SI: denies HI: denies VH/AH: no overt signs Delusions: no overt delusional content reported Insight/judgment: impaired x 2. Memory/cog: alert, oriented to month and year, not oriented to situation. Diagnostics Vital Signs (24Hr): Vital Signs - 24 hr 06/21/25 20:00 06/22/25 08:00 Temperature 97.3 F 98.4 F Pulse Rate 65 63 Respiratory Rate 16 14 Blood Pressure 145/66 H 158/92 H Pulse Oximetry 98 97 Oxygen Delivery Method Room Air Room Air BMI result Body Mass Index 22.5 Labs 06/20/25 07:49 Medications Medications Current Medications Acetaminophen (Acetaminophen 325 Mg Tablet) 650 mg PO Q6H PRN PRN Reason: Headache/Pain, Scale 1-10 Al Hydroxide/Mg Hydroxide (Magnesium Hydrox/Alum Hydrox 30 Ml Oral.Susp) 30 ml PO Q6H PRN PRN Reason: Heartburn/Nausea Amlodipine Besylate (Amlodipine Besylate 5 Mg Tablet) 5 mg PO DAILY [facility]; Protocol Last Admin: 06/22/25 08:57 Dose: 5 mg Aspirin (Aspirin 81 Mg Tab.Chew) 81 mg PO DAILY [facility] Last Admin: 06/22/25 08:57 Dose: 81 mg Atorvastatin Calcium (Atorvastatin Calcium 40 Mg Tablet) 40 mg PO BEDTIME [facility] Last Admin: 06/21/25 22:09 Dose: Not Given Calcium Carbonate/Cholecalciferol (Calcium + Vitamin D 250 Mg Tablet) 500 mg PO BID [facility] Last Admin: 06/22/25 08:57 Dose: 500 mg Carbidopa/Levodopa (Carbidopa/Levodopa Cr 25/100 Tablet.Er) 1 tab PO BEDTIME [facility] Last Admin: 06/21/25 22:10 Dose: Not Given Carbidopa/Levodopa (Carbidopa/Levodopa 25/100 Tablet) 2 tab PO TID@0700,1200,1700 [facility] Last Admin: 06/22/25 08:57 Dose: 2 tab Cyanocobalamin (Cyanocobalamin (Vitamin B-12) 500 Mcg Tablet) 500 mcg PO DAILY [facility] Last Admin: 06/22/25 08:57 Dose: 500 mcg Docusate Sodium (Docusate Sodium 100 Mg Capsule) 100 mg PO TID PRN PRN Reason: Constipation Famotidine (Famotidine 20 Mg Tablet) 20 mg PO BEDTIME [facility] Last Admin: 06/21/25 22:10 Dose: Not Given Levetiracetam (Levetiracetam 500 Mg Tablet) 500 mg PO BID [facility] Last Admin: 06/22/25 08:57 Dose: 500 mg Levothyroxine Sodium (Levothyroxine Sodium 50 Mcg Tablet) 50 mcg PO DAILY@0600 [facility] Last Admin: 06/22/25 06:01 Dose: Not Given Magnesium Hydroxide (Milk Of Magnesia 30 Ml Oral.Susp) 30 ml PO DAILY PRN PRN Reason: Constipation Metoprolol Succinate (Metoprolol Succinate Er 12.5 Mg Halftab.Er.24h) 12.5 mg PO DAILY [facility]; Protocol Last Admin: 06/22/25 08:56 Dose: 12.5 mg Nicotine Polacrilex (Nicotine Polacrilex 2 Mg Gum) 4 mg BUCCAL Q2H PRN PRN Reason: Nicotine Cravings Nitroglycerin (Nitroglycerin 0.4 Mg Tab.Subl) 0.5 mg SUBLINGUAL Q5M PRN PRN Reason: Chest Pain Olanzapine (Olanzapine 2.5 Mg Tablet) 2.5 mg PO TID PRN PRN Reason: agitation Last Admin: 06/21/25 11:47 Dose: 2.5 mg Prednisone (Prednisone 5 Mg Tablet) 5 mg PO DAILY [facility] Last Admin: 06/22/25 08:57 Dose: 5 mg Trazodone HCl (Trazodone Hcl 50 Mg Tablet) 50 mg PO BEDTIME MRX1 PRN PRN Reason: Insomnia Last Admin: 06/20/25 22:36 Dose: 50 mg Valsartan (Valsartan 80 Mg Tablet) 80 mg PO DAILY [facility]; Protocol Last Admin: 06/22/25 08:57 Dose: 80 mg Venlafaxine HCl (Venlafaxine Hcl Er 150 Mg Cap.Er.24h) 150 mg PO DAILY [facility] Last Admin: 06/22/25 08:57 Dose: 150 mg Allergies Allergies Allergy/AdvReac Type Severity Reaction Status Date / Time No Known Allergies Allergy Verified 06/18/25 19:01 Assessment & Plan Assessment & Plan (1) Major neurocognitive disorder due to multiple etiologies with behavioral disturbance: Status: Acute Code(s): F02.818 - Dementia in other diseases classified elsewhere, unspecified severity, with other behavioral disturbance Plan Mrs. Dalton is an 85 year-old woman with hx of dementia, Parkisons's who was brought from [facility] due to increase combative behaviors, increase paranoid ideas thinking staff at [facility] were trying to poison her. On the unit, pt continues to decline medications. Seemed somewhat somnolent. Later in evening more combative. PLAN 06/22 spoke with Tonny, pt's HCP and son. may consider rexulti as antipsychotic since it may not have as much impact on underlying movement disorder Parkinson's. pt appears less suspicious and paranoid today. more awake also. Reason for continued inpatient stay Substantial Risk for: inability to function Time Spent With Patient Time: Total time managing care of this patient today ____ minutes.
[2025-06-22 20:00] VITALS: BP 132/60; PULSE 64; RESP 16; TEMP 36.4; O2SAT 96
[2025-06-22] MEDS: Carbidopa/Levodopa CR 25/100 TABLET.ER 1 TAB PO (20:52)
[2025-06-23 08:00] VITALS: BP 136/71; PULSE 71; RESP 18; TEMP 36.6; O2SAT 97
[2025-06-23] MEDS: Metoprolol Succinate ER 12.5 MG HALFTAB.ER.24H PO (08:09)
[2025-06-23] MEDS: Calcium + Vitamin D 250 MG TABLET 500 MG PO ×2 (08:09→21:23)
[2025-06-23] MEDS: Venlafaxine HCl ER 150 MG CAP.ER.24H PO (08:09)
--- NOTE | 2025-06-23 09:12 | P.PNPSI_ITS ---
Subjective Subjective Date of Service: 06/23/25 Reason For Visit: decompensation Subjective Notes: Conditional Voluntary Interim History: Pt slept through the night. She presents as more paranoid, accusatory towards staff, yelling. Not able to be redirected, swinging at staff. She had IM olanzapine 5mg and valium 5mg IM. No injury during restraint. VS stable. Mental Status Exam Mental Status Exam Narrative: Appearance:thin, wearing hospital gown, fair hygiene, in NAD Behavior: guarded Psychomotor: no agitation or retardation noted. Speech: mostly clear, normal rate/rhythm, soft volume, spontaneous TP: linear TC: feeling tired Mood: get away from me! Affect: angry, paranoid/guarded. SI: denies HI: denies VH/AH: no overt signs Delusions:very paranoid towards staff. Insight/judgment: impaired x 2. Memory/cog: alert, oriented to month and year, not oriented to situation. Diagnostics Vital Signs (24Hr): Vital Signs - 24 hr 06/22/25 20:00 06/23/25 08:00 Temperature 97.5 F 97.8 F Pulse Rate 64 71 Respiratory Rate 16 18 Blood Pressure 132/60 136/71 Pulse Oximetry 96 97 Oxygen Delivery Method Room Air Room Air BMI result Body Mass Index 22.5 Labs 06/20/25 07:49 Medications Medications Current Medications Acetaminophen (Acetaminophen 325 Mg Tablet) 650 mg PO Q6H PRN PRN Reason: Headache/Pain, Scale 1-10 Al Hydroxide/Mg Hydroxide (Magnesium Hydrox/Alum Hydrox 30 Ml Oral.Susp) 30 ml PO Q6H PRN PRN Reason: Heartburn/Nausea Amlodipine Besylate (Amlodipine Besylate 5 Mg Tablet) 5 mg PO DAILY [facility]; Protocol Last Admin: 06/23/25 08:08 Dose: 5 mg Aspirin (Aspirin 81 Mg Tab.Chew) 81 mg PO DAILY [facility] Last Admin: 06/23/25 08:09 Dose: 81 mg Atorvastatin Calcium (Atorvastatin Calcium 40 Mg Tablet) 40 mg PO BEDTIME [facility] Last Admin: 06/22/25 20:52 Dose: 40 mg Calcium Carbonate/Cholecalciferol (Calcium + Vitamin D 250 Mg Tablet) 500 mg PO BID [facility] Last Admin: 06/23/25 08:09 Dose: 500 mg Carbidopa/Levodopa (Carbidopa/Levodopa Cr 25/100 Tablet.Er) 1 tab PO BEDTIME [facility] Last Admin: 06/22/25 20:52 Dose: 1 tab Carbidopa/Levodopa (Carbidopa/Levodopa 25/100 Tablet) 2 tab PO TID@0700,1200,1700 [facility] Last Admin: 06/23/25 06:19 Dose: 2 tab Cyanocobalamin (Cyanocobalamin (Vitamin B-12) 500 Mcg Tablet) 500 mcg PO DAILY [facility] Last Admin: 06/23/25 08:09 Dose: 500 mcg Docusate Sodium (Docusate Sodium 100 Mg Capsule) 100 mg PO TID PRN PRN Reason: Constipation Famotidine (Famotidine 20 Mg Tablet) 20 mg PO BEDTIME [facility] Last Admin: 06/22/25 20:52 Dose: 20 mg Levetiracetam (Levetiracetam 500 Mg Tablet) 500 mg PO BID [facility] Last Admin: 06/23/25 08:09 Dose: 500 mg Levothyroxine Sodium (Levothyroxine Sodium 50 Mcg Tablet) 50 mcg PO DAILY@0600 [facility] Last Admin: 06/23/25 06:20 Dose: 50 mcg Magnesium Hydroxide (Milk Of Magnesia 30 Ml Oral.Susp) 30 ml PO DAILY PRN PRN Reason: Constipation Metoprolol Succinate (Metoprolol Succinate Er 12.5 Mg Halftab.Er.24h) 12.5 mg PO DAILY [facility]; Protocol Last Admin: 06/23/25 08:09 Dose: 12.5 mg Nicotine Polacrilex (Nicotine Polacrilex 2 Mg Gum) 4 mg BUCCAL Q2H PRN PRN Reason: Nicotine Cravings Nitroglycerin (Nitroglycerin 0.4 Mg Tab.Subl) 0.5 mg SUBLINGUAL Q5M PRN PRN Reason: Chest Pain Olanzapine (Olanzapine 2.5 Mg Tablet) 2.5 mg PO TID PRN PRN Reason: agitation Last Admin: 06/21/25 11:47 Dose: 2.5 mg Prednisone (Prednisone 5 Mg Tablet) 5 mg PO DAILY [facility] Last Admin: 06/23/25 08:08 Dose: 5 mg Trazodone HCl (Trazodone Hcl 50 Mg Tablet) 50 mg PO BEDTIME MRX1 PRN PRN Reason: Insomnia Last Admin: 06/20/25 22:36 Dose: 50 mg Valsartan (Valsartan 80 Mg Tablet) 80 mg PO DAILY [facility]; Protocol Last Admin: 06/23/25 08:08 Dose: 80 mg Venlafaxine HCl (Venlafaxine Hcl Er 150 Mg Cap.Er.24h) 150 mg PO DAILY [facility] Last Admin: 06/23/25 08:09 Dose: 150 mg Allergies Allergies Allergy/AdvReac Type Severity Reaction Status Date / Time No Known Allergies Allergy Verified 06/18/25 19:01 Assessment & Plan Assessment & Plan (1) Major neurocognitive disorder due to multiple etiologies with behavioral disturbance: Status: Acute Code(s): F02.818 - Dementia in other diseases classified elsewhere, unspecified severity, with other behavioral disturbance Plan Mrs. Dalton is an 85 year-old woman with hx of dementia, Parkisons's who was brought from [facility] due to increase combative behaviors, increase paranoid ideas thinking staff at [facility] were trying to poison her. On the unit, pt continues to decline medications. Seemed somewhat somnolent. Later in evening more combative. PLAN 06/22 spoke with Tonny, pt's HCP and son. may consider rexulti as antipsychotic since it may not have as much impact on underlying movement disorder Parkinson's. pt appears less suspicious and paranoid today. more awake also. 06/23 started rexulti 0.5mg po daily. more agitated, paranoid, hitting staff. Needed chemical restraint olanzapine 5mg IM, valium 5mg IM. Reason for continued inpatient stay Substantial Risk for: inability to function Time Spent With Patient Time: Total time managing care of this patient today ____ minutes.
[2025-06-23] MEDS: OLANZapine 10 MG VIAL 5 MG IM (10:46)
[2025-06-23] MEDS: diazePAM 10 MG/2 ML CARTRIDGE 5 MG IM (10:47)
--- NOTE | 2025-06-23 11:19 | PC.NURSE ---
Pt paranoid and trying to exit seek, unable to redirect after multiple attempts. Pt repeatedly started hitting, kicking and biting staff, she tried picking up her walker and to hit staff. Provider aware, IM Olanzapine 5mg and Valium 5 mg given intramuscular patient tolerated injections. Family notified.
--- NOTE | 2025-06-23 12:45 | HO.PSYEVENT ---
Documented by User: Farida Pickard NP 06/24/25 08:50 Event Note Date of Service: 06/24/25 Psych Restraint Event Note: Pt increasingly more paranoid towards staff, walking towards door, not able to be redirected, attempting to hit staff when they came close to her, yelling. She received olanzapine 5mg IM and valium 5mg IM. There was a brief hold when administering IM medications. Starting time 10:46am-10:47am. Pt seen presents as calmer, VS stable, No injury reported nor noted during chemical or brief hold. Time Spent With Patient Time: Total time managing care of this patient today ____ minutes. Documented by User: Randy Cárdenas MD 06/26/25 15:45 Event Note Date of Service: 06/26/25
[2025-06-23] MEDS: Carbidopa/Levodopa CR 25/100 TABLET.ER 1 TAB PO (21:24)
--- NOTE | 2025-06-24 09:14 | PC.NURSE ---
Pt paranoid states You all are trying to kill me , she refused all her morning medications. provider Farida delgadillo.
--- NOTE | 2025-06-24 09:33 | P.PNPSI_ITS ---
Subjective Subjective Date of Service: 06/24/25 Reason For Visit: decompensation Subjective Notes: Conditional Voluntary Interim History: Pt very paranoid, mistrustful of the staff. Again very agitated in the morning when RN approached her with medications. Swinging at staff, not able to be redirected and attempting to elope and walk without awareness of unsteady gait and high risk for fall. She received olanzapine 5mg IM. She presented calmer later but still very paranoid and suspicious, asking for her son. SBP 180-150 She is not consistently taking medications. Medication Compliance: Intermittent Mental Status Exam Mental Status Exam Narrative: Appearance:thin, wearing hospital gown, fair hygiene, in NAD Behavior: guarded Psychomotor: no agitation or retardation noted. Speech: mostly clear, normal rate/rhythm, soft volume, spontaneous TP: linear TC: feeling tired Mood: get away from me! Affect: angry, paranoid/guarded. SI: denies HI: denies VH/AH: no overt signs Delusions:very paranoid towards staff. Insight/judgment: impaired x 2. Memory/cog: alert, oriented to month and year, not oriented to situation. Diagnostics Vital Signs (24Hr): BMI result Body Mass Index 22.5 Labs 06/20/25 07:49 Medications Medications Current Medications Acetaminophen (Acetaminophen 325 Mg Tablet) 650 mg PO Q6H PRN PRN Reason: Headache/Pain, Scale 1-10 Al Hydroxide/Mg Hydroxide (Magnesium Hydrox/Alum Hydrox 30 Ml Oral.Susp) 30 ml PO Q6H PRN PRN Reason: Heartburn/Nausea Amlodipine Besylate (Amlodipine Besylate 5 Mg Tablet) 5 mg PO DAILY [facility]; Protocol Last Admin: 06/24/25 09:12 Dose: Not Given Aspirin (Aspirin 81 Mg Tab.Chew) 81 mg PO DAILY [facility] Last Admin: 06/24/25 09:12 Dose: Not Given Atorvastatin Calcium (Atorvastatin Calcium 40 Mg Tablet) 40 mg PO BEDTIME [facility] Last Admin: 06/23/25 21:23 Dose: 40 mg Brexpiprazole (Brexpiprazole 1 Mg Tablet) 0.5 mg PO DAILY [facility] Last Admin: 06/24/25 09:12 Dose: Not Given Calcium Carbonate/Cholecalciferol (Calcium + Vitamin D 250 Mg Tablet) 500 mg PO BID [facility] Last Admin: 06/24/25 09:12 Dose: Not Given Carbidopa/Levodopa (Carbidopa/Levodopa Cr 25/100 Tablet.Er) 1 tab PO BEDTIME [facility] Last Admin: 06/23/25 21:24 Dose: 1 tab Carbidopa/Levodopa (Carbidopa/Levodopa 25/100 Tablet) 2 tab PO TID@0700,1200,1700 [facility] Last Admin: 06/24/25 06:43 Dose: 2 tab Cyanocobalamin (Cyanocobalamin (Vitamin B-12) 500 Mcg Tablet) 500 mcg PO DAILY [facility] Last Admin: 06/24/25 09:12 Dose: Not Given Docusate Sodium (Docusate Sodium 100 Mg Capsule) 100 mg PO TID PRN PRN Reason: Constipation Famotidine (Famotidine 20 Mg Tablet) 20 mg PO BEDTIME [facility] Last Admin: 06/23/25 21:23 Dose: 20 mg Levetiracetam (Levetiracetam 500 Mg Tablet) 500 mg PO BID [facility] Last Admin: 06/24/25 09:12 Dose: Not Given Levothyroxine Sodium (Levothyroxine Sodium 50 Mcg Tablet) 50 mcg PO DAILY@0600 [facility] Last Admin: 06/24/25 06:43 Dose: 50 mcg Magnesium Hydroxide (Milk Of Magnesia 30 Ml Oral.Susp) 30 ml PO DAILY PRN PRN Reason: Constipation Metoprolol Succinate (Metoprolol Succinate Er 12.5 Mg Halftab.Er.24h) 12.5 mg PO DAILY [facility]; Protocol Last Admin: 06/24/25 09:12 Dose: Not Given Nicotine Polacrilex (Nicotine Polacrilex 2 Mg Gum) 4 mg BUCCAL Q2H PRN PRN Reason: Nicotine Cravings Nitroglycerin (Nitroglycerin 0.4 Mg Tab.Subl) 0.5 mg SUBLINGUAL Q5M PRN PRN Reason: Chest Pain Olanzapine (Olanzapine 2.5 Mg Tablet) 2.5 mg PO TID PRN PRN Reason: agitation Last Admin: 06/21/25 11:47 Dose: 2.5 mg Prednisone (Prednisone 5 Mg Tablet) 5 mg PO DAILY [facility] Last Admin: 06/24/25 09:13 Dose: Not Given Trazodone HCl (Trazodone Hcl 50 Mg Tablet) 50 mg PO BEDTIME MRX1 PRN PRN Reason: Insomnia Last Admin: 06/23/25 21:23 Dose: 50 mg Valsartan (Valsartan 80 Mg Tablet) 80 mg PO DAILY [facility]; Protocol Last Admin: 06/24/25 09:13 Dose: Not Given Venlafaxine HCl (Venlafaxine Hcl Er 75 Mg Cap.Er.24h) 75 mg PO DAILY [facility] Last Admin: 06/24/25 09:13 Dose: Not Given Allergies Allergies Allergy/AdvReac Type Severity Reaction Status Date / Time No Known Allergies Allergy Verified 06/18/25 19:01 Assessment & Plan Assessment & Plan (1) Major neurocognitive disorder due to multiple etiologies with behavioral disturbance: Status: Acute Code(s): F02.818 - Dementia in other diseases classified elsewhere, unspecified severity, with other behavioral disturbance Plan Mrs. Dalton is an 85 year-old woman with hx of dementia, Parkisons's who was brought from [facility] due to increase combative behaviors, increase paranoid ideas thinking staff at [facility] were trying to poison her. On the unit, pt continues to decline medications. Seemed somewhat somnolent. Later in evening more combative. PLAN 06/22 spoke with Tonny pt's HCP and son. may consider rexulti as antipsychotic since it may not have as much impact on underlying movement disorder Parkinson's. pt appears less suspicious and paranoid today. more awake also. 06/23 started rexulti 0.5mg po daily. more agitated, paranoid, hitting staff. Needed chemical restraint olanzapine 5mg IM, valium 5mg IM. 06/24 continues to present as very paranoid, agitated, again required IM olanzapine 5mg. calmer, no over sedated after but still very paranoid. She does not take medications consistently, which then affect his gait. SBP elevated between 150-180's. continue one to one due to increase risk for fall as she is so agitated and attempting to ambulate/run with no awareness. Reason for continued inpatient stay Substantial Risk for: inability to function Time Spent With Patient Time: Total time managing care of this patient today ____ minutes.
--- NOTE | 2025-06-24 09:53 | PC.NURSE ---
Pt refused flu vaccine.
[2025-06-24] MEDS: OLANZapine 10 MG VIAL 5 MG IM (09:54)
--- NOTE | 2025-06-24 10:01 | HO.PSYEVENT ---
Documented by User: Farida Pickard NP 06/25/25 08:56 Event Note Date of Service: 06/25/25 Psych Restraint Event Note: Pt increasingly more paranoid, reporting staff is trying to harm her, swinging at staff, not able to be redirected. She received olanzapine 5mg IM. She appeared calmer, not oversedated. Still paranoid but did allow one to one to be with her and slightly more trusting of her. VS stable. No signs of respiratory distress. No injuries during chemical or physical hold. Time Spent With Patient Time: Total time managing care of this patient today 10 minutes. Documented by User: Randy Cárdenas MD 06/26/25 13:20 Event Note Date of Service: 06/26/25
--- NOTE | 2025-06-24 10:02 | PC.NURSE ---
Pt paranoid stating your all going to kill me she started punching, kicking and hitting staff, unable to redirect. IM Olanzapine 5mg given to right deltoid at 9:54. pt tolerated procedure
--- NOTE | 2025-06-24 10:24 | PC.NURSE ---
Pt's son Tonny notified via phone call of the patient's restraint.
[2025-06-24 20:00] VITALS: BP 149/65; PULSE 74; RESP 18; TEMP 36.3; O2SAT 74
[2025-06-24] MEDS: Calcium + Vitamin D 250 MG TABLET 500 MG PO (20:36)
[2025-06-24] MEDS: Carbidopa/Levodopa CR 25/100 TABLET.ER 1 TAB PO (20:37)
[2025-06-25 09:41] VITALS: BP 123/94; PULSE 107; RESP 20; TEMP 36.1
--- NOTE | 2025-06-25 09:41 | P.PNPSI_ITS ---
Subjective Subjective Date of Service: 06/25/25 Reason For Visit: decompensation Subjective Notes: Conditional Voluntary Healthcare Proxy: Yes Interim History: Pt sleeping through the night. She appears calmer today, less paranoid. No agitation today nor need for IM. She did take medications with encouragement. Not oriented to situation. SBP better today. pending family meeting. Mental Status Exam Mental Status Exam Narrative: Appearance:thin, wearing hospital gown, fair hygiene, in NAD Behavior: guarded Psychomotor: no agitation or retardation noted. Speech: mostly clear, normal rate/rhythm, soft volume, spontaneous TP: linear TC: feeling tired Mood: okay Affect: still paranoid/guarded. SI: denies HI: denies VH/AH: no overt signs Delusions:very paranoid towards staff. Insight/judgment: impaired x 2. Memory/cog: alert, oriented to month and year, not oriented to situation. Diagnostics Vital Signs (24Hr): Vital Signs - 24 hr 06/24/25 20:00 Temperature 97.3 F Pulse Rate 74 Respiratory Rate 18 Blood Pressure 149/65 H Pulse Oximetry 74 L Oxygen Delivery Method Room Air BMI result Body Mass Index 22.5 Labs 06/20/25 07:49 Medications Medications Current Medications Acetaminophen (Acetaminophen 325 Mg Tablet) 650 mg PO Q6H PRN PRN Reason: Headache/Pain, Scale 1-10 Al Hydroxide/Mg Hydroxide (Magnesium Hydrox/Alum Hydrox 30 Ml Oral.Susp) 30 ml PO Q6H PRN PRN Reason: Heartburn/Nausea Amlodipine Besylate (Amlodipine Besylate 5 Mg Tablet) 5 mg PO DAILY [facility]; Protocol Last Admin: 06/24/25 09:12 Dose: Not Given Aspirin (Aspirin 81 Mg Tab.Chew) 81 mg PO DAILY [facility] Last Admin: 06/24/25 09:12 Dose: Not Given Atorvastatin Calcium (Atorvastatin Calcium 40 Mg Tablet) 40 mg PO BEDTIME [facility] Last Admin: 06/24/25 20:36 Dose: 40 mg Brexpiprazole (Brexpiprazole 1 Mg Tablet) 0.5 mg PO DAILY [facility] Last Admin: 06/24/25 09:12 Dose: Not Given Calcium Carbonate/Cholecalciferol (Calcium + Vitamin D 250 Mg Tablet) 500 mg PO BID [facility] Last Admin: 06/24/25 20:36 Dose: 500 mg Carbidopa/Levodopa (Carbidopa/Levodopa Cr 25/100 Tablet.Er) 1 tab PO BEDTIME [facility] Last Admin: 06/24/25 20:37 Dose: 1 tab Carbidopa/Levodopa (Carbidopa/Levodopa 25/100 Tablet) 2 tab PO TID@0700,1200,1700 [facility] Last Admin: 06/25/25 06:25 Dose: 2 tab Cyanocobalamin (Cyanocobalamin (Vitamin B-12) 500 Mcg Tablet) 500 mcg PO DAILY [facility] Last Admin: 06/24/25 09:12 Dose: Not Given Docusate Sodium (Docusate Sodium 100 Mg Capsule) 100 mg PO TID PRN PRN Reason: Constipation Famotidine (Famotidine 20 Mg Tablet) 20 mg PO BEDTIME [facility] Last Admin: 06/24/25 20:37 Dose: 20 mg Levetiracetam (Levetiracetam 500 Mg Tablet) 500 mg PO BID [facility] Last Admin: 06/24/25 20:36 Dose: 500 mg Levothyroxine Sodium (Levothyroxine Sodium 50 Mcg Tablet) 50 mcg PO DAILY@0600 [facility] Last Admin: 06/25/25 06:25 Dose: 50 mcg Magnesium Hydroxide (Milk Of Magnesia 30 Ml Oral.Susp) 30 ml PO DAILY PRN PRN Reason: Constipation Metoprolol Succinate (Metoprolol Succinate Er 12.5 Mg Halftab.Er.24h) 12.5 mg PO DAILY [facility]; Protocol Last Admin: 06/24/25 09:12 Dose: Not Given Nicotine Polacrilex (Nicotine Polacrilex 2 Mg Gum) 4 mg BUCCAL Q2H PRN PRN Reason: Nicotine Cravings Nitroglycerin (Nitroglycerin 0.4 Mg Tab.Subl) 0.5 mg SUBLINGUAL Q5M PRN PRN Reason: Chest Pain Olanzapine (Olanzapine 2.5 Mg Tablet) 2.5 mg PO TID PRN PRN Reason: agitation Last Admin: 06/24/25 16:47 Dose: 2.5 mg Prednisone (Prednisone 5 Mg Tablet) 5 mg PO DAILY [facility] Last Admin: 06/24/25 09:13 Dose: Not Given Trazodone HCl (Trazodone Hcl 50 Mg Tablet) 50 mg PO BEDTIME MRX1 PRN PRN Reason: Insomnia Last Admin: 06/24/25 20:36 Dose: 50 mg Valsartan (Valsartan 80 Mg Tablet) 80 mg PO DAILY [facility]; Protocol Last Admin: 06/24/25 09:13 Dose: Not Given Venlafaxine HCl (Venlafaxine Hcl Er 75 Mg Cap.Er.24h) 75 mg PO DAILY [facility] Last Admin: 06/24/25 09:13 Dose: Not Given Allergies Allergies Allergy/AdvReac Type Severity Reaction Status Date / Time No Known Allergies Allergy Verified 06/18/25 19:01 Assessment & Plan Assessment & Plan (1) Major neurocognitive disorder due to multiple etiologies with behavioral disturbance: Status: Acute Code(s): F02.818 - Dementia in other diseases classified elsewhere, unspecified severity, with other behavioral disturbance Plan Mrs. Dalton is an 85 year-old woman with hx of dementia, Parkisons's who was brought from [facility] due to increase combative behaviors, increase paranoid ideas thinking staff [facility]. On the unit, pt continues to decline medications. Seemed somewhat somnolent. Later in evening more combative. PLAN 06/22 spoke with Tonny, pt's HCP and son. may consider rexulti as antipsychotic since it may not have as much impact on underlying movement disorder Parkinson's. pt appears less suspicious and paranoid today. more awake also. 06/23 started rexulti 0.5mg po daily. more agitated, paranoid, hitting staff. Needed chemical restraint olanzapine 5mg IM, valium 5mg IM. 06/24 continues to present as very paranoid, agitated, again required IM olanzapine 5mg. calmer, no over sedated after but still very paranoid. She does not take medications consistently, which then affect his gait. SBP elevated between 150-180's. continue one to one due to increase risk for fall as she is so agitated and attempting to ambulate/run with no awareness. 06/25 calmer, still paranoid, did take some medications today, awaiting how effective for paranoia rexulti is. Reason for continued inpatient stay Substantial Risk for: inability to function Time Spent With Patient Time: Total time managing care of this patient today ____ minutes.
[2025-06-25] MEDS: Metoprolol Succinate ER 12.5 MG HALFTAB.ER.24H PO (10:26)
[2025-06-25] MEDS: Calcium + Vitamin D 250 MG TABLET 500 MG PO ×2 (10:27→20:47)
[2025-06-25] MEDS: Venlafaxine HCl ER 75 MG CAP.ER.24H PO (10:27)
[2025-06-25 10:30] VITALS: O2SAT 97
[2025-06-25 20:00] VITALS: BP 144/63; PULSE 63; RESP 18; TEMP 36.6; O2SAT 97
[2025-06-25] MEDS: Carbidopa/Levodopa CR 25/100 TABLET.ER 1 TAB PO (20:47)
[2025-06-26 08:00] VITALS: BP 153/66; PULSE 60; RESP 16; TEMP 36.4; O2SAT 98
[2025-06-26] MEDS: Calcium + Vitamin D 250 MG TABLET 500 MG PO ×2 (09:12→20:48)
[2025-06-26] MEDS: Venlafaxine HCl ER 75 MG CAP.ER.24H PO (09:14)
[2025-06-26] MEDS: Metoprolol Succinate ER 12.5 MG HALFTAB.ER.24H PO (09:14)
--- NOTE | 2025-06-26 09:37 | HO.PSYCHPN ---
Subjective Subjective Date of Service: 06/26/25 Reason For Visit: decompensation Subjective Notes: Conditional Voluntary Healthcare Proxy: Yes Interim History: Pt sleeping through the night. In the morning she did agree to take medication but as morning went by she became much more paranoid towards staff and this rfp writer stating that we were lying to her and she was not in a hospital. Son came to see her and she took medications from him. VS stable. still very suspicious and paranoid. Review of Systems Review of Systems Limited due to cognition Mental Status Exam Mental Status Exam Narrative: Appearance:thin, wearing hospital gown, fair hygiene, in NAD Behavior: guarded Psychomotor: no agitation or retardation noted. Speech: mostly clear, normal rate/rhythm, soft volume, spontaneous TP: linear TC: feeling tired Mood: get away from me!!! Affect: still paranoid/guarded. SI: denies HI: denies VH/AH: no overt signs Delusions:very paranoid towards staff. Insight/judgment: impaired x 2. Memory/cog: alert, oriented to month and year, not oriented to situation. Diagnostics Vital Signs (24Hr): Vital Signs - 24 hr 06/25/25 09:41 06/25/25 10:30 06/25/25 20:00 Temperature 96.9 F 97.8 F Pulse Rate 107 H 63 Respiratory Rate 20 18 Blood Pressure 123/94 H 144/63 H Pulse Oximetry 97 97 Oxygen Delivery Method Room Air Room Air Room Air 06/26/25 08:00 Temperature 97.6 F Pulse Rate 60 Respiratory Rate 16 Blood Pressure 153/66 H Pulse Oximetry 98 Oxygen Delivery Method Room Air BMI result Body Mass Index 22.5 Labs 06/20/25 07:49 Medications Medications Current Medications Acetaminophen (Acetaminophen 325 Mg Tablet) 650 mg PO Q6H PRN PRN Reason: Headache/Pain, Scale 1-10 Al Hydroxide/Mg Hydroxide (Magnesium Hydrox/Alum Hydrox 30 Ml Oral.Susp) 30 ml PO Q6H PRN PRN Reason: Heartburn/Nausea Amlodipine Besylate (Amlodipine Besylate 5 Mg Tablet) 5 mg PO DAILY [facility]; Protocol Last Admin: 06/26/25 09:14 Dose: 5 mg Aspirin (Aspirin 81 Mg Tab.Chew) 81 mg PO DAILY [facility] Last Admin: 06/26/25 09:13 Dose: 81 mg Atorvastatin Calcium (Atorvastatin Calcium 40 Mg Tablet) 40 mg PO BEDTIME [facility] Last Admin: 06/25/25 20:47 Dose: 40 mg Brexpiprazole (Brexpiprazole 1 Mg Tablet) 0.5 mg PO DAILY [facility] Last Admin: 06/26/25 09:12 Dose: 0.5 mg Calcium Carbonate/Cholecalciferol (Calcium + Vitamin D 250 Mg Tablet) 500 mg PO BID [facility] Last Admin: 06/26/25 09:12 Dose: 500 mg Carbidopa/Levodopa (Carbidopa/Levodopa Cr 25/100 Tablet.Er) 1 tab PO BEDTIME [facility] Last Admin: 06/25/25 20:47 Dose: 1 tab Carbidopa/Levodopa (Carbidopa/Levodopa 25/100 Tablet) 2 tab PO TID@0700,1200,1700 [facility] Last Admin: 06/26/25 06:40 Dose: 2 tab Cyanocobalamin (Cyanocobalamin (Vitamin B-12) 500 Mcg Tablet) 500 mcg PO DAILY [facility] Last Admin: 06/26/25 09:13 Dose: 500 mcg Docusate Sodium (Docusate Sodium 100 Mg Capsule) 100 mg PO TID PRN PRN Reason: Constipation Famotidine (Famotidine 20 Mg Tablet) 20 mg PO BEDTIME [facility] Last Admin: 06/25/25 20:47 Dose: 20 mg Levetiracetam (Levetiracetam 500 Mg Tablet) 500 mg PO BID [facility] Last Admin: 06/26/25 09:13 Dose: 500 mg Levothyroxine Sodium (Levothyroxine Sodium 50 Mcg Tablet) 50 mcg PO DAILY@0600 [facility] Last Admin: 06/26/25 05:58 Dose: 50 mcg Magnesium Hydroxide (Milk Of Magnesia 30 Ml Oral.Susp) 30 ml PO DAILY PRN PRN Reason: Constipation Metoprolol Succinate (Metoprolol Succinate Er 12.5 Mg Halftab.Er.24h) 12.5 mg PO DAILY [facility]; Protocol Last Admin: 06/26/25 09:14 Dose: 12.5 mg Nicotine Polacrilex (Nicotine Polacrilex 2 Mg Gum) 4 mg BUCCAL Q2H PRN PRN Reason: Nicotine Cravings Nitroglycerin (Nitroglycerin 0.4 Mg Tab.Subl) 0.5 mg SUBLINGUAL Q5M PRN PRN Reason: Chest Pain Olanzapine (Olanzapine 2.5 Mg Tablet) 2.5 mg PO TID PRN PRN Reason: agitation Last Admin: 06/24/25 16:47 Dose: 2.5 mg Prednisone (Prednisone 5 Mg Tablet) 5 mg PO DAILY [facility] Last Admin: 06/26/25 09:12 Dose: 5 mg Trazodone HCl (Trazodone Hcl 50 Mg Tablet) 50 mg PO BEDTIME MRX1 PRN PRN Reason: Insomnia Last Admin: 06/24/25 20:36 Dose: 50 mg Valsartan (Valsartan 80 Mg Tablet) 80 mg PO DAILY [facility]; Protocol Last Admin: 06/26/25 09:12 Dose: 80 mg Venlafaxine HCl (Venlafaxine Hcl Er 75 Mg Cap.Er.24h) 75 mg PO DAILY [facility] Last Admin: 06/26/25 09:14 Dose: 75 mg Allergies Allergies Allergy/AdvReac Type Severity Reaction Status Date / Time No Known Allergies Allergy Verified 06/18/25 19:01 Assessment & Plan Assessment & Plan (1) Major neurocognitive disorder due to multiple etiologies with behavioral disturbance: Status: Acute Code(s): F02.818 - Dementia in other diseases classified elsewhere, unspecified severity, with other behavioral disturbance Plan Mrs. Dalton is an 85 year-old woman with hx of dementia, Parkisons's who was brought from [facility] due to increase combative behaviors, increase paranoid ideas thinking staff at [facility] were trying to poison her. On the unit, pt continues to decline medications. Seemed somewhat somnolent. Later in evening more combative. PLAN 06/22 spoke with Tonny, pt's HCP and son. may consider rexulti as antipsychotic since it may not have as much impact on underlying movement disorder Parkinson's. pt appears less suspicious and paranoid today. more awake also. 06/23 started rexulti 0.5mg po daily. more agitated, paranoid, hitting staff. Needed chemical restraint olanzapine 5mg IM, valium 5mg IM. 06/24 continues to present as very paranoid, agitated, again required IM olanzapine 5mg. calmer, no over sedated after but still very paranoid. She does not take medications consistently, which then affect his gait. SBP elevated between 150-180's. continue one to one due to increase risk for fall as she is so agitated and attempting to ambulate/run with no awareness. 06/25 calmer, still paranoid, did take some medications today, awaiting how effective for paranoia rexulti is. 06/26 increase rexulti to 1mg po daily. possibility of switching to olanzapine if this medication seems more effective for paranoid delusions. discussed with son advanced dementia, tx plan and need for 26/02 supervision. Reason for continued inpatient stay Substantial Risk for: inability to function Time Spent With Patient Time: Total time managing care of this patient today ____ minutes.
[2025-06-26 20:00] VITALS: BP 162/88; PULSE 70; RESP 16; TEMP 36.3; O2SAT 97
[2025-06-26] MEDS: Carbidopa/Levodopa CR 25/100 TABLET.ER 1 TAB PO (20:48)
[2025-06-27 07:00] VITALS: BP 148/70; PULSE 79; RESP 18; TEMP 36.6; O2SAT 95
[2025-06-27] MEDS: Venlafaxine HCl ER 75 MG CAP.ER.24H PO (08:00)
[2025-06-27] MEDS: Calcium + Vitamin D 250 MG TABLET 500 MG PO (08:00)
[2025-06-27] MEDS: Metoprolol Succinate ER 12.5 MG HALFTAB.ER.24H PO (08:00)
--- NOTE | 2025-06-27 11:40 | P.PNPSI_ITS ---
Subjective Subjective Date of Service: 06/27/25 Reason For Visit: decompensation Interim History: Patient was seen and discussed in rounds today. Records and plans were reviewed. She continues to exhibit paranoid ideations and tendencies. PRNs have been helpful including IM Zyprexa. This morning she received a p.o. Zyprexa and was meeting with her son and [id number]. Eating and sleeping adequately. No changes were made today Review of Systems Review of Systems Yes all other systems are reviewed and are negative Mental Status Exam Mental Status Exam Narrative: Appearance:thin, wearing hospital gown, fair hygiene, in NAD Behavior: guarded Psychomotor: no agitation or retardation noted. Speech: mostly clear, normal rate/rhythm, soft volume, spontaneous TP: linear TC: feeling tired Mood: get away from me!!! Affect: still paranoid/guarded. SI: denies HI: denies VH/AH: no overt signs Delusions:very paranoid towards staff. Insight/judgment: impaired x 2. Memory/cog: alert, oriented to month and year, not oriented to situation. Diagnostics Vital Signs (24Hr): Vital Signs - 24 hr 06/26/25 20:00 06/27/25 07:00 Temperature 97.3 F 97.9 F Pulse Rate 70 79 Respiratory Rate 16 18 Blood Pressure 162/88 H 148/70 H Pulse Oximetry 97 95 Oxygen Delivery Method Room Air Room Air BMI result Body Mass Index 22.5 Labs 06/20/25 07:49 Medications Medications Current Medications Acetaminophen (Acetaminophen 325 Mg Tablet) 650 mg PO Q6H PRN PRN Reason: Headache/Pain, Scale 1-10 Last Admin: 06/26/25 20:55 Dose: 650 mg Al Hydroxide/Mg Hydroxide (Magnesium Hydrox/Alum Hydrox 30 Ml Oral.Susp) 30 ml PO Q6H PRN PRN Reason: Heartburn/Nausea Amlodipine Besylate (Amlodipine Besylate 5 Mg Tablet) 5 mg PO DAILY [facility]; Protocol Last Admin: 06/27/25 08:00 Dose: 5 mg Aspirin (Aspirin 81 Mg Tab.Chew) 81 mg PO DAILY [facility] Last Admin: 06/27/25 08:00 Dose: 81 mg Atorvastatin Calcium (Atorvastatin Calcium 40 Mg Tablet) 40 mg PO BEDTIME [facility] Last Admin: 06/26/25 20:49 Dose: 40 mg Brexpiprazole (Brexpiprazole 1 Mg Tablet) 1 mg PO DAILY [facility] Last Admin: 06/27/25 08:00 Dose: 1 mg Calcium Carbonate/Cholecalciferol (Calcium + Vitamin D 250 Mg Tablet) 500 mg PO BID [facility] Last Admin: 06/27/25 08:00 Dose: 500 mg Carbidopa/Levodopa (Carbidopa/Levodopa Cr 25/100 Tablet.Er) 1 tab PO BEDTIME [facility] Last Admin: 06/26/25 20:48 Dose: 1 tab Carbidopa/Levodopa (Carbidopa/Levodopa 25/100 Tablet) 2 tab PO TID@0700,1200,1700 [facility] Last Admin: 06/27/25 06:42 Dose: 2 tab Cyanocobalamin (Cyanocobalamin (Vitamin B-12) 500 Mcg Tablet) 500 mcg PO DAILY [facility] Last Admin: 06/27/25 08:00 Dose: 500 mcg Docusate Sodium (Docusate Sodium 100 Mg Capsule) 100 mg PO TID PRN PRN Reason: Constipation Famotidine (Famotidine 20 Mg Tablet) 20 mg PO BEDTIME [facility] Last Admin: 06/26/25 20:49 Dose: 20 mg Levetiracetam (Levetiracetam 500 Mg Tablet) 500 mg PO BID [facility] Last Admin: 06/27/25 08:00 Dose: 500 mg Levothyroxine Sodium (Levothyroxine Sodium 50 Mcg Tablet) 50 mcg PO DAILY@0600 [facility] Last Admin: 06/27/25 06:07 Dose: 50 mcg Magnesium Hydroxide (Milk Of Magnesia 30 Ml Oral.Susp) 30 ml PO DAILY PRN PRN Reason: Constipation Metoprolol Succinate (Metoprolol Succinate Er 12.5 Mg Halftab.Er.24h) 12.5 mg PO DAILY [facility]; Protocol Last Admin: 06/27/25 08:00 Dose: 12.5 mg Nicotine Polacrilex (Nicotine Polacrilex 2 Mg Gum) 4 mg BUCCAL Q2H PRN PRN Reason: Nicotine Cravings Nitroglycerin (Nitroglycerin 0.4 Mg Tab.Subl) 0.5 mg SUBLINGUAL Q5M PRN PRN Reason: Chest Pain Olanzapine (Olanzapine 2.5 Mg Tablet) 2.5 mg PO TID PRN PRN Reason: agitation Last Admin: 06/27/25 08:03 Dose: 2.5 mg Olanzapine (Olanzapine 5 Mg Tablet) 5 mg PO DAILY PRN PRN Reason: severe agitation Prednisone (Prednisone 5 Mg Tablet) 5 mg PO DAILY [facility] Last Admin: 06/27/25 08:16 Dose: 5 mg Trazodone HCl (Trazodone Hcl 50 Mg Tablet) 50 mg PO BEDTIME MRX1 PRN PRN Reason: Insomnia Last Admin: 06/24/25 20:36 Dose: 50 mg Valsartan (Valsartan 80 Mg Tablet) 80 mg PO DAILY [facility]; Protocol Last Admin: 06/27/25 07:59 Dose: 80 mg Venlafaxine HCl (Venlafaxine Hcl Er 75 Mg Cap.Er.24h) 75 mg PO DAILY [facility] Last Admin: 06/27/25 08:00 Dose: 75 mg Allergies Allergies Allergy/AdvReac Type Severity Reaction Status Date / Time No Known Allergies Allergy Verified 06/18/25 19:01 Assessment & Plan Assessment & Plan (1) Major neurocognitive disorder due to multiple etiologies with behavioral disturbance: Status: Acute Code(s): F02.818 - Dementia in other diseases classified elsewhere, unspecified severity, with other behavioral disturbance Plan Mrs. Dalton is an 85 year-old woman with hx of dementia, Parkisons's who was brought from [facility] due to increase combative behaviors, increase paranoid ideas thinking staff at [facility] were trying to poison her. On the unit, pt continues to decline medications. Seemed somewhat somnolent. Later in evening more combative. PLAN 06/22 spoke with Tonny, pt's HCP and son. may consider rexulti as antipsychotic since it may not have as much impact on underlying movement disorder Parkinson's. pt appears less suspicious and paranoid today. more awake also. 06/23 started rexulti 0.5mg po daily. more agitated, paranoid, hitting staff. Needed chemical restraint olanzapine 5mg IM, valium 5mg IM. 06/24 continues to present as very paranoid, agitated, again required IM olanzapine 5mg. calmer, no over sedated after but still very paranoid. She does not take medications consistently, which then affect his gait. SBP elevated between 150-180's. continue one to one due to increase risk for fall as she is so agitated and attempting to ambulate/run with no awareness. 06/25 calmer, still paranoid, did take some medications today, awaiting how effective for paranoia rexulti is. 06/26 increase rexulti to 1mg po daily. possibility of switching to olanzapine if this medication seems more effective for paranoid delusions. discussed with son advanced dementia, tx plan and need for 26/02 supervision. 06/27:Continue current regimen and plans Reason for continued inpatient stay Substantial Risk for: inability to function and med/psych decompensation Time Spent With Patient Time: Total time managing care of this patient today ____ minutes.
[2025-06-27 20:00] VITALS: BP 140/68; PULSE 75; RESP 16; TEMP 36.6; O2SAT 96
[2025-06-28 07:50] VITALS: BP 110/63; PULSE 89; RESP 18; TEMP 36.7; O2SAT 95
[2025-06-28] MEDS: Metoprolol Succinate ER 12.5 MG HALFTAB.ER.24H PO (08:05)
[2025-06-28] MEDS: Calcium + Vitamin D 250 MG TABLET 500 MG PO ×2 (08:06→20:18)
[2025-06-28] MEDS: Venlafaxine HCl ER 75 MG CAP.ER.24H PO (08:06)
--- NOTE | 2025-06-28 12:37 | P.PNPSI_ITS ---
Subjective Subjective Date of Service: 06/28/25 Reason For Visit: decompensation Interim History: Patient was seen and discussed in rounds today. Records and plans were reviewed. She was sitting comfortably having lunch with her son present. She is attending groups at times she continues to be hostile, sexually inappropriate. Has been accepting the Zyprexa today. Continues to be paranoid. No changes were made today Review of Systems Review of Systems Yes all other systems are reviewed and are negative Mental Status Exam Mental Status Exam Narrative: Appearance:thin, wearing hospital gown, fair hygiene, in NAD Behavior: guarded Psychomotor: no agitation or retardation noted. Speech: mostly clear, normal rate/rhythm, soft volume, spontaneous TP: linear TC: feeling tired Mood: get away from me!!! Affect: still paranoid/guarded. SI: denies HI: denies VH/AH: no overt signs Delusions:very paranoid towards staff. Insight/judgment: impaired x 2. Memory/cog: alert, oriented to month and year, not oriented to situation. Diagnostics Vital Signs (24Hr): Vital Signs - 24 hr 06/27/25 20:00 06/28/25 07:50 Temperature 98 F 98.0 F Pulse Rate 75 89 Respiratory Rate 16 18 Blood Pressure 140/68 H 110/63 Pulse Oximetry 96 95 Oxygen Delivery Method Room Air Room Air BMI result Body Mass Index 22.5 Labs 06/20/25 07:49 Medications Medications Current Medications Acetaminophen (Acetaminophen 325 Mg Tablet) 650 mg PO Q6H PRN PRN Reason: Headache/Pain, Scale 1-10 Last Admin: 06/26/25 20:55 Dose: 650 mg Al Hydroxide/Mg Hydroxide (Magnesium Hydrox/Alum Hydrox 30 Ml Oral.Susp) 30 ml PO Q6H PRN PRN Reason: Heartburn/Nausea Amlodipine Besylate (Amlodipine Besylate 5 Mg Tablet) 5 mg PO DAILY [facility]; Protocol Last Admin: 06/28/25 08:06 Dose: 5 mg Aspirin (Aspirin 81 Mg Tab.Chew) 81 mg PO DAILY [facility] Last Admin: 06/28/25 08:06 Dose: 81 mg Atorvastatin Calcium (Atorvastatin Calcium 40 Mg Tablet) 40 mg PO BEDTIME [facility] Last Admin: 06/27/25 21:29 Dose: Not Given Brexpiprazole (Brexpiprazole 1 Mg Tablet) 1 mg PO DAILY [facility] Last Admin: 06/28/25 08:06 Dose: 1 mg Calcium Carbonate/Cholecalciferol (Calcium + Vitamin D 250 Mg Tablet) 500 mg PO BID [facility] Last Admin: 06/28/25 08:06 Dose: 500 mg Carbidopa/Levodopa (Carbidopa/Levodopa Cr 25/100 Tablet.Er) 1 tab PO BEDTIME [facility] Last Admin: 06/27/25 21:30 Dose: Not Given Carbidopa/Levodopa (Carbidopa/Levodopa 25/100 Tablet) 2 tab PO TID@0700,1200,1700 [facility] Last Admin: 06/28/25 11:36 Dose: 2 tab Cyanocobalamin (Cyanocobalamin (Vitamin B-12) 500 Mcg Tablet) 500 mcg PO DAILY [facility] Last Admin: 06/28/25 08:06 Dose: 500 mcg Docusate Sodium (Docusate Sodium 100 Mg Capsule) 100 mg PO TID PRN PRN Reason: Constipation Famotidine (Famotidine 20 Mg Tablet) 20 mg PO BEDTIME [facility] Last Admin: 06/27/25 21:30 Dose: Not Given Levetiracetam (Levetiracetam 500 Mg Tablet) 500 mg PO BID [facility] Last Admin: 06/28/25 08:05 Dose: 500 mg Levothyroxine Sodium (Levothyroxine Sodium 50 Mcg Tablet) 50 mcg PO DAILY@0600 [facility] Last Admin: 06/28/25 05:59 Dose: 50 mcg Magnesium Hydroxide (Milk Of Magnesia 30 Ml Oral.Susp) 30 ml PO DAILY PRN PRN Reason: Constipation Metoprolol Succinate (Metoprolol Succinate Er 12.5 Mg Halftab.Er.24h) 12.5 mg PO DAILY [facility]; Protocol Last Admin: 06/28/25 08:05 Dose: 12.5 mg Nicotine Polacrilex (Nicotine Polacrilex 2 Mg Gum) 4 mg BUCCAL Q2H PRN PRN Reason: Nicotine Cravings Nitroglycerin (Nitroglycerin 0.4 Mg Tab.Subl) 0.5 mg SUBLINGUAL Q5M PRN PRN Reason: Chest Pain Olanzapine (Olanzapine 2.5 Mg Tablet) 2.5 mg PO TID PRN PRN Reason: agitation Last Admin: 06/28/25 11:37 Dose: 2.5 mg Olanzapine (Olanzapine 5 Mg Tablet) 5 mg PO DAILY PRN PRN Reason: severe agitation Prednisone (Prednisone 5 Mg Tablet) 5 mg PO DAILY [facility] Last Admin: 06/28/25 08:06 Dose: 5 mg Trazodone HCl (Trazodone Hcl 50 Mg Tablet) 50 mg PO BEDTIME MRX1 PRN PRN Reason: Insomnia Last Admin: 06/24/25 20:36 Dose: 50 mg Valsartan (Valsartan 80 Mg Tablet) 80 mg PO DAILY [facility]; Protocol Last Admin: 06/28/25 08:05 Dose: 80 mg Venlafaxine HCl (Venlafaxine Hcl Er 75 Mg Cap.Er.24h) 75 mg PO DAILY [facility] Last Admin: 06/28/25 08:06 Dose: 75 mg Allergies Allergies Allergy/AdvReac Type Severity Reaction Status Date / Time No Known Allergies Allergy Verified 06/18/25 19:01 Assessment & Plan Assessment & Plan (1) Major neurocognitive disorder due to multiple etiologies with behavioral disturbance: Status: Acute Code(s): F02.818 - Dementia in other diseases classified elsewhere, unspecified severity, with other behavioral disturbance Plan Mrs. Dalton is an 85 year-old woman with hx of dementia, Parkisons's who was brought from [facility] due to increase combative behaviors, increase paranoid ideas thinking staff at [facility] were trying to poison her. On the unit, pt continues to decline medications. Seemed somewhat somnolent. Later in evening more combative. PLAN 06/22 spoke with Tonny, pt's HCP and son. may consider rexulti as antipsychotic since it may not have as much impact on underlying movement disorder Parkinson's. pt appears less suspicious and paranoid today. more awake also. 06/23 started rexulti 0.5mg po daily. more agitated, paranoid, hitting staff. Needed chemical restraint olanzapine 5mg IM, valium 5mg IM. 06/24 continues to present as very paranoid, agitated, again required IM olanzapine 5mg. calmer, no over sedated after but still very paranoid. She does not take medications consistently, which then affect his gait. SBP elevated between 150-180's. continue one to one due to increase risk for fall as she is so agitated and attempting to ambulate/run with no awareness. 06/25 calmer, still paranoid, did take some medications today, awaiting how effective for paranoia rexulti is. 06/26 increase rexulti to 1mg po daily. possibility of switching to olanzapine if this medication seems more effective for paranoid delusions. discussed with son advanced dementia, tx plan and need for 26/02 supervision. 06/27:Continue current regimen and plans 06/28:Continue current regimen and plans Reason for continued inpatient stay Substantial Risk for: inability to function Time Spent With Patient Time: Total time managing care of this patient today ____ minutes.
--- NOTE | 2025-06-28 16:19 | PC.NURSE ---
Addendum entered by Iliana Oseguera RN 06/28/25 16:39: Administered 2.5 mg Olanzapine for agitation per Dr Becerril. Original Note: Gave patient Olanzapine 2.5mg at 11:37am per Dr. Becerril
[2025-06-28 20:00] VITALS: BP 124/60; PULSE 75; RESP 16; TEMP 36.2; O2SAT 100
[2025-06-28] MEDS: Carbidopa/Levodopa CR 25/100 TABLET.ER 1 TAB PO (20:18)
--- NOTE | 2025-06-29 06:55 | PC.NURSE ---
Pt too sedated to swallow morning medications.
[2025-06-29 08:30] VITALS: BP 136/60; PULSE 60; RESP 15; TEMP 36.9; O2SAT 96
--- NOTE | 2025-06-29 10:01 | HO.PSYCHPN ---
Subjective Subjective Date of Service: 06/29/25 Reason For Visit: decompensation Subjective Notes: Conditional Voluntary Healthcare Proxy: Yes Interim History: Pt slept through the night. She was somnolent this morning and missed morning medications. She received prn olanzapine Sunday and Sunday in addition to rexulti. Seen later in the day. She is calmer, still guarded and worried that people may again tried to harm her. She does report feeling better. Medication Compliance: Yes Mental Status Exam Mental Status Exam Narrative: Appearance:thin, wearing hospital gown, fair hygiene, in NAD Behavior: guarded Psychomotor: no agitation or retardation noted. Speech: mostly clear, normal rate/rhythm, soft volume, spontaneous TP: linear TC: feeling tired Mood: get away from me!!! Affect: still paranoid/guarded. SI: denies HI: denies VH/AH: no overt signs Delusions:very paranoid towards staff. Insight/judgment: impaired x 2. Memory/cog: alert, oriented to month and year, not oriented to situation. Diagnostics Vital Signs (24Hr): Vital Signs - 24 hr 06/28/25 20:00 06/29/25 08:30 Temperature 97.2 F 98.4 F Pulse Rate 75 60 Respiratory Rate 16 15 Blood Pressure 124/60 136/60 Pulse Oximetry 100 96 Oxygen Delivery Method Room Air Room Air BMI result Body Mass Index 22.5 Labs 06/20/25 07:49 Medications Medications Current Medications Acetaminophen (Acetaminophen 325 Mg Tablet) 650 mg PO Q6H PRN PRN Reason: Headache/Pain, Scale 1-10 Last Admin: 06/26/25 20:55 Dose: 650 mg Al Hydroxide/Mg Hydroxide (Magnesium Hydrox/Alum Hydrox 30 Ml Oral.Susp) 30 ml PO Q6H PRN PRN Reason: Heartburn/Nausea Amlodipine Besylate (Amlodipine Besylate 5 Mg Tablet) 5 mg PO DAILY [facility]; Protocol Last Admin: 06/28/25 08:06 Dose: 5 mg Aspirin (Aspirin 81 Mg Tab.Chew) 81 mg PO DAILY [facility] Last Admin: 06/28/25 08:06 Dose: 81 mg Atorvastatin Calcium (Atorvastatin Calcium 40 Mg Tablet) 40 mg PO BEDTIME [facility] Last Admin: 06/28/25 20:18 Dose: 40 mg Brexpiprazole (Brexpiprazole 1 Mg Tablet) 1 mg PO DAILY [facility] Last Admin: 06/28/25 08:06 Dose: 1 mg Calcium Carbonate/Cholecalciferol (Calcium + Vitamin D 250 Mg Tablet) 500 mg PO BID [facility] Last Admin: 06/28/25 20:18 Dose: 500 mg Carbidopa/Levodopa (Carbidopa/Levodopa Cr 25/100 Tablet.Er) 1 tab PO BEDTIME [facility] Last Admin: 06/28/25 20:18 Dose: 1 tab Carbidopa/Levodopa (Carbidopa/Levodopa 25/100 Tablet) 2 tab PO TID@0700,1200,1700 [facility] Last Admin: 06/29/25 06:54 Dose: Not Given Cyanocobalamin (Cyanocobalamin (Vitamin B-12) 500 Mcg Tablet) 500 mcg PO DAILY [facility] Last Admin: 06/28/25 08:06 Dose: 500 mcg Docusate Sodium (Docusate Sodium 100 Mg Capsule) 100 mg PO TID PRN PRN Reason: Constipation Famotidine (Famotidine 20 Mg Tablet) 20 mg PO BEDTIME [facility] Last Admin: 06/28/25 20:18 Dose: 20 mg Levetiracetam (Levetiracetam 500 Mg Tablet) 500 mg PO BID [facility] Last Admin: 06/28/25 20:18 Dose: 500 mg Levothyroxine Sodium (Levothyroxine Sodium 50 Mcg Tablet) 50 mcg PO DAILY@0600 [facility] Last Admin: 06/29/25 06:54 Dose: Not Given Magnesium Hydroxide (Milk Of Magnesia 30 Ml Oral.Susp) 30 ml PO DAILY PRN PRN Reason: Constipation Metoprolol Succinate (Metoprolol Succinate Er 12.5 Mg Halftab.Er.24h) 12.5 mg PO DAILY [facility]; Protocol Last Admin: 06/28/25 08:05 Dose: 12.5 mg Nicotine Polacrilex (Nicotine Polacrilex 2 Mg Gum) 4 mg BUCCAL Q2H PRN PRN Reason: Nicotine Cravings Nitroglycerin (Nitroglycerin 0.4 Mg Tab.Subl) 0.5 mg SUBLINGUAL Q5M PRN PRN Reason: Chest Pain Olanzapine (Olanzapine 2.5 Mg Tablet) 2.5 mg PO TID PRN PRN Reason: agitation Last Admin: 06/28/25 16:24 Dose: 2.5 mg Olanzapine (Olanzapine 5 Mg Tablet) 5 mg PO DAILY PRN PRN Reason: severe agitation Last Admin: 06/28/25 22:18 Dose: 5 mg Prednisone (Prednisone 5 Mg Tablet) 5 mg PO DAILY [facility] Last Admin: 06/28/25 08:06 Dose: 5 mg Trazodone HCl (Trazodone Hcl 50 Mg Tablet) 50 mg PO BEDTIME MRX1 PRN PRN Reason: Insomnia Last Admin: 06/28/25 20:18 Dose: 50 mg Valsartan (Valsartan 80 Mg Tablet) 80 mg PO DAILY [facility]; Protocol Last Admin: 06/28/25 08:05 Dose: 80 mg Venlafaxine HCl (Venlafaxine Hcl Er 75 Mg Cap.Er.24h) 75 mg PO DAILY [facility] Last Admin: 06/28/25 08:06 Dose: 75 mg Allergies Allergies Allergy/AdvReac Type Severity Reaction Status Date / Time No Known Allergies Allergy Verified 06/18/25 19:01 Assessment & Plan Assessment & Plan (1) Major neurocognitive disorder due to multiple etiologies with behavioral disturbance: Status: Acute Code(s): F02.818 - Dementia in other diseases classified elsewhere, unspecified severity, with other behavioral disturbance Plan Mrs. Dalton is an 85 year-old woman with hx of dementia, Parkisons's who was brought from [facility] due to increase combative behaviors, increase paranoid ideas thinking staff at [facility] were trying to poison her. On the unit, pt continues to decline medications. Seemed somewhat somnolent. Later in evening more combative. PLAN 06/22 spoke with Tonny, pt's HCP and son. may consider rexulti as antipsychotic since it may not have as much impact on underlying movement disorder Parkinson's. pt appears less suspicious and paranoid today. more awake also. 06/23 started rexulti 0.5mg po daily. more agitated, paranoid, hitting staff. Needed chemical restraint olanzapine 5mg IM, valium 5mg IM. 06/24 continues to present as very paranoid, agitated, again required IM olanzapine 5mg. calmer, no over sedated after but still very paranoid. She does not take medications consistently, which then affect his gait. SBP elevated between 150-180's. continue one to one due to increase risk for fall as she is so agitated and attempting to ambulate/run with no awareness. 06/25 calmer, still paranoid, did take some medications today, awaiting how effective for paranoia rexulti is. 06/26 increase rexulti to 1mg po daily. possibility of switching to olanzapine if this medication seems more effective for paranoid delusions. discussed with son advanced dementia, tx plan and need for 26/02 supervision. 06/27:Continue current regimen and plans 06/28:Continue current regimen and plans 06/29 less paranoid, but did require prn olanzapine throughout the weekend in addition to rexulti. scheduled 2.5mg po BID. continue rexulti. prn dose limited to 2.5mg up to TID for agitation. Reason for continued inpatient stay Substantial Risk for: inability to function Time Spent With Patient Time: Total time managing care of this patient today ____ minutes.
[2025-06-29 12:05] VITALS: BP 170/70; PULSE 67; RESP 16; TEMP 36.6; O2SAT 98
[2025-06-29] MEDS: Metoprolol Succinate ER 12.5 MG HALFTAB.ER.24H PO (12:12)
[2025-06-29] MEDS: Calcium + Vitamin D 250 MG TABLET 500 MG PO ×2 (12:13→21:31)
[2025-06-29] MEDS: Venlafaxine HCl ER 75 MG CAP.ER.24H PO (12:14)
[2025-06-29 13:44] VITALS: BP 129/60; PULSE 69
[2025-06-29 18:10] VITALS: BP 140/65; PULSE 77; RESP 16; TEMP 36.8; O2SAT 97
--- NOTE | 2025-06-29 18:11 | PC.NURSE ---
Pt c/o intermittent dizziness and slight headache. VSS. Reported to on-call provider.
[2025-06-29 20:00] VITALS: BP 125/59; PULSE 66; RESP 18; TEMP 36.6; O2SAT 96
[2025-06-29] MEDS: Carbidopa/Levodopa CR 25/100 TABLET.ER 1 TAB PO (21:32)
[2025-06-30 08:00] VITALS: BP 128/56; PULSE 84; RESP 18; TEMP 36.4; O2SAT 98
[2025-06-30 09:08] VITALS: BP 121/64
[2025-06-30 09:09] VITALS: BP 121/64; PULSE 74
[2025-06-30] MEDS: Metoprolol Succinate ER 12.5 MG HALFTAB.ER.24H PO (09:09)
[2025-06-30] MEDS: Calcium + Vitamin D 250 MG TABLET 500 MG PO (09:10)
[2025-06-30] MEDS: Venlafaxine HCl ER 75 MG CAP.ER.24H PO (09:21)
--- NOTE | 2025-06-30 09:23 | PM.PSYDC ---
DS: Providers Provider Date of Service: 06/30/25 Date of admission: 06/18/25 18:56 Date of discharge: 06/30/25 Primary care physician: Unknown Physician Consults: 06/18/25 19:54 Consult to Hospitalist Routine Comment: Consulting Provider[place] [facility] [place] [facility] Reason For Exam: admission physical DS: Diagnosis Discharge Diagnosis (1) Major neurocognitive disorder due to multiple etiologies with behavioral disturbance: Status: Acute DS: Medications Discharge Medications Home Medications: Home Medications ?Medication ?Instructions ?Recorded ?Confirmed amlodipine 5 mg tablet 5 mg PO QAM blood pressure 06/18/25 06/18/25 atorvastatin 40 mg tablet 40 mg PO BEDTIME cholesterol 06/18/25 06/18/25 carbidopa ER 25 mg-levodopa 100 mg 1 tab PO BEDTIME 06/18/25 06/18/25 tablet,extended release hydrochlorothiazide 12.5 mg capsule 12.5 mg PO QAM 06/18/25 06/18/25 levetiracetam 500 mg tablet 500 mg PO BID seizures 06/18/25 06/18/25 levothyroxine 50 mcg tablet 50 mcg PO QAM disorder of thyroid 06/18/25 06/18/25 gland meloxicam 7.5 mg tablet 7.5 mg PO DAILY 06/18/25 06/18/25 metoprolol succinate 25 mg 12.5 mg PO QAM blood pressure 06/18/25 06/18/25 tablet,extended release 24 hr olmesartan 20 mg tablet 20 mg PO DAILY blood pressure 06/18/25 06/18/25 prednisone 2.5 mg tablet 5 mg PO DAILY 06/18/25 06/18/25 venlafaxine 150 mg 150 mg PO QAM depressive disorder 06/18/25 06/18/25 capsule,extended release 24 hr aspirin 81 mg tablet 81 mg PO DAILY 06/19/25 06/19/25 calcium 500 mg (as 1 tab PO BID 06/19/25 06/19/25 carbonate)-vitamin D3 10 mcg (400 unit) tablet (Oyster Shell Calcium-Vitamin D3) carbidopa 25 mg-levodopa 100 mg 2 tab PO TID 06/19/25 06/19/25 tablet cyanocobalamin (vitamin B-12) 500 500 mcg PO QAM 06/19/25 06/19/25 mcg tablet docusate sodium 100 mg capsule 100 mg PO TID PRN constipation 06/19/25 06/19/25 famotidine 20 mg tablet 20 mg PO QPM acid reflux 06/19/25 06/19/25 nitroglycerin 0.4 mg sublingual 0.5 mg sublingual Q5M PRN Chest 06/19/25 06/19/25 tablet Pain Mental Status Exam Mental Status Exam Narrative: Appearance:thin, wearing hospital gown, fair hygiene, in NAD Behavior: guarded Psychomotor: no agitation or retardation noted. Speech: mostly clear, normal rate/rhythm, soft volume, spontaneous TP: linear TC: feeling tired Mood: I want to go home Affect: still paranoid/guarded. SI: denies HI: denies VH/AH: no overt signs Delusions:less paranoid towards staff. Insight/judgment: impaired x 2. Memory/cog: alert, oriented to month and year, not oriented to situation. DS: Summary Hospital Course Hospital Course: Mrs. Dalton is an 85 year-old woman with hx of dementia, Parkinsons who was brought from [facility] where she was receiving STR to [facility] due to increase combative behaviors, increase aggression and paranoid delusions thinking staff was poisoning her. Pertinent labs completed in the ED include CBC mostly unremarkable, CMP without electrolyte abnormalities, BUN 30, Cr 1.55, creatinine clearance 33. UA not consistent with UTI. HOSPITAL COURSE On the unit, pt presented as very suspicious and paranoid reporting staff here in the hospital was lying to her and trying to poison her. She was combative with staff, attempting to swing and hit at them. She required chemical restraints in two occasions. She received Olanzapine 5mg IM. She did have periods of increase sedation with olanzapine which then prompted to consider a different antipsychotic for paranoid delusions. Given underlying Parkinson's disease higher potency antipsychotics are not an option. We discussed risks, benefits and alternative treatment options, discussed trial of rexulti as it may have less impact on movement disorder without excessive sedation. She was started on rexulti which was titrated to 1mg po daily. She continued to need prn olanzapine for paranoia and agitation, which at doses of 2.5mg po BID did not seem as sedating. Discussed with patient's HCP and son, Tonny who wants to bring patient home. At this point, pt appears calmer, less paranoid and less combative. However, continues to need prn olanzapine and it is unclear whether she will eventually respond to rexulti. Explained this to Tonny that she can continue rexulti and if effective on its own, olanzapine can be discontinued. If rexulti not effective can continue olanzapine alone with limit in dose of no more than 2.5mg po BID or 7.5mg/day. Effexor was lowered to 75mg po daily as her SBP is elevated and also as it may worsened psychosis and agitation. She has been eating more as she is less paranoid. SBP has been elevated at times. Day of discharged SBP seemed more stable 121/64, HR 74. Given that discharge was not expected today, but no imminent safety concerns and family insists on taking patient, follow up appointment were not able to be scheduled. She does have a PCP who has been prescribing medications including olanzapine. Son reports he plans to follow up with her PCP. Status at Discharge Cognitive/behavioral status at discharge: Pt ambulating with walker, less paranoid and suspicious. She has been eating a bit more as she is less paranoid. Less agitation. Functional status at discharge: uses cane/walker Overall status at discharge: patient is progressing back to baseline Time Spent with Patient Time attestation: Total time managing care of this patient today ___45_ minutes. Time spent: Greater than 30 minutes Discharge Plan Discharge Anticipated Discharge Date/Time: 06/30/25 10:12 Patient Disposition: Home, Self-Care Discharge Diagnosis: Parkinson's Dementia Referrals: Home [Other] - 06/30/25 2:00 pm Referral Note: You will be returning home with your family. Your son Tonny will handle all your aftercare appointments. If he is need of your discharge summary for your appointments please have him contact Medical Records at [phone] Discharge Medications: New atorvastatin 40 mg Tablet 40 mg PO BEDTIME Qty: 30 0RF amlodipine 5 mg Tablet 5 mg PO DAILY Qty: 30 0RF Protocol: Hold for SBP< HOLD for SBP < : 90 venlafaxine 75 mg Capsule,Extended Release 24hr 75 mg PO DAILY Qty: 30 0RF trazodone 50 mg Tablet 50 mg PO BEDTIME PRN (Reason: Insomnia) Qty: 30 0RF levetiracetam 500 mg Tablet 500 mg PO BID Qty: 60 0RF prednisone 5 mg Tablet 5 mg PO DAILY Qty: 30 0RF olanzapine 2.5 mg Tablet 2.5 mg PO BID Qty: 60 0RF famotidine 20 mg Tablet 20 mg PO BEDTIME Qty: 30 0RF cyanocobalamin (vitamin B-12) 500 mcg Tablet 500 mcg PO DAILY Qty: 30 0RF levothyroxine 50 mcg Tablet 50 mcg PO DAILY@0600 Qty: 30 0RF aspirin 81 mg Tablet,Chewable 81 mg PO DAILY Qty: 30 0RF calcium carbonate-vitamin D3 250 mg-3.125 mcg (125 unit) Tablet 2 tab PO BID Qty: 60 0RF Rexulti 1 mg Tablet 1 mg PO DAILY Qty: 30 0RF Continued carbidopa-levodopa 25-100 mg tablet extended release 1 tab PO BEDTIME meloxicam 7.5 mg tablet 7.5 mg PO DAILY olmesartan 20 mg tablet 20 mg PO DAILY nitroglycerin 0.4 mg tablet, sublingual 0.5 mg sublingual Q5M PRN (Reason: Chest Pain) Rx Instructions: do not exceed 3 doses docusate sodium 100 mg capsule 100 mg PO TID PRN (Reason: constipation) carbidopa-levodopa 25-100 mg tablet 2 tab PO TID Discontinued levetiracetam 500 mg tablet 500 mg PO BID atorvastatin 40 mg tablet 40 mg PO BEDTIME venlafaxine 150 mg capsule,extended release 24hr 150 mg PO QAM amlodipine 5 mg tablet 5 mg PO QAM levothyroxine 50 mcg tablet 50 mcg PO QAM prednisone 2.5 mg tablet 5 mg PO DAILY hydrochlorothiazide 12.5 mg capsule 12.5 mg PO QAM metoprolol succinate 25 mg tablet extended release 24 hr 12.5 mg PO QAM aspirin 81 mg Tablet 81 mg PO DAILY famotidine 20 mg tablet 20 mg PO QPM cyanocobalamin (vitamin B-12) 500 mcg tablet 500 mcg PO QAM calcium carbonate-vitamin D3 [Oyster Shell Calcium-Vit D3] 500 mg-10 mcg (400 unit) tablet 1 tab PO BID Discharge Orders: Discharge Order (Routine); Ordered 06/30/25 Ordered By: Farida Pickard Diet: Regular diet Activity on Discharge: Use cane or walker Stand Alone Forms: Patient Portal Discharge page Print Language: Wolof Care Plan Goals: 1. maintain mood 2. less paranoid delusions 3. No aggression towards self or others Health Concerns: Follow up with PCP for routine care. Follow up with neurology for routine care. Plan of Treatment: Pt needs medications to be administered to her due to underlying memory/cognitive impairments, not able to manage medications on her own. Go to nearest ED or call 911 in event of emergency Assessment: Pt is calmer, less paranoid but continues to present with paranoid ideas and agitated at times. She is sleeping for the most part and eating better as she is less paranoid. No SI/HI. No need for chemical restraints in past 5 days. Discharge Date/Time: 06/30/25 14:13
== END 2025-06-30 14:13 | disposition home or self-care (01) | DRG 57 ==
PROVIDERS: Psychiatry & Neurology Psychiatry; Admitting Provider Psychiatry & Neurology Psychiatry; Visit Provider Psychiatry & Neurology Forensic Psychiatry
DX: G20.A1 Parkinson's disease without dyskinesia, without mention of fluctuations (principal); F02.811 Dementia in other diseases classified elsewhere, unspecified severity, with agitation; K21.9 Gastro-esophageal reflux disease without esophagitis; I10 Essential (primary) hypertension; G40.909 Epilepsy, unspecified, not intractable, without status epilepticus; E03.9 Hypothyroidism, unspecified; E78.5 Hyperlipidemia, unspecified; Z78.1 Physical restraint status; Z79.82 Long term (current) use of aspirin; Z79.890 Hormone replacement therapy; Z79.899 Other long term (current) drug therapy
CPT/HCPCS: 36415; 80053; 80061; 83036; 84443; J2359; J3360

== ENCOUNTER → 2025-06-18 18:56 | Outpatient (BNV) | payer MEDICARE, BC, SELFPAY | PROVIDERS: Admitting Provider Psychiatry & Neurology Psychiatry; Visit Provider Psychiatry & Neurology Psychiatry | DX: F03.918 Unspecified dementia, unspecified severity, with other behavioral disturbance (principal) | CPT/HCPCS: 90792; 99232; 99499 ==

== ENCOUNTER → 2025-06-18 18:56 | Outpatient (BNV) | payer MEDICARE, BC, SELFPAY | PROVIDERS: Admitting Provider Psychiatry & Neurology Psychiatry; Visit Provider Nurse Practitioner Family | DX: G20.C Parkinsonism, unspecified (principal); I10 Essential (primary) hypertension; E78.5 Hyperlipidemia, unspecified; E03.9 Hypothyroidism, unspecified | CPT/HCPCS: 99221 ==